=== PATIENT | male | born 1965 | race Caucasian/White ===

== ENCOUNTER 2021-03-29 05:41 | Outpatient (CLI) | payer MEDICAID ==
[~2021-03-29] VITALS: Ht 195.6 cm; Wt 97.1 kg
[2021-03-29] MEDS ORDERED: TIMO5DRO5 OP (14:14)
[2021-03-29] MEDS ORDERED: TMSL.4C PO (14:14)
[2021-03-29] MEDS ORDERED: LISI-729 PO (14:14)
[2021-03-29] MEDS ORDERED: FLUT1BLS3 IH (14:14)
[2021-03-29] MEDS ORDERED: MONT10TA32 PO (14:14)
[2021-03-29] MEDS ORDERED: WARF7.5T3 PO (14:14)
[2021-03-29] MEDS ORDERED: RT-ALBUINH IH (14:14)
[2021-03-29] MEDS ORDERED: NORT75CA PO (14:14)
[2021-03-29] MEDS ORDERED: ATOR20TA66 PO (14:14)
[2021-03-29] MEDS ORDERED: LATA7.5D OP (14:14)
[2021-03-29] MEDS ORDERED: GABA300C PO (14:14)
[2021-03-29] MEDS ORDERED: FLUT16SP22 NS (14:14)
[2021-03-29] MEDS ORDERED: PARO30TA3 PO (14:14)
[2021-03-31] MEDS ORDERED: ACET325C7 PO (11:37)
[2021-03-31] MEDS ORDERED: GAMMAGARD IV (11:37)
== END 2021-03-31 13:21 | disposition home or self-care (01) ==
LOC: PREOP 05:41
PROVIDERS: ATTEND Surgery
DX: Z01.818 Encounter for other preprocedural examination (principal)

== ENCOUNTER 2021-04-05 08:28 | Day surgery (SDC) | payer MEDICARE, MEDICAID ==
[~2021-04-05] VITALS: Ht 195.6 cm; Wt 97.6 kg
[~2021-04-05 08:28] MED LIST: ACET325C7 PO; ATOR20TA66 PO; FLUT16SP22 NS; FLUT1BLS3 IH; GABA300C PO; GAMMAGARD IV; LATA7.5D OP; LISI-729 PO; MONT10TA32 PO; NORT75CA PO; PARO30TA3 PO; RT-ALBUINH IH; TIMO5DRO5 OP; TMSL.4C PO; WARF7.5T3 PO
[2021-04-05] MEDS ORDERED: LACTATED RINGERS 1,000 ML IV ONE (08:36)
[2021-04-05] MEDS ORDERED: LACTATED RINGERS 1,000 ML IV STA (08:37)
[2021-04-05 08:45] VITALS: BP 112/81
--- NOTE | 2021-04-05 09:00 | Progress Note-Pre Operative ---
Pre-Operative Progress Note H&P Reviewed The H&P was reviewed, patient examined and no changes noted. Time Seen by Provider: 08:58 Date H&P Reviewed: Apr 05, 2021 Time H&P Reviewed: 08:58 Pre-Operative Diagnosis: Screening colonoscopy SWATI TREJO DO Apr 05, 2021 08:59
[2021-04-05] MEDS ORDERED: MIDAZOLAM 2 MG/2 ML (VERSED) VIAL ONE (10:02)
[2021-04-05] MEDS ORDERED: PROPOFOL INJECTION 50 ML IV ONE (10:02)
[2021-04-05 10:43] VITALS: BP 97/55
--- NOTE | 2021-04-05 10:43 | Progress Note-Post Operative ---
Post-Operative Progess Note Surgeon (s)/Frame Gate Mortiser Operator (s) Surgeon SWATI TREJO DO Frame Gate Mortiser Operator: Darin Goldberg MSIV Pre-Operative Diagnosis Screening colonoscopy Post-Operative Diagnosis polyps diverticula inbt hemorrhoids Procedure & Operative Findings Date of Procedure 04/05/21 Procedure Performed/Findings Colon with Snare polypectomy After informed consent was obtained, the patient was brought to the endoscopy suite and placed in the bed in the left lateral decubitus position. He was administered IV sedation by the ACQUISITION LEAD, who then monitored his vitals the entire time, heart rate, blood pressure and pulse ox and the scope was inserted, started the colonoscopy. Pushed all the way into about 150 cm to get all the way to cecum, took a picture of the appendiceal orifice, noted the ileocecal valve and then slowly withdrew the scope, insufflating to look circumferentially at the godfrey; starting in the cecum, up the ascending colon. Where I saw 3 small polyps; able to remove one. Then went up to the hepatic flexure, then down the transverse colon, splenic flexure, into the descending colon, down into the sigmoid (took pic of diverticula) and finally into the rectum, retroflexed in the rectal vault, saw some minimal internal hemorrhoids and took a picture of this. The patient tolerated the procedure and he recovered in the endoscopy suite. Anesthesia Type IV sedation by ACQUISITION LEAD Estimated Blood Loss Estimated blood loss (mL): scant Specimens/Packing Specimens Removed asc colon polyp SWATI TREJO DO Apr 05, 2021 10:43
--- NOTE | 2021-04-05 10:44 | Endoscopy Discharge Instruct ---
Endo Procedure/Findings Findings 1.: Polyp 2.: Diverticulosis 3.: Internal Hemorrhoids Discharge Instructions - Activity: You might feel a little sleepy until tomorrow. This is due to the medicine you received to relax you. Until tomorrow, you should: NOT drive a car, operate machinery or power tools. NOT drink any alcoholic beverages. NOT make any important decisions or sign importortant papers. Do not return to work until tomorrow, unless otherwise instructed. Resume previous activities tomorrow. Diet: Start by taking liquids. If you tolerate liquids, advance to solid food. 1.: Colonscopy in 5 years Notify Physician - If you experience excessive bleeding, unusual abdominal pain, fever, or chest pain, contact your doctor immediately. SWATI TREJO DO Apr 05, 2021 10:44
[2021-04-05 10:45] VITALS: BP 105/57
[2021-04-05 11:20] VITALS: BP 110/60
--- NOTE | 2021-04-05 12:11 | Anesthesia-General Post-Op ---
MAC Patient Condition Mental Status/LOC: Same as Preop Cardiovascular: Satisfactory Nausea/Vomiting: Absent Respiratory: Satisfactory Pain: Controlled Complications: Absent Post Op Complications Complications None Follow Up Care/Instructions Patient Instructions None needed. Anesthesiology Discharge Order Discharge Order Patient is doing well, no complaints, stable vital signs, no apparent adverse anesthesia problems. No complications reported per nursing. RAMÍREZ JOSE CRNA Apr 05, 2021 12:11
== END 2021-04-05 11:27 | disposition home or self-care (01) ==
LOC: ENDO 08:28
PROVIDERS: ATTEND Surgery
DX: Z12.11 Encounter for screening for malignant neoplasm of colon (principal); K63.5 Polyp of colon; K57.30 Diverticulosis of large intestine without perforation or abscess without bleeding; K64.8 Other hemorrhoids; J44.9 Chronic obstructive pulmonary disease, unspecified; D64.9 Anemia, unspecified; F32.9 Major depressive disorder, single episode, unspecified; E78.00 Pure hypercholesterolemia, unspecified; R03.0 Elevated blood-pressure reading, without diagnosis of hypertension; Z79.01 Long term (current) use of anticoagulants; Z79.899 Other long term (current) drug therapy; Z79.51 Long term (current) use of inhaled steroids; Z80.9 Family history of malignant neoplasm, unspecified; Z86.010 Personal history of colon polyps
CPT/HCPCS: 88305

== ENCOUNTER 2021-05-07 11:19 | Inpatient (IN) | payer MEDICARE, MEDICAID ==
[~2021-05-07] VITALS: Ht 193 cm; Wt 94.1 kg
[~2021-05-07 11:19] MED LIST changes: -FLUT16SP22 NS; +FLUT16SP22 NSEACH; -TIMO5DRO5 OP; +TIMO5DRO5 OU
[2021-05-07] MEDS ORDERED: LACTATED RINGERS 1,000 ML IV ONE (11:45)
[2021-05-07 12:29] LABS: BASOPHILS % (AUTO) 0 % (0-10); EOSINOPHILS % (AUTO) 0 % (0-10); HEMATOCRIT 40 % (40-54); HEMOGLOBIN 13.3 g/dL (13.3-17.7); LYMPHOCYTES # (AUTO) 1.1 10^3/uL (1.0-4.0); LYMPHOCYTES % (AUTO) 9 % (12-44); MEAN CORPUSCULAR HEMOGLOBIN 29 pg (25-34); MEAN CORPUSCULAR HGB CONC 34 g/dL (32-36); MEAN CORPUSCULAR VOLUME 87 fL (80-99); MEAN PLATELET VOLUME 9.3 fL (9.0-12.2); MONOCYTES # (AUTO) 0.7 10^3/uL (0.0-1.0); MONOCYTES % (AUTO) 6 % (0-12); NEUTROPHILS # (AUTO) 9.8 10^3/uL (1.8-7.8); NEUTROPHILS % (AUTO) 85 % (42-75); PLATELET COUNT 187 10^3/uL (130-400); WHITE BLOOD COUNT 11.6 10^3/uL (4.3-11.0)
[2021-05-07 12:42] LABS: ALBUMIN 3.2 GM/DL (3.2-4.5); CHLORIDE 101 MMOL/L (98-107); POTASSIUM 3.7 MMOL/L (3.6-5.0); SODIUM 131 MMOL/L (135-145)
[2021-05-07 12:43] LABS: CALCIUM 8.8 MG/DL (8.5-10.1)
[2021-05-07 12:44] LABS: GLUCOSE 113 MG/DL (70-105); TOTAL PROTEIN 7.3 GM/DL (6.4-8.2)
[2021-05-07 12:45] LABS: CARBON DIOXIDE 18 MMOL/L (21-32)
[2021-05-07 12:46] LABS: BILIRUBIN,TOTAL 0.8 MG/DL (0.1-1.0)
[2021-05-07 12:47] LABS: ALKALINE PHOSPHATASE 87 U/L (40-136)
[2021-05-07 12:48] LABS: CREATININE SERUM 0.78 MG/DL (0.60-1.30); GFR ESTIMATED 102
[2021-05-07 12:49] LABS: BUN/CREATININE RATIO 17
[2021-05-07 12:50] LABS: INR 1.5 (0.8-1.4); PROTHROMBIN TIME PATIENT 18.7 SEC (12.2-14.7)
[2021-05-07 12:51] LABS: ALANINE AMINOTRANSFERASE 28 U/L (0-55); MAGNESIUM 1.8 MG/DL (1.6-2.4)
[2021-05-07 13:05] LABS: AMPHETAMINE SCREEN, URINE NEGATIVE (NEGATIVE); BARBITURATE SCREEN URINE NEGATIVE (NEGATIVE); BENZODIAZEPINES SCREEN URINE NEGATIVE (NEGATIVE); CANNABINOID SCREEN, URINE NEGATIVE (NEGATIVE); COCAINE SCREEN URINE NEGATIVE (NEGATIVE); METHADONE STAT NEGATIVE (NEGATIVE); METHAMPHETAMINE SCREEN URINE S NEGATIVE (NEGATIVE); OPIATE SCREEN URINE NEGATIVE (NEGATIVE); OXYCODONE STAT NEGATIVE (NEGATIVE); PROPOXYPHENE STAT NEGATIVE (NEGATIVE); TRICYCLIC ANTIDEPRESSANTS SCRE NEGATIVE (NEGATIVE)
--- OUTSIDE RECORDS SUMMARY | 2021-05-07 13:15 | XMS REPORT | Clinical Summary ---
Author Author [facility] Organization [facility] Address Unknown Phone Unavailable Care Team Providers Care Hand Cutter Name Role Phone PCP Unavailable Allergies Not on File Medications Not on file Active Problems Not on file Social History Date Tobacco Use Types Packs/Day Years Used Never Assessed Sex Assigned at Date Recorded Not on file Last Filed Vital Signs Not on file Plan of Treatment Not on file Results Not on filefrom Last 3 Months
--- OUTSIDE RECORDS SUMMARY | 2021-05-07 13:15 | XMS REPORT | Clinical Summary ---
Author Author [facility] Organization [facility] Address Unknown Phone Unavailable Care Team Providers Care Metal Bonder Name Role Phone PCP Unavailable Source Comments [facility] (Labor and Delivery) documents do [facility] appear [facility] Allergies Not on File Medications Please verify current medications with patient. Not on file Active Problems Not on file Social History Date Tobacco Use Types Packs/Day Years Used Never Assessed Sex Assigned at Date Recorded Not on file Last Filed Vital Signs Not on file Plan of Treatment Health Maintenance Due Date Last Done Comments CT Colonography 1965 Colon cancer: DNA-based 1965 stool test (Cologuard) Sigmoidoscopy 1965 gFOBT or FIT 1965 COVID-19 Vaccine (1) 1975 Colonoscopy 2013 Colorectal Cancer 2013 Screening Influenza Vaccine (#1) 2021 Pneumococcal Vaccine: 65+ 2028 Years (1 of 1 - PPSV23) HPV Vaccine Aged Out No longer eligible based on patient's age to complete this topic Pneumococcal Vaccine: Aged Out No longer eligib le based on patient's age to Pediatrics (0 to 5 Years) complete this topic and At-Risk Patients (6 to 64 Years) Results Not on filefrom Last 3 Months
[2021-05-07] MEDS ORDERED: KETOROLAC 30 MG/ML VIAL IVP ONE (13:30)
--- NOTE | 2021-05-07 13:54 | Diagnostic Imaging Report ---
INDICATION: Generalized chest pain. TIME OF EXAM: 1:47 p.m. COMPARISON: No prior studies are available for comparison. FINDINGS: Right-sided chest wall port has tip overlying the SVC-right atrial junction. The heart size is normal. The lungs are clear. No infiltrates are seen. There is no effusion or pneumothorax. IMPRESSION: No acute cardiopulmonary process is detected. Dictated by: Dictated on workstation # [id number]
[2021-05-07 14:08] LABS: BILIRUBIN,URINE NEGATIVE (NEGATIVE); CLARITY,URINE CLEAR; COLOR,URINE YELLOW; GLUCOSE, URINE (UA) NEGATIVE (NEGATIVE); KETONES,URINE 3+ (NEGATIVE); LEUKOCYTE ESTERASE ,URINE NEGATIVE (NEGATIVE); NITRITE,URINE NEGATIVE (NEGATIVE); PH,URINE 8.5 (5-9); PROTEIN,URINE 2+ (NEGATIVE)
[2021-05-07 14:17] LABS: BACTERIA,URINE NEGATIVE /HPF; RBC,URINE >100 /HPF; WBC,URINE RARE /HPF
[2021-05-07] MEDS ORDERED: fentaNYL INJ 100 MCG/2 ML AMP IVP ONE (14:30)
--- NOTE | 2021-05-07 15:04 | ED General ---
General Chief Complaint: General Problems/Pain Stated Complaint: GENERALIZED PAIN Nursing Triage Note: PT BROUGHT IN BY [facility] FROM HOME WITH COMPLAINT OF GENERALIZED PAIN. PT RECEVIED 3RD MODERNA BOOSTER 2 DAYS AGO. Source of Information: Patient, Family, Old Records, Other (Dr. Pettit) (SAE CERON MD) History of Present Illness Date Seen by Provider: May 07, 2021 Time Seen by Provider: 11:43 Initial Comments This 56-year-old man presents to the emergency room via [facility] with complaints of generalized pain. He received motor none booster 2 days ago. He has had some intermittent problems with shoulder pain and chest pain over the last several days. He has been evaluated in the clinic and in the ER in [place]. No significant abnormalities were identified. Patient is a poor historian and seems somewhat confused. After obtaining a better history it sounds like his primary pain is pleuritic in nature and sternal region. He is somewhat tender to pressure over the sternum. He has a history of prescription substance abuse but according to family he is not presently using to their knowledge. Family reports that he has not seemed himself for the past couple of days. He was confronted about that last night at a birthday constitution party. He reported he was groggy because he took Benadryl. Much history was obtained from his daughter Christine who can be reached at [phone]. I also spoke with his son Darin whose phone number is the chart. He is afebrile with stable vital signs. He has a history of IgG hypogammaglobulinemia and receives IgG infusions monthly in [place]. Dr. Cisco Pettit as his PCP. Family reports that he is normally intelligent in his conversation and that his current level of communication is not typical. (SAE CERON MD) Allergies and Home Medications Allergies Coded Allergies: morphine (Unverified Allergy, Severe, 03/31/21) RESP. ISSUES peanut (Unverified Allergy, Severe, 03/31/21) BREATHING ISSUES sumatriptan (Unverified Allergy, Severe, 03/31/21) BREATHING ISSUES Home Medications Acetaminophen 325 Mg Capsule, 500 MG PO TID PRN for PAIN, (Reported) Last Action: Last Taken Edited Albuterol Sulfate 1 Puff Puff, 2 PUFF IH Q4H, (Reported) 1 PUFF = 90 MCG Atorvastatin Calcium 20 Mg Tablet, 20 MG PO DAILY, (Reported) Last Action: Last Taken Edited Fluticasone Propionate 16 Gm [place].susp, 16 GM NS DAILY, (Reported) Fluticasone/Umeclidin/Vilanter 1 Each Blst.w.dev, 1 EACH IH DAILY, (Reported) Gabapentin 300 Mg Capsule, 900 MG PO TID, (Reported) Last Action: Last Taken Edited Latanoprost/Pf 7.5 Ml Drops, 7.5 ML OP UD, (Reported) Lisinopril 5 Mg Tablet, 5 MG PO DAILY, (Reported) Montelukast Sodium 10 Mg Tablet, 10 MG PO DAILY, (Reported) Nortriptyline HCl 75 Mg Capsule, 75 MG PO DAILY, (Reported) Paroxetine HCl 30 Mg Tablet, 30 MG PO DAILY, (Reported) Last Action: Last Taken Edited Tamsulosin HCl 0.4 Mg Cap, 0.4 MG PO DAILY, (Reported) Last Action: Last Taken Edited Timolol Maleate 5 Ml Drops, 1 DROP OP BID, (Reported) Tizanidine HCl 2 Mg Tablet, 2 MG PO DAILY, (Reported) Last Action: New Order Warfarin Sodium 7.5 Mg Tablet, 7.5 MG PO DAILY, (Reported) Last Action: Last Taken Edited [Gammagard ] , 70 GM IV MONTHLY, (Reported) Patient Home Medication List Home Medication List Reviewed: Yes (SAE CERON MD) Review of Systems Review of Systems Constitutional: see HPI, malaise EENTM: no symptoms reported Respiratory: see HPI Cardiovascular: no symptoms reported Gastrointestinal: no symptoms reported Genitourinary: no symptoms reported Musculoskeletal: see HPI Skin: no symptoms reported Psychiatric/Neurological: See HPI Hematologic/Lymphatic: No Symptoms Reported Immunological/Allergic: no symptoms reported (SAE CERON MD) Past Zwxiipw-Wdnwjq-Hirwul Hx Patient Social History Tobacco Use?: Yes Smoking Status: Unknown if Ever Smoked Pt feels they are or have been: No (SAE CERON MD) Seasonal Allergies Seasonal Allergies: No (SAE CERON MD) Past Medical History Surgeries: Yes (BACK SURG X4, X5 RT KNEE SURG, RT HIP IT BAND RELEASE,RT SHOULDER SCOPE X2) Abdominal, Gallbladder, Orthopedic Respiratory: Yes Asthma, COPD Cardiac: No Neurological: No Genitourinary: Yes Prostate Problems Gastrointestinal: Yes Abdominal Hernia Musculoskeletal: Yes (X4 BACK SURGERIES) Back Injury Endocrine: No HEENT: Yes Glaucoma Hearing Impairment: Denies Cancer: No Psychosocial: Yes Depression Integumentary: No Blood Disorders: Yes (HYPOGAMULGLOBULINEMIA) Adverse Reaction/Blood Tranf: No (SAE CERON MD) Physical Exam Vital Signs Vital Signs - First Documented 05/07/21 11:22 Temp 37.0 Pulse 93 Resp 16 B/P (MAP) 157/108 (124) Pulse Ox 97 O2 Delivery Room Air (HERMELINDA VINCENT DO) Vital Signs Capillary Refill : Less Than 3 Seconds (SAE CERON MD) Height, Weight, BMI Height: '" Weight: lbs. oz. kg; 24.00 BMI Method: General Appearance: WD/WN, Mild Distress (Rounds and groans, lying in bed) HEENT: PERRL/EOMI, Normal ENT Inspection, Other (His membranes moist) Neck: Normal Inspection Respiratory: Lungs Clear, Normal Breath Sounds, No Accessory Muscle Use, Other (Anterior chest tender with pressure) Cardiovascular: Regular Rate, Rhythm, No Edema, No Murmur Gastrointestinal: Normal Bowel Sounds, Non Tender, Soft Back: Normal Inspection Extremity: Normal Inspection, No Pedal Edema Neurologic/Psychiatric: Alert, No Motor/Sensory Deficits, senior talent acquisition specialist II-XII Norm as Tested, Other (intermittently confused, poor historian, follows commands) Skin: Normal Color, Warm/Dry (SAE CERON MD) Focused Exam Lactate Level 05/07/21 14:24: Lactic Acid Level 1.22 (HERMELINDA VINCENT DO) Lactic Acid Level Laboratory Tests Test 05/07/21 14:24 Lactic Acid Level 1.22 MMOL/L (0.50-2.00) (HERMELINDA VINCENT DO) Procedures/Interventions Discussed Risk,Benefits: Yes Patient Consents: Yes Opening Pressure: 16 LP performed by anesthesia. See anesthesia note. (SAE CERON MD) Progress/Results/Core Measures Suspected Sepsis SIRS Temperature: Pulse: 93 Respiratory Rate: 16 Laboratory Tests 05/07/21 12:20: White Blood Count 11.6H Blood Pressure 157 /108 Mean: 124 05/07/21 14:24: Lactic Acid Level 1.22 Laboratory Tests 05/07/21 12:20: Creatinine 0.78, INR Comment 1.5H, Platelet Count 187, Total Bilirubin 0.8 05/07/21 18:14: INR Comment 1.3 (ASE CERON MD) Results/Orders Lab Results Laboratory Tests Test 05/07/21 12:20 05/07/21 12:22 05/07/21 12:27 05/07/21 12:39 Range/Units White Blood Count 11.6 H 4.3-11.0 10^3/uL Red Blood Count 4.56 4.30-5.52 10^6/uL Hemoglobin 13.3 13.3-17.7 g/dL Hematocrit 40 40-54 % Mean Corpuscular Volume 87 80-99 fL Mean Corpuscular Hemoglobin 29 25-34 pg Mean Corpuscular Hemoglobin Concent 34 32-36 g/dL Red Cell Distribution Width 12.2 10.0-14.5 % Platelet Count 187 130-400 10^3/uL Mean Platelet Volume 9.3 9.0-12.2 fL Immature Granulocyte % (Auto) 1 % Neutrophils (%) (Auto) 85 H 42-75 % Lymphocytes (%) (Auto) 9 L 12-44 % Monocytes (%) (Auto) 6 0-12 % Eosinophils (%) (Auto) 0 0-10 % Basophils (%) (Auto) 0 0-10 % Neutrophils # (Auto) 9.8 H 1.8-7.8 10^3/uL Lymphocytes # (Auto) 1.1 1.0-4.0 10^3/uL Monocytes # (Auto) 0.7 0.0-1.0 10^3/uL Eosinophils # (Auto) 0.0 0.0-0.3 10^3/uL Basophils # (Auto) 0.0 0.0-0.1 10^3/uL Immature Granulocyte # (Auto) 0.1 0.0-0.1 10^3/uL Prothrombin Time 18.7 H 12.2-14.7 SEC INR Comment 1.5 H 0.8-1.4 Activated Partial Thromboplast Time 138 *H 24-35 SEC D-Dimer 1.58 H 0.00-0.49 UG/ML Sodium Level 131 L 135-145 MMOL/L Potassium Level 3.7 3.6-5.0 MMOL/L Chloride Level 101 98-107 MMOL/L Carbon Dioxide Level 18 L 21-32 MMOL/L Anion Gap 12 5-14 MMOL/L Blood Urea Nitrogen 13 7-18 MG/DL Creatinine 0.78 0.60-1.30 MG/DL Estimat Glomerular Filtration Rate 102 BUN/Creatinine Ratio 17 Glucose Level 113 H 70-105 MG/DL Calcium Level 8.8 8.5-10.1 MG/DL Corrected Calcium 9.4 8.5-10.1 MG/DL Magnesium Level 1.8 1.6-2.4 MG/DL Total Bilirubin 0.8 0.1-1.0 MG/DL Aspartate Amino Transf (AST/SGOT) 32 5-34 U/L Alanine Aminotransferase (ALT/SGPT) 28 0-55 U/L Alkaline Phosphatase 87 40-136 U/L Myoglobin 52.6 10.0-92.0 NG/ML Troponin I < 0.028 <0.028 NG/ML C-Reactive Protein High Sensitivity 33.45 H 0.00-0.50 MG/DL Total Protein 7.3 6.4-8.2 GM/DL Albumin 3.2 3.2-4.5 GM/DL Serum Alcohol < 10 <10 MG/DL Urine Opiates Screen NEGATIVE NEGATIVE Urine Oxycodone Screen NEGATIVE NEGATIVE Urine Methadone Screen NEGATIVE NEGATIVE Urine Propoxyphene Screen NEGATIVE NEGATIVE Urine Barbiturates Screen NEGATIVE NEGATIVE Ur Tricyclic Antidepressants Screen NEGATIVE NEGATIVE Urine Phencyclidine Screen NEGATIVE NEGATIVE Urine Amphetamines Screen NEGATIVE NEGATIVE Urine Methamphetamines Screen NEGATIVE NEGATIVE Urine Benzodiazepines Screen NEGATIVE NEGATIVE Urine Cocaine Screen NEGATIVE NEGATIVE Urine Cannabinoids Screen NEGATIVE NEGATIVE Urine Color YELLOW Urine Clarity CLEAR Urine pH 8.5 5-9 Urine Specific [place] 1.020 1.016-1.022 Urine Protein 2+ H NEGATIVE Urine Glucose (UA) NEGATIVE NEGATIVE Urine Ketones 3+ H NEGATIVE Urine Nitrite NEGATIVE NEGATIVE Urine Bilirubin NEGATIVE NEGATIVE Urine Urobilinogen 1.0 < = 1.0 MG/DL Urine Leukocyte Esterase NEGATIVE NEGATIVE Urine RBC (Auto) 3+ H NEGATIVE Urine RBC >100 H /HPF Urine WBC RARE /HPF Urine Crystals NONE /LPF Urine Bacteria NEGATIVE /HPF Urine Casts NONE /LPF Urine Mucus NEGATIVE /LPF Urine Culture Indicated NO SARS-CoV-2 RNA (RT-PCR) Not Detected Not Detecte Test 05/07/21 14:24 05/07/21 14:29 05/07/21 18:14 05/07/21 19:52 Range/Units Lactic Acid Level 1.22 0.50-2.00 MMOL/L Ammonia 29 11-32 UMOL/L Procalcitonin 0.63 H <0.10 NG/ML Prothrombin Time 16.8 H 12.2-14.7 SEC INR Comment 1.3 0.8-1.4 CSF Tube Number 4 CSF Appearance CLEAR CSF Color COLORLESS CSF WBC 154 H 0-5 CELLS CSF RBC 243 H 0-0 CELLS CSF Lymphocytes 4 % CSF Mononuclear WBCs 18 % CSF Polynuclear WBCs 78 % CSF Glucose 38 L 50-80 MG/DL CSF Total Protein 251 H 15-40 MG/DL (HERMELINDA VINCENT DO) My Orders (HERMELINDA VINCENT DO) Medications Given in ED Current Medications Medications Dose Ordered Sig/Fede Route Start Time Stop Time Status Last Admin Dose Admin Ceftriaxone Sodium 1000 mg/ Sterile Water 10 ml @ 200 mls/hr ONCE ONCE IV 05/07/21 18:15 05/07/21 18:17 DC 05/07/21 19:19 200 MLS/HR Ceftriaxone Sodium 1000 mg/ Sterile Water 10 ml @ 200 mls/hr ONCE ONCE IV 05/07/21 18:15 05/07/21 18:17 DC 05/07/21 19:19 200 MLS/HR Fentanyl Citrate 50 mcg ONCE ONCE IVP 05/07/21 14:30 05/07/21 14:31 DC 05/07/21 14:42 50 MCG Iohexol 100 ml ONCE ONCE IV 05/07/21 15:15 05/07/21 15:16 DC 05/07/21 16:14 77 ML Ketorolac Tromethamine 10 mg ONCE ONCE IVP 05/07/21 13:30 05/07/21 13:31 DC 05/07/21 13:41 10 MG Sodium Chloride 100 ml ONCE ONCE IV 05/07/21 15:15 05/07/21 15:16 DC 05/07/21 16:14 80 ML (HERMELINDA VINCENT DO) Vital Signs/I&O 05/07/21 11:22 Temp 37.0 Pulse 93 Resp 16 B/P (MAP) 157/108 (124) Pulse Ox 97 O2 Delivery Room Air 05/08/21 00:00 Intake Total 1020 ml Balance 1020 ml (HERMELINDA VINCENT DO) Vital Signs/I&O Capillary Refill : Less Than 3 Seconds (SAE CERON MD) Blood Pressure Mean: 124 Progress Note : Progress Note Patient received a liter of IV fluid. Work-up was relatively unremarkable initially. D-dimer was elevated and INR was subtherapeutic. Therefore CT angiogram of the chest was obtained. No pulmonary emboli were identified. He is afebrile with a normal white count but CRP is significantly elevated. This is a matter of concern. Due to his waxing and waning altered mental status and elevated CRP with immunodeficiency, LP was felt necessary. X-ray of the lumbar spine was obtained to ensure no hardware from his prior surgeries would be in the way. Anesthesia performed LP with an opening pressure of 16 cm of water. He received Rocephin 2 g IV presumptively for possible meningitis. He did have sinusitis noted on CT of the head. (SAE CERON MD) Progress Note : Progress Note 2100--ASSUMED CARE OF PT AT SHIFT CHANGE. LP HAS BEEN DONE AND IS PENDING RESULTS. PT CONTINUES TO BE CONFUSED AND AGITATED, NOT TALKING OR FOLLOWING COMMANDS. DR. CERON HAS ALREADY DISCUSSED WITH DR. PALMER AND PT IS BEING ADMITTED TO ICU WITH A SITTER. PT HAS BEEN GIVEN ROCEPHIN PT GIVEN ATIVAN JUST PRIOR TO BEING TRANSFERRED TO ICU, DUE TO AGITATION, TRYING TO GET OUT OF BED. (HERMELINDA VINCENT DO) ECG Initial ECG Impression Date: May 07, 2021 Initial ECG Impression Time: 12:31 Initial ECG Rate: 91 Initial ECG Rhythm: S.Tach Comment Mild sinus tachycardia with multiple premature atrial complexes. No ST elevation or depression. No abnormal intervals or axis deviation. (SAE CERON MD) Diagnostic Imaging Diagonstic Imaging: Xray Plain Films/CT/US/NM/MRI: chest Comments Chest x-ray viewed by me and report reviewed. See report below: NAME: ROCHELLE MOELLER REC#: [id number] PT STATUS: REG ER : 1965 PHYSICIAN: SAE CERON MD ADMIT DATE: 05/07/21/ER Signed Date of Exam:05/07/21 CHEST 1 VIEW, AP/PA ONLY INDICATION: Generalized chest pain. TIME OF EXAM: 1:47 p.m. COMPARISON: No prior studies are available for comparison. FINDINGS: Right-sided chest wall port has tip overlying the SVC-right atrial junction. The heart size is normal. The lungs are clear. No infiltrates are seen. There is no effusion or pneumothorax. IMPRESSION: No acute cardiopulmonary process is detected. Dictated by: Dictated on workstation # [id number] Dict: 05/07/21 1349 Trans: 05/07/21 1502 [id number] Interpreted by: KAREN FERRERA MD Electronically signed by: KAREN FERRERA MD 05/07/21 1505 Diagonstic Imaging: CT Plain Films/CT/US/NM/MRI: chest Comments CT angiogram chest viewed by me and preliminary report reviewed. See preliminary report below: (SAE CERON MD) Departure Communication (Admissions) Family Conversation SPOKE WITH PT'S DAUGHTER AND UPDATED HER ON PT'S CONDITION. 2116--SPOKE WITH DR. PALMER, ACCEPTS PT FOR ADMIT. REVIEWED LP RESULTS. WILL ADD ENCEPHALITIS PANEL TO THE CSF STUDIES. WILL ALSO GIVE ACYCLOVIR. 2127--REPORT TO E-ICU PHYSICIAN. NO ADDITIONAL RECOMMENDATIONS AT THIS TIME (HERMELINDA VINCENT DO) Impression Primary Impression: Encephalitis Additional Impressions: Atypical chest pain Hematuria Qualified Codes: R31.9 - Hematuria, unspecified Abnormal CT scan, chest Altered mental status Qualified Codes: R41.82 - Altered mental status, unspecified Immunocompromised Sinusitis Qualified Codes: J32.9 - Chronic sinusitis, unspecified IgG gammopathy Disposition: ADMITTED INPATIENT Condition: Stable Admissions Decision to Admit Reason: Admit from ER (General) Decision to Admit/Date: May 07, 2021 Time/Decision to Admit Time: 21:20 (HERMELINDA VINCENT DO) Departure-Patient Inst. Referrals: NO,LOCAL PHYSICIAN (PCP/Family) Primary Care Physician SAE CERON MD May 07, 2021 15:04 HERMELINDA VINCENT DO May 07, 2021 21:55
[2021-05-07] MEDS ORDERED: HOLD METFORMIN - RECEIVED CONTRAST 20 ML VIAL IV SCH (15:15)
[2021-05-07] MEDS ORDERED: NS 100 ML (IVPB) BAG IV ONE (15:15)
[2021-05-07] MEDS ORDERED: IOHEXOL 350 MG/ML 100 ML (OMNIPAQUE 350) VIAL IV ONE (15:15)
--- NOTE | 2021-05-07 16:29 | Diagnostic Imaging Report ---
PROCEDURE: CT angiography of the chest with contrast. TECHNIQUE: Multiple contiguous axial images were obtained through the chest after uneventful bolus administration of intravenous contrast. 3D reconstructed CTA MIP acquisitions were also performed. Auto Exposure Controls were utilized during the CT exam to meet ALARA standards for radiation dose reduction. INDICATION: Dyspnea. Diaphoresis. COMPARISON: None. FINDINGS: There is no evidence of acute pulmonary embolus to the segmental division of the pulmonary arteries. Evaluation of the subsegmental division is suboptimal secondary to motion artifact. Thoracic aorta is normal in course and caliber. By NASCET criteria, there is no focal significant stenosis. There is no evidence of dissection or aneurysm. Heart size is within normal limits. There is no large pericardial effusion. No pathologically enlarged or morphologically abnormal adenopathy is seen within the mediastinum or yoav. There is, however, asymmetric adenopathy in the left axilla. There is also stranding in the subcutaneous fat. Largest lymph node measures 2 x 1.8 cm. Evaluation of the lung kelsey demonstrates mild dependent atelectasis. There is no focal consolidation, large effusion, nor pneumothorax. Small micronodule may be obscured by motion artifact. No distinct pulmonary parenchymal masses are seen. Osseous structures show no acute abnormalities. No lytic or blastic osseous lesions are seen. Included portions of the upper abdomen show partially visualized hypodensity adjacent to the medial margins of the right liver superior to the expected location of the right kidney. Right kidney is not included in the [id number]. IMPRESSION: 1. No acute pulmonary embolus to the segmental division of the pulmonary arteries. 2. Scattered atelectasis and image degradation secondary to motion artifact, but otherwise no acute cardiopulmonary process. 3. Left axillary adenopathy with stranding in the subcutaneous fat. Correlation with site of recent vaccine administration is recommended. 4. Partially visualized hypodensity within the posterior right upper abdominal quadrant. Conceivably, this could be on the basis of a renal cyst. Dedicated CT of the abdomen could be performed for further evaluation when clinically appropriate. Dictated by: Dictated on workstation # [id number]
[2021-05-07] MEDS ORDERED: cefTRIAXone 1,000 MG in WATER (STERILE) FOR INJECTION 10 ML IV ONE ×4 (18:15)
[2021-05-07 18:33] LABS: INR 1.3 (0.8-1.4); PROTHROMBIN TIME PATIENT 16.8 SEC (12.2-14.7)
--- NOTE | 2021-05-07 18:34 | Diagnostic Imaging Report ---
PROCEDURE: CT head without contrast. TECHNIQUE: Multiple contiguous axial images were obtained through the brain without the use of intravenous contrast. Auto Exposure Controls were utilized during the CT exam to meet ALARA standards for radiation dose reduction. INDICATION: Altered mental status, confusion. COMPARISON: None available. FINDINGS: Examination is limited secondary to patient motion. Images were repeated in order to obtain better quality images. No definite intracranial hemorrhage. No midline shift, herniation, obstructive hydrocephalus or extra-axial fluid collection. Focal ovoid hypodensity is noted within the inferior aspect of the right basal ganglia. Left scleral banding. The orbits are otherwise unremarkable. Fluid and mucosal thickening within the sphenoid sinuses and scattered ethmoidal air cells. The calvarium appears intact. IMPRESSION: Age-indeterminate lacunar infarction versus dilated perivascular space within the inferior right basal ganglia. Fluid and mucosal thickening within the sphenoid sinuses and scattered ethmoidal air cells. Recommend correlation for acute sinusitis. Limited examination secondary to motion. If there remains clinical concern, further evaluation with MRI of the brain would be recommended. Dictated by: Dictated on workstation # [id number]
--- NOTE | 2021-05-07 19:29 | Diagnostic Imaging Report ---
INDICATION: Evaluate for hardware prior to lumbar puncture. COMPARISON: None available. TECHNIQUE: Single frontal radiograph of the lumbar spine dated May 07, 2021. FINDINGS: Inferior vena cava filter is present just to the right of the L3/L4 level. Multiple prominent gas-filled loops of bowel are noted. This includes some loops of small bowel which measure over 3 cm. Five lumbar type vertebral bodies are present. No orthopedic hardware within the lumbar spine, itself. The sacroiliac joints are intact. No acute fracture. Mild facet joint degenerative changes. IMPRESSION: Gas-distended loops of bowel, including mildly dilated loops of small bowel. Findings may relate to ileus versus bowel obstruction. Recommend clinical correlation. If there is clinical concern for bowel obstruction, a CT of the abdomen and pelvis would be recommended. Degenerative changes within the lumbar spine without orthopedic hardware within the lumbar spine, itself. Inferior vena cava filter is in place. Dictated by: Dictated on workstation # [id number]
--- NOTE | 2021-05-07 20:11 | Anesthesia-Procedure Note ---
Procedures/Interventions Procedure Start/Stop/Diagnosis Date of Procedure: May 07, 2021 Start Time: 19:40 Referring Physician: Jose Preprocedural Diagnosis: Alt Mental Status, generalized weakness Brief History Consulted for LP by ER Dr. Garcia for Alt mental status and weakness to R/O meningitis. Pt CT showed nothing acute. Repeat INR 1.3. Multiple previous back surgeries but Lumbar A/P film showed no hardware. Pt was alert and consented to procedure. With RN and medical student at bedside, pt was turned left lateral decubitus for procedure. Betadine prep x3 to lumbar spine. Lidocaine 1% to skin 5cc. Initially attempted with 22 g spinal needle but due to severe scar tissue I had to change to 20g in kit. CSF obtained L3-4 after multiple attempts. Pt had difficulty holding still due to pain and I had to redirect multiple times. Opening pressure 16 cmH20. 4 samples of CSF fluid taken under sterile technique and released to RN with report. Needle withdrew and covered with band aid. Advised pt and RN importance of laying flat for a few hours. VSS with no complaints vocalilzed per pt.. Stop Time: 20:00 Postprocedural Diagnosis: Alt mental status, generalized weakness Lumbar Puncture Discussed Risk,Benefits: Yes Patient Consents: Yes Position: Lying, L3-4, L4-5, Left Sterile Technique: Yes Opening Pressure: 16 Fluid Color: clear, yellow tinted Spinal Needle Used: 20g Quinke 3 1/2inch RAMÍREZ JOSE CRNA May 07, 2021 20:11
[2021-05-07 20:29] LABS: CSF GLUCOSE 38 MG/DL (50-80)
[2021-05-07 21:09] LABS: CSF TOTAL PROTEIN 251 MG/DL (15-40)
[2021-05-07 21:17] LABS: APPEARANCE,CSF CLEAR
[2021-05-07 21:18] LABS: COLOR,CSF COLORLESS; RED BLOOD CELL,CSF 243 CELLS (0-0); WHITE BLOOD CELL,CSF 154 CELLS (0-5)
[2021-05-07 21:20] LABS: CSF TUBE NUMBER 4; LYMPHOCYTES,CSF 4 %
[2021-05-07] MEDS ORDERED: cefTRIAXone 2,000 MG in WATER (STERILE) FOR INJECTION 20 ML IV ONE (21:30)
[2021-05-07] MEDS ORDERED: LORazepam INJ 2 MG/ML (ATIVAN) VIAL IVP PRN (22:00)
[2021-05-07] MEDS ORDERED: ACYCLOVIR INJECTION 500 MG/10 ML INJ IV SCH (22:00)
[2021-05-07] MEDS ORDERED: ONDANSETRON 4 MG/2 ML (SDV) Z0FRAN IV PRN (23:30)
[2021-05-08] MEDS ORDERED: NS (IVPB) 250 ML ONE (00:19)
[2021-05-08] MEDS: D5 1/2 NS W/KCL 20 MEQ/L 1,000 ML IV SCH ×4 (00:28→20:59)
[2021-05-08] MEDS: ACYCLOVIR IV SCH ×3 (00:32→16:00)
[2021-05-08] MEDS: NS IV SCH ×3 (00:32→16:00)
[2021-05-08] MEDS: ACETAMINOPHEN 500 MG TAB (TYLENOL) PO PRN ×4 (00:38→21:00)
[2021-05-08 05:05] LABS: BASOPHILS % (AUTO) 0 % (0-10); EOSINOPHILS % (AUTO) 0 % (0-10); HEMATOCRIT 43 % (40-54); HEMOGLOBIN 14.1 g/dL (13.3-17.7); LYMPHOCYTES # (AUTO) 1.1 10^3/uL (1.0-4.0); LYMPHOCYTES % (AUTO) 8 % (12-44); MEAN CORPUSCULAR HEMOGLOBIN 29 pg (25-34); MEAN CORPUSCULAR HGB CONC 33 g/dL (32-36); MEAN CORPUSCULAR VOLUME 88 fL (80-99); MEAN PLATELET VOLUME 9.1 fL (9.0-12.2); MONOCYTES # (AUTO) 1.2 10^3/uL (0.0-1.0); MONOCYTES % (AUTO) 9 % (0-12); NEUTROPHILS # (AUTO) 11.6 10^3/uL (1.8-7.8); NEUTROPHILS % (AUTO) 83 % (42-75); PLATELET COUNT 198 10^3/uL (130-400); WHITE BLOOD COUNT 14.1 10^3/uL (4.3-11.0)
[2021-05-08 05:15] LABS: POTASSIUM 3.8 MMOL/L (3.6-5.0)
[2021-05-08 05:21] LABS: CREATININE SERUM 0.84 MG/DL (0.60-1.30); PHOSPHORUS 3.3 MG/DL (2.3-4.7)
[2021-05-08 05:24] LABS: MAGNESIUM 2.1 MG/DL (1.6-2.4)
[2021-05-08] MEDS ORDERED: VANCOMYCIN INJECTION 0.1 MG in NS (IVPB) 250 ML IV SCH (08:00)
[2021-05-08] MEDS ORDERED: VANCOMYCIN 2000 MG/NS 500 ML IVPB IV NR ×2 (09:00)
[2021-05-08] MEDS: KETOROLAC 30 MG/ML VIAL IVP PRN ×3 (09:14→22:05)
--- NOTE | 2021-05-08 10:43 | History & Physical-Hospitalist ---
History of Present Illness HPI/Chief Complaint This 56-year-old man presents to the emergency room via [facility] with complaints of generalized pain. He received motor none booster 2 days ago. He has had some intermittent problems with shoulder pain and chest pain over the last several days. He has been evaluated in the clinic and in the ER in [place]. No significant abnormalities were identified. Patient is a poor historian and seems somewhat confused. After obtaining a better history it sounds like his primary pain is pleuritic in nature and sternal region. He is somewhat tender to pressure over the sternum. He has a history of prescription substance abuse but according to family he is not presently using to their knowledge. Family reports that he has not seemed himself for the past couple of days. He was confronted about that last night at a birthday republican. He reported he was groggy because he took Benadryl. Much history was obtained from his daughter Christine who can be reached at [phone]. I also spoke with his son Darin whose phone number is the chart. He is afebrile with stable vital signs. 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 Dr. Cisco Pettit as his PCP. Family reports that he is normally intelligent in his conversation and that his current level of communication is not typical Upon my arrival the patient was complaining about headache was able to answer questions appropriately. He denied pain anywhere else with an otherwise negative review of systems. He stated that his headache was present prior to LP done in the emergency room last night it is generalized. Date Seen 05/08/21 Time Seen by a Provider: 07:30 Attending Physician Sara Palmer MD PCP No,Local Physician Referring Physician Date of Admission May 07, 2021 at 21:20 Home Medications & Allergies Home Medications Reviewed patient Home Medication Reconciliation performed by pharmacy medication reconciliations biosolids management technician and/or nursing. Patients Allergies have been reviewed. Allergies Allergies Coded Allergies morphine (Unverified Allergy, Severe, 03/31/21) RESP. ISSUES peanut (Unverified Allergy, Severe, 03/31/21) BREATHING ISSUES sumatriptan (Unverified Allergy, Severe, 03/31/21) BREATHING ISSUES Past Xcpxwco-Emnzcf-Tgeadl Hx Patient Social History Tobacco Use?: Yes Smoking Status: Former Smoker Smokeless Tobacco Frequency: Never a User Additional substance use comme: history of substance abuse Pt feels they are or have been: No Immunizations Up To Date Date of Influenza Vaccine: May 28, 2020 Second COVID19 Vaccination Rasheed: 3RD DOSE 05/05/21 Tetanus Booster (TDap): Unknown Date of Pneumonia Vaccine: Feb 16, 2021 Seasonal Allergies Seasonal Allergies: No Current Status Advance Directives: Unable to obtain Communicates: Unable To Communicate, Verbally Primary Language: Maltese Preferred Spoken Language: Maltese Additional sensory deficits: AMS, PATIENT only says yes or no when asked question Implanted or Applied Medical D: Port-a-cath Past Medical History Surgeries: Abdominal, Gallbladder, Orthopedic Asthma, COPD Prostate Problems Abdominal Hernia Back Injury Glaucoma Hearing Impairment: Denies Depression Blood Disorders: Yes (HYPOGAMULGLOBULINEMIA) Adverse Reaction/Blood Tranf: No Review of Systems Constitutional: see HPI Physical Exam Physical Exam Vital Signs Vital Signs - First Documented 05/07/21 05/08/21 11:22 07:45 Temp 37.0 Pulse 93 Resp 16 B/P (MAP) 157/108 (124) Pulse Ox 97 O2 Delivery Room Air FiO2 100 Capillary Refill : Less Than 3 Seconds Height, Weight, BMI Height: '" Weight: lbs. oz. kg; 25.63 BMI Method: General Appearance: Mild Distress Neck: Other (Mild stiffness range of motion guarded due to pain) Respiratory: Chest Non Tender, Lungs Clear, Normal Breath Sounds, No Accessory Muscle Use, No Respiratory Distress Cardiovascular: Regular Rate, Rhythm, No Edema, No Gallop, No JVD, No Murmur, Normal Peripheral Pulses Gastrointestinal: Normal Bowel Sounds, No Organomegaly, No Pulsatile Mass, Non Tender, Soft Extremity: Normal Capillary Refill, Normal Inspection, Normal Range of Motion, Non Tender, No Calf Tenderness, No Pedal Edema, Other (I could palpate no abnormalities noted the patient have pain in the left axilla where CT scan did reveal adenopathy with stranding no swelling was apparent.) Skin: Normal Color, Warm/Dry, Other (No evidence for cellulitis noted) Results Results/Procedures Labs Laboratory Tests 05/07/21 12:20 05/08/21 04:55 Patient resulted labs reviewed. Assessment/Plan Admission Diagnosis 1. Sepsis due to staph aureus sensitivity pending will initiate vancomycin as I was just contacted by microbiology that they are growing what appears to be staph aureus in all blood cultures. Secondary delirium appears to be improved. Will need to assume meningitis considering 150 a white cells neutrophil predominance low glucose and high protein do have an encephalitis panel pending. As there is no clear infectious source despite unremarkable cardiovascular exa mination to auscultation will obtain echocardiogram and evaluation for any evidence for endocarditis. 2. 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 Admission Status: Inpatient Order (span 2 midnights) Reason for Inpatient Admission: See admission diagnosis Critical Care Critically Ill Patient SARA PALMER MD May 08, 2021 10:42
--- NOTE | 2021-05-08 11:03 | Tele-ICU Progress Note ---
Subjective Date Seen by a Provider: May 08, 2021 Time Seen by a Provider: 10:40 Subjective/Events-last exam This virtual visit was conducted using real time audio/video. Thank you for asking us to see this patient for AMS. HPC: Recent events: Now A and O. PMH: asthma, COPD, IgG defic. SH: smoking history Y FH: Non-contributory PE: Resting comfortably.VSS HEENT: No obvious masses, adenopathy or JVD. Chest: clear to auscultation. CV: RRR S1 S2 No murmur or added sounds. Abd: Non-tender. Bowel sounds Y. : Unremarkable. Jacinto N. WAREHOUSE MATERIAL HANDLER/psychiatric: Alert and oriented, grossly intact. No obvious focal findings. Extremities: No edema. Capillary refill < 3 seconds. Skin: unremarkable. Results: Elevated WCC 14.1, BG 118. CXR unremarkable. CTC neg for PEs. A/P: Respiratory insufficiency/distress: Available chart/ vitals / labs /images reviewed. Video assessment done using teleICU camera, rest of exam as per RN. Critical Care: critically ill patient. Doing better. OK to transfer out if Hospitalist agrees. Discussed with RN Rosi. Asked RN to reach out to eICU if any questions or concerns later. Time spent with patient/coordination of care with other health professionals (mins): 10 Sepsis Event Evaluation Height, Weight, BMI Height: '" Weight: lbs. oz. kg; 25.63 BMI Method: Focused Exam Lactate Level 05/07/21 14:24: Lactic Acid Level 1.22 Exam Exam Patient acknowledged, consented, and participated in this virtual visit which was conducted using real time audio/video Vital Signs Date Time Temp Pulse Resp B/P (MAP) Pulse Ox O2 Delivery O2 Flow Rate FiO2 05/08/21 10:00 85 15 128/85 (101) 97 Room Air 05/08/21 09:00 91 10 112/67 (95) 100 Room Air 05/08/21 08:00 126 30 135/93 (107) 98 Room Air 05/08/21 07:45 Room Air 100 05/08/21 07:00 102 05/08/21 07:00 36.3 92 17 114/64 (81) 99 Room Air 05/08/21 05:55 98 24 140/88 (105) 97 Room Air 05/08/21 05:00 90 15 140/88 (105) 97 Room Air 05/08/21 04:00 36.0 05/08/21 04:00 Room Air 05/08/21 04:00 99 21 129/75 (93) 98 Room Air 05/08/21 03:00 89 22 141/79 (99) 97 Room Air 05/08/21 02:00 101 21 138/82 (100) 96 Room Air 05/08/21 00:57 90 05/08/21 00:45 85 25 114/72 (86) 94 Room Air 05/08/21 00:15 78 34 133/49 (77) 98 Room Air 05/08/21 00:00 36.9 05/07/21 23:45 113 31 108/62 (77) 100 Room Air 05/07/21 23:30 108 12 119/83 (95) 99 Room Air 05/07/21 23:15 108 13 91/38 (55) 97 Room Air 05/07/21 23:04 109 05/07/21 23:00 Room Air 05/07/21 23:00 106 22 133/77 (95) 90 Room Air 05/07/21 22:45 106 20 109/68 98 Room Air 05/07/21 22:30 37.7 05/07/21 11:22 37.0 93 16 157/108 (124) 97 Room Air I & O 05/08/21 07:00 Intake Total 1020 ml Output Total 100 ml Balance 920 ml Height & Weight Height: '" Weight: lbs. oz. kg; 25.63 BMI Method: General Appearance: Mild Distress HEENT: PERRL/EOMI, Normal ENT Inspection, Other (His membranes moist) Neck: Other (Mild stiffness range of motion guarded due to pain) Respiratory: Chest Non Tender, Lungs Clear, Normal Breath Sounds, No Accessory Muscle Use, No Respiratory Distress Cardiovascular: Regular Rate, Rhythm, No Edema, No Gallop, No JVD, No Murmur, Normal Peripheral Pulses Capillary Refill: Less Than 3 Seconds Peripheral Pulses: 1+ Left Dors-Pedis (L), 1+ Radial Pulses (R) Extremity: Normal Capillary Refill, Normal Inspection, Normal Range of Motion, Non Tender, No Calf Tenderness, No Pedal Edema, Other (I could palpate no abnormalities noted the patient have pain in the left axilla where CT scan did reveal adenopathy with stranding no swelling was apparent.) Neurologic/Psychiatric: Alert, No Motor/Sensory Deficits, mixed livestock farmer II-XII Norm as Tested, Other Skin: Normal Color, Warm/Dry, Other (No evidence for cellulitis noted) Results Lab Laboratory Tests 05/07/21 12:20 05/08/21 04:55 Assessment/Plan Assessment/Plan See free text. Critical Care: Critically Ill Patient Time spent on discussion(mins): 0 REYNALDO GODFREY MD May 08, 2021 11:03
[2021-05-08] MEDS: VANCOMYCIN 1 GM/NS 250 ML IVPB IV SCH ×2 (17:04)
[2021-05-08] MEDS: cefTRIAXone 2,000 MG/SWFI 20 ML IV PUSH IV SCH ×2 (20:59)
[2021-05-08] MEDS ORDERED: TIZA-169 PO (21:05)
[2021-05-09] MEDS: VANCOMYCIN 1 GM/NS 250 ML IVPB IV SCH ×2 (00:27)
[2021-05-09] MEDS: NS IV SCH ×3 (01:32→18:30)
[2021-05-09] MEDS: ACYCLOVIR IV SCH ×3 (01:32→18:30)
[2021-05-09] MEDS: KETOROLAC 30 MG/ML VIAL IVP PRN ×3 (03:36→22:09)
[2021-05-09] MEDS: D5 1/2 NS W/KCL 20 MEQ/L 1,000 ML IV SCH ×4 (03:39→23:52)
[2021-05-09 03:48] LABS: BASOPHILS % (AUTO) 0 % (0-10); EOSINOPHILS % (AUTO) 0 % (0-10); HEMATOCRIT 39 % (40-54); HEMOGLOBIN 12.7 g/dL (13.3-17.7); LYMPHOCYTES # (AUTO) 0.6 10^3/uL (1.0-4.0); LYMPHOCYTES % (AUTO) 7 % (12-44); MEAN CORPUSCULAR HEMOGLOBIN 29 pg (25-34); MEAN CORPUSCULAR HGB CONC 33 g/dL (32-36); MEAN CORPUSCULAR VOLUME 88 fL (80-99); MONOCYTES # (AUTO) 0.7 10^3/uL (0.0-1.0); MONOCYTES % (AUTO) 8 % (0-12); NEUTROPHILS # (AUTO) 7.5 10^3/uL (1.8-7.8); NEUTROPHILS % (AUTO) 84 % (42-75); PLATELET COUNT 165 10^3/uL (130-400)
[2021-05-09 04:00] LABS: POTASSIUM 3.5 MMOL/L (3.6-5.0)
[2021-05-09 04:01] LABS: CALCIUM 8.1 MG/DL (8.5-10.1)
[2021-05-09 04:05] LABS: PHOSPHORUS 1.7 MG/DL (2.3-4.7)
[2021-05-09 04:06] LABS: CREATININE SERUM 0.68 MG/DL (0.60-1.30)
[2021-05-09 04:08] LABS: MAGNESIUM 1.9 MG/DL (1.6-2.4)
[2021-05-09] MEDS ORDERED: TROUGH ORDER-PHARMACY XX ONE (07:30)
[2021-05-09] MEDS: ACETAMINOPHEN 500 MG TAB (TYLENOL) PO PRN ×2 (07:48→15:32)
[2021-05-09] MEDS ORDERED: KCL 20 MEQ TAB (K-DUR) PO ONE (09:00)
[2021-05-09] MEDS: VANCOMYCIN 1250 MG/NS 250 ML IVPB IV SCH ×4 (09:30→18:30)
--- NOTE | 2021-05-09 10:21 | Tele-ICU Progress Note ---
Subjective Date Seen by a Provider: May 09, 2021 Time Seen by a Provider: 08:10 Subjective/Events-last exam This virtual visit was conducted using real time audio/video. Thank you for asking us to see this patient for AMS. HPC: Recent events: Now A and O. No events overnight. PMH: asthma, COPD, IgG defic., Substance abuse. SH: smoking history Y FH: Non-contributory PE: Resting comfortably on his side.VSS HEENT: No obvious masses, adenopathy or JVD. Chest: clear to auscultation. CV: RRR S1 S2 No murmur or added sounds. Abd: Non-tender. Bowel sounds Y. : Unremarkable. Jacinto N. ELECTRIC MOTOR REPAIR SUPERVISOR/psychiatric: Alert and oriented, grossly intact. No obvious focal findings. Extremities: No edema. Capillary refill < 3 seconds. Skin: unremarkable. Results: Elevated Hb 12.7 WCC now normal. K 3.5. CXR unremarkable. CTC neg for PEs. A/P: Respiratory insufficiency/distress: resolved. AMS rapidly improving. Available chart/ vitals / labs /images reviewed. Video assessment done using teleICU camera, rest of exam as per RN. Critical Care: Doing better. OK to transfer out if Hospitalist agrees. received KCl. Cont rocephin, acyclovir, vanco. Discussed with CAREY Aranda. Asked RN to reach out to eICU if any questions or concerns later. Time spent with patient/coordination of care with other health professionals (mins): 10 Sepsis Event Evaluation Height, Weight, BMI Height: '" Weight: lbs. oz. kg; 25.63 BMI Method: Focused Exam Lactate Level 05/07/21 14:24: Lactic Acid Level 1.22 Exam Exam Patient acknowledged, consented, and participated in this virtual visit which was conducted using real time audio/video Vital Signs Date Time Temp Pulse Resp B/P (MAP) Pulse Ox O2 Delivery O2 Flow Rate FiO2 05/09/21 10:00 89 12 118/75 (89) 97 Room Air 05/09/21 09:00 90 19 97 Room Air 05/09/21 08:00 95 135/97 (106) 98 Room Air 05/09/21 07:58 Room Air 98 05/09/21 07:58 37.0 05/09/21 07:00 90 05/09/21 07:00 92 13 100 Room Air 8/22/21 06:00 96 25 129/90 (103) 95 Room Air 05/09/21 05:00 92 19 118/72 (87) 98 Room Air 05/09/21 04:00 95 19 120/75 (90) 96 Room Air 05/09/21 04:00 37.4 05/09/21 04:00 Room Air 96 05/09/21 03:00 97 25 146/94 (111) 98 Room Air 05/09/21 02:00 89 22 129/79 (96) 100 Room Air 05/09/21 01:00 90 17 142/95 (111) 98 Room Air 05/09/21 01:00 87 05/09/21 00:24 36.2 05/09/21 00:00 85 22 100 Room Air 05/09/21 00:00 Room Air 100 05/08/21 23:00 85 26 110/85 (93) 98 Room Air 05/08/21 22:00 97 23 115/83 (94) 97 Room Air 05/08/21 21:00 98 125/87 (100) 97 Room Air 05/08/21 20:00 98 124/84 (97) 94 Room Air 05/08/21 20:00 Room Air 100 05/08/21 20:00 38.3 05/08/21 19:00 100 05/08/21 19:00 97 14 134/86 (102) 96 Room Air 05/08/21 18:00 96 25 97 Room Air 05/08/21 17:00 98 29 127/116 (124) 95 Room Air 05/08/21 16:50 Room Air 100 05/08/21 16:14 37.3 05/08/21 16:00 88 23 132/109 (117) 99 Room Air 05/08/21 15:30 37.3 05/08/21 15:00 80 17 124/85 (98) 100 Room Air 05/08/21 14:00 78 13 96/66 (76) 98 Room Air 05/08/21 13:00 88 05/08/21 13:00 92 17 112/71 (84) 96 Room Air 05/08/21 12:08 Room Air 95 05/08/21 12:00 36.2 05/08/21 12:00 83 12 138/92 (107) 94 Room Air 05/08/21 11:00 89 18 133/78 (96) 99 Room Air I & O 05/09/21 07:00 Intake Total 4762.4 ml Output Total 1625 ml Balance 3137.4 ml Height & Weight Height: '" Weight: lbs. oz. kg; 25.63 BMI Method: General Appearance: Mild Distress HEENT: PERRL/EOMI, Normal ENT Inspection, Other (His membranes moist) Neck: Other (Mild stiffness range of motion guarded due to pain) Respiratory: Chest Non Tender, Lungs Clear, Normal Breath Sounds, No Accessory Muscle Use, No Respiratory Distress Cardiovascular: Regular Rate, Rhythm, No Edema, No Gallop, No JVD, No Murmur, Normal Peripheral Pulses Capillary Refill: Less Than 3 Seconds Peripheral Pulses: 1+ Left Dors-Pedis (L), 1+ Radial Pulses (R) Extremity: Normal Capillary Refill, Normal Inspection, Normal Range of Motion, Non Tender, No Calf Tenderness, No Pedal Edema, Other (I could palpate no abnormalities noted the patient have pain in the left axilla where CT scan did reveal adenopathy with stranding no swelling was apparent.) Neurologic/Psychiatric: Alert, No Motor/Sensory Deficits, end matcher II-XII Norm as Tested, Other Skin: Normal Color, Warm/Dry, Other (No evidence for cellulitis noted) Results Lab Laboratory Tests 05/07/21 12:20 05/08/21 04:55 05/09/21 03:34 Assessment/Plan Assessment/Plan See free text. Time spent on discussion(mins): 0 REYNALDO GODFREY MD May 09, 2021 10:21
[2021-05-09] MEDS ORDERED: NORTRIPTYLINE 25 MG (PAMELOR) CAP PO ONE (12:15)
[2021-05-09] MEDS: GABAPENTIN 600 MG (NEURONTIN) TAB PO SCH ×2 (12:49→20:59)
[2021-05-09] MEDS: cefTRIAXone 2,000 MG/SWFI 20 ML IV PUSH IV SCH ×2 (20:59)
[2021-05-10] MEDS: NS IV SCH ×3 (00:41→18:26)
[2021-05-10] MEDS: ACYCLOVIR IV SCH ×3 (00:41→18:26)
[2021-05-10] MEDS: VANCOMYCIN 1250 MG/NS 250 ML IVPB IV SCH ×6 (02:02→18:26)
[2021-05-10] MEDS: ACETAMINOPHEN 500 MG TAB (TYLENOL) PO PRN ×2 (03:33→11:57)
[2021-05-10] MEDS: KETOROLAC 30 MG/ML VIAL IVP PRN ×3 (04:43→21:34)
[2021-05-10 05:05] LABS: BASOPHILS % (AUTO) 0 % (0-10); EOSINOPHILS # (AUTO) 0.1 10^3/uL (0.0-0.3); EOSINOPHILS % (AUTO) 1 % (0-10); HEMATOCRIT 36 % (40-54); HEMOGLOBIN 11.7 g/dL (13.3-17.7); LYMPHOCYTES # (AUTO) 1.1 10^3/uL (1.0-4.0); LYMPHOCYTES % (AUTO) 11 % (12-44); MEAN CORPUSCULAR HEMOGLOBIN 29 pg (25-34); MEAN CORPUSCULAR HGB CONC 33 g/dL (32-36); MEAN CORPUSCULAR VOLUME 88 fL (80-99); MEAN PLATELET VOLUME 9.9 fL (9.0-12.2); MONOCYTES % (AUTO) 10 % (0-12); NEUTROPHILS # (AUTO) 8.1 10^3/uL (1.8-7.8); NEUTROPHILS % (AUTO) 78 % (42-75); PLATELET COUNT 185 10^3/uL (130-400); WHITE BLOOD COUNT 10.3 10^3/uL (4.3-11.0)
[2021-05-10 05:13] LABS: POTASSIUM 3.4 MMOL/L (3.6-5.0)
[2021-05-10 05:15] LABS: CALCIUM 7.9 MG/DL (8.5-10.1)
[2021-05-10 05:19] LABS: CREATININE SERUM 0.68 MG/DL (0.60-1.30); PHOSPHORUS 1.3 MG/DL (2.3-4.7)
[2021-05-10 05:21] LABS: MAGNESIUM 1.8 MG/DL (1.6-2.4)
[2021-05-10] MEDS: D5 1/2 NS W/KCL 20 MEQ/L 1,000 ML IV SCH ×2 (05:45→09:00)
[2021-05-10] MEDS ORDERED: KCL 20 MEQ TAB (K-DUR) PO SCH (06:00)
[2021-05-10] MEDS ORDERED: MAGNESIUM 1 GM/100 ML IVPB 100 ML IV SCH (06:00)
[2021-05-10] MEDS ORDERED: POTASSIUM CL 10MEQ/50ML IVPB 50 ML IV SCH (06:00)
[2021-05-10] MEDS ORDERED: TROUGH ORDER-PHARMACY XX NR (08:00)
[2021-05-10] MEDS ORDERED: KCL 20 MEQ TAB (K-DUR) PO ONE (08:00)
[2021-05-10 08:58] VITALS: BP 122/80
[2021-05-10] MEDS: NORTRIPTYLINE 25 MG (PAMELOR) CAP PO SCH (09:01)
[2021-05-10] MEDS: GABAPENTIN 600 MG (NEURONTIN) TAB PO SCH ×3 (09:01→19:56)
[2021-05-10] MEDS ORDERED: SENNA W/DOCUSATE (SENOKOT S) TABLET PO ONE (10:15)
[2021-05-10] MEDS: ENOXAPARIN 40 MG/0.4 ML (LOVENOX) SYR SC SCH (10:24)
[2021-05-10 11:49] VITALS: BP 139/91
[2021-05-10] MEDS ORDERED: MULT-1104 PO (13:06)
[2021-05-10] MEDS ORDERED: GABA300C PO (13:06)
[2021-05-10] MEDS ORDERED: LATA2.5D19 OU (13:06)
[2021-05-10] MEDS ORDERED: CYAN-41 PO (13:06)
[2021-05-10] MEDS ORDERED: ACET-93 PO (13:06)
[2021-05-10] MEDS ORDERED: MELO15TA39 PO (13:06)
--- NOTE | 2021-05-10 13:39 | Physical Therapy Evaluation ---
PT Evaluation-General Medical Diagnosis Admission Date May 07, 2021 at 21:20 Medical Diagnosis: sepsis Onset Date: May 07, 2021 Therapy Diagnosis Therapy Diagnosis: impaired mobility, strength, endurance, balance Precautions Precautions/Isolations: Droplet Isolation Referral Physician: Kelsey Cuello DO Reason for Referral: Evaluation/Treatment Medical History Additional Medical History Past Medical History Surgeries: Abdominal, Gallbladder, Orthopedic Asthma, COPD Prostate Problems Abdominal Hernia Back Injury Glaucoma Hearing Impairment: Denies Depression Blood Disorders: Yes (HYPOGAMULGLOBULINEMIA) Reviewed History: Yes Social History Home: Single Level Current Living Status: Other Family (lives with his elderly parents) Entry Into Home: Ramp Prior Prior Level of Function SCALE: Activities may be completed with or without assistive devices. 9-Ivilvzneuf-qohpnmb completes the activity by him/herself with no assistance from a helper. 5-Set-up or Clean-up Assistance-helper sets up or cleans up; patient completes activity. [place] assists only prior to or following the activity. 4-Supervision or Touching Assistance-helper provides verbal cues and/or touching/steadying and/or contact guard assistance as patient completes activity. Assistance may be provided throughout the activity or intermittently. 3-Partial/Moderate Assistance-helper does LESS THAN HALF the effort. [place] lifts, holds or supports trunk or limbs, but provides less than half the effort. 2-Substantial/Maximal Assistance-helper does MORE THAN HALF the effort. [place] lifts or holds trunk or limbs and provides more than half the effort. 9-Dppjjpaic-xoinax does ALL the effort. Patient does none of the effort to complete the activity. Or, the assistance of 2 or more helpers is required for the patient to complete the activity. If activity was not attempted, code reason: 7-Patient Refused. 9-Not Applicable-not attempted and the patient did not perform the activity b efore the current illness, exacerbation or injury. 10-Not Attempted due to Environmental Limitations-(lack of equipment, weather restraints, etc.). 88-Not Attempted due to Medical Conditions or Safety Concerns. Bed Mobility: 6 Transfers (B,C,W/C): 6 Gait: 6 Stairs: 6 Indoor Mobility (Ambulation): Independent Stairs: Independent PT Evaluation-Current Subjective Patient in recliner pre tx, agrees to PT, has low back pain. Pt/Family Goals to have better balance Objective Patient Orientation: Person, Place, Situation Attachments: IV ROM/Strength ROM Lower Extremities WNL Strength Lower Extremities LLE (hip flexion 3/5, knee flexion 4/5, knee extension 4/5, dorsiflexion 4/5), RLE (hip flexion 3/5, knee flexion 4/5, knee extension 4/5, dorsiflexion 4/5) Sensory Hearing: Functional Sensation Right Lower Extremit: Impaired Sensation Left Lower Extremity: Impaired Transfers Sit to Stand (QC): 3 Chair/Xtj-ef-Gpkcg Xfer(QC): 4 Min assist for sit to stand, cues for hand placement Gait Does the Patient Walk?: Yes Mode of Locomotion: Walk Anticipated Mode of Locomotion: Walk Walk 10 feet (QC): 3 Distance: 40' Gait Assistive Device: FWW Comments/Gait Description Patient ambulates about his room for about 40' with min assist for balance, he is fairly unsteady. After ambulation patient goes to the restroom and urinates and then stands at the sink and washes his hands and brushes his teeth. Balance Sitting Static: Normal Sitting Dynamic: Normal Standing Static: Poor Standing Dynamic: Poor Assessment/Needs Patient has impaired mobility, strength, endurance, balance. Patient in recliner post tx with nurse call, phone, tray, all needs met. Patient instructed to call nurse if he needs to get up since he is unsteady with standing and ambulating. Patient needs min assist to maintain balance with ambulation. Rehab Potential: Fair PT Jail Goals Telephone Sales Representative Goals PT Telephone Sales Representative Goals Time Frame: May 17, 2021 Roll Left & Right (QC): 6 Sit to Lying (QC): 6 Lying-Sitting on Side/Bed(QC): 6 Sit to Stand (QC): 4 Chair/Ysz-kv-Ovilf Xfer(QC): 4 Walk 10 feet (QC): 4 Walk 50ft with 2 Turns (QC): 4 Walk 150 ft (QC): 4 PT Plan Problem List Problem List: Activity Tolerance, Functional Strength, Safety, Balance, Gait, Transfer, Bed Mobility, ROM Treatment/Plan Treatment Plan: Continue Plan of Care Treatment Plan: Bed Mobility, Education, Functional Activity Ashley, Functional Strength, Gait, Safety, Therapeutic Exercise, Transfers Treatment Duration: May 17, 2021 Frequency: 6 times per week Estimated Hrs Per Day: .25 hour per day Patient and/or Family Agrees t: Yes Safety Risks/Education Patient Education: Gait Training, Transfer Techniques, Correct Positioning, Safety Issues Teaching Recipient: Patient Teaching Methods: Demonstration, Discussion Response to Teaching: Reinforcement Needed Discharge Recommendations Plan Patient will perform bed mobility and transfer training, balance and endurance training, functional strengthening, stair training, gait training, and education, to improve functional mobility and independence at home. Therapy Discharge Recommendati: Scheduled Assistance, Post Acute PT Time/GCodes Time In: 1315 Time Out: 1330 Total Billed Treatment Time: 15 Total Billed Treatment 1 visit CIRO Membreno' IMANI GILES PT May 10, 2021 13:39
--- NOTE | 2021-05-10 14:05 | Progress Note - Hospitalist ---
CHIDI CINTRON MED STUDENT 05/10/21 1405: Subjective HPI/CC On Admission Date Seen by Provider: May 10, 2021 Time Seen by Provider: 09:00 AMS, encephalitis. Subjective/Events-last exam This is Aleksey a 56 yo male on day 4 of his hospital stay with the chief compliant of AMS and encephalitis. He is currently on droplet isolation. Upon entering the room he was laying in bed watching TV. He was calm, cooperative, and engaged during questioning although it took him a while to respond in some instances. He complained of back pain primarily from the bed and put it at a 5/10 on the pain scale. He stated that he is having to pee multiple times throughout the day and is unsure as you why. Peripheral blood cultures were positive for Staph a. Pt denied issues with BMs, nausea or vomiting, or with his appetite. Review of Systems Genitourinary: Frequency Musculoskeletal: back pain Focused Exam Lactate Level Respiratory: Chest Non Tender, Lungs Clear, Normal Breath Sounds, No Accessory Muscle Use, No Respiratory Distress Cardiovascular: Regular Rate, Rhythm, No Edema, No Gallop, No Murmur, Normal Peripheral Pulses Skin: normal color, warm/dry Objective Exam Vital Signs Vital Signs Date Time Temp Pulse Resp B/P (MAP) Pulse Ox O2 Delivery O2 Flow Rate FiO2 05/10/21 12:30 37.2 05/10/21 11:49 99 18 139/91 (107) 95 Room Air 05/09/21 12:04 100 Capillary Refill : Less Than 3 Seconds General Appearance: No Apparent Distress, Chronically ill HEENT: PERRL/EOMI, Pharynx Normal Neck: Normal Inspection, Non Tender, Supple Respiratory: Chest Non Tender, Lungs Clear, Normal Breath Sounds, No Accessory Muscle Use, No Respiratory Distress Cardiovascular: Regular Rate, Rhythm, No Edema, No Gallop, No Murmur, Normal Peripheral Pulses Gastrointestinal: Normal Bowel Sounds, Non Tender, Soft Rectal: Deferred Extremity: Normal Inspection, Non Tender, No Calf Tenderness, No Pedal Edema Neurologic/Psychiatric: Alert, Oriented x3, No Motor/Sensory Deficits, Normal Mood/Affect Skin: Normal Color, Warm/Dry Results/Procedures Lab Laboratory Tests 05/10/21 04:50 Patient resulted labs reviewed. Assessment/Plan Assessment and Plan Assess & Plan/Chief Complaint AMS alert and oriented upon examination this AM encephalitis continue ceftriaxone, acyclovir, and vancomycin hypokalemia 3.4 on 05/10 hypophospatemia 1.3 on 05/10 back pain continue tylenol and tordol begin DVT prophylaxis lovenox add senna to medication list continue home medications encourage IS use encourage ambulation begin PT/OT mildy anemic 11.7 on 05/10 frequent urination hypertension 153/104 on 05/10 KELSEY MESA DO 05/11/21 0518: Subjective Subjective/Events-last exam Pt doing remarkably well Heplocking IV fluid IV antibiotics and Acyclovir maintained Eating and drinking well Will do PT and OT Home meds will be done soon Review of Systems General: Fatigue Neurological: Weakness Objective Exam General Appearance: No Apparent Distress, WD/WN, Chronically ill Respiratory: Lungs Clear, Normal Breath Sounds Cardiovascular: Regular Rate, Rhythm Neurologic/Psychiatric: Alert, Oriented x3 Assessment/Plan Assessment and Plan Assess & Plan/Chief Complaint Supportive care Hep-Lock IV fluid PT and OT Supervisory-Addendum Brief Verification & Attestation Participated in pt care: history, MDM, physical Personally performed: exam, history, MDM, supervision of care Care discussed with: Medical Student Procedures: n/a Results interpretation: Verified all documentation Verification and Attestation of Medical Student E/M Service A medical student performed and documented this service in my presence. I reviewed and verified all information documented by the medical student and made modifications to such information, when appropriate. I personally performed the physical exam and medical decision making. Kelsey Mesa, May 11, 2021,05:17 CHIDI CINTRON MED STUDENT May 10, 2021 14:05 KELSEY MESA DO May 11, 2021 05:18
--- NOTE | 2021-05-10 15:46 | Occupational Therapy Eval ---
OT Evaluation-General/PLF Medical Diagnosis Admission Date May 07, 2021 at 21:20 Medical Diagnosis: sepsis Onset Date: May 07, 2021 Therapy Diagnosis Therapy Diagnosis: Weakness, Decreased ADL skills Precautions Precautions/Isolations: Droplet Isolation Weight Bear Status Weight Bearing Restriction: Weight Bearing/Tolerated Referral Physician: Kelsey Cuello DO Referral Reason: Activity Tolerance, Self Care, Evaluation/Treatment, Strengthening/ROM Medical History Pertinent Medical History: COPD Additional Medical History Asthma, prostate problems, glaucoma Reviewed History: Yes Social History Home: Single Level Current Living Status: Other Family (lives with his elderly parents) Entry Into Home: [facility] ADL-Prior Level of Function SCALE: Activities may be completed with or without assistive devices. 3-Uuapfsjnhx-zumdhiw completes the activity by him/herself with no assistance from a helper. 5-Set-up or Clean-up Assistance-helper sets up or cleans up; patient completes activity. [place] assists only prior to or following the activity. 4-Supervision or Touching Assistance-helper provides verbal cues and/or touching/steadying and/or contact guard assistance as patient completes activity. Assistance may be provided throughout the activity or intermittently. 3-Partial/Moderate Assistance-helper does LESS THAN HALF the effort. [place] lifts, holds or supports trunk or limbs, but provides less than half the effort. 2-Substantial/Maximal Assistance-helper does MORE THAN HALF the effort. [place] lifts or holds trunk or limbs and provides more than half the effort. 9-Abqojjivw-eenyhn does ALL the effort. Patient does none of the effort to complete the activity. Or, the assistance of 2 or more helpers is required for the patient to complete the activity. If activity was not attempted, code reason: 7-Patient Refused. 9-Not Applicable-not attempted and the patient did not perform the activity before the current illness, exacerbation or injury. 10-Not Attempted due to Environmental Limitations-(lack of equipment, weather restraints, etc.). 88-Not Attempted due to Medical Conditions or Safety Concerns. ADL PLOF Comments Pt. states that he typically is independent with daily skills. However, due to back pain, he has difficulty getting up out of regular chair and is looking for a lift recliner. Self Care: Unknown Functional Cognition: Unknown DME/Equipment: Bath Chair, Shower Drive Self: Yes OT Current Status Subjective Pt. reports 8/10 pain in back with movement. States that he thinks he has had pain medication. Current Upper Extremity ROM WFL Upper Extremity Strength Right UE- 3+5 overall strength Left UE- 3/5 overall strength ADL-Treatment Eating (QC): 5 (Per pt., he is able to feed self after set up with no difficulty.) Lower Body Dressing (QC): 2 (Per clinical judgement at this time, pt. would require max assist to don pants. He is unable to transfer supine-sit with OT, and is unable to bring right foot up to him in bed.) On/Off Footwear (QC): 3 (Pt. is able to bring left foot up to him to doff sock and don, but unable to do this with right foot.) Other Treatments Pt. in bed. Pleasant. States that he lives with his parents and takes care of them. Pt. attempts to transfer supine-sit. Pt. transfers mcc, and then lays back down immediately, stating that it hurts too much to do this in his lower back. Pt. indicates that he is unable to transfer to EOB at this time. OT encourages pt. to practice doffing/donning slipper socks at bed level by demonstrating flexibility at bed level, but pt. only able to do this with left foot, and not right foot. Pt. demonstrates decreased strength in left UE than right UE. Reports that he is having no difficulty with eating. Ambulated to bathroom earlier with PT. Does not understand why he is unable to do so now. OT educates pt. on goals and need to participate for further strengthening and to gain independence before transfer home. Pt. verbalizes understanding. All needs met. Education OT Patient Education: Correct positioning, Modified ADL techniques, Progress toward Goal/Update tx plan, Purpose of tx/functional activities, Reviewed precautions, Rehab process, Transfer techniques Teaching Recipient: Patient Teaching Methods: Demonstration, Discussion Response to Teaching: Verbalize Understanding, Return Demonstration OT Short Term Goals Short Term Goals Time Frame: May 17, 2021 Eatin Oral hygiene: 4 Toileting hygiene: 4 Shower/bathe self: 3 Upper body dressin Lower body dressin Putting on/taking off footwear: 4 OT Usp Goals Gasoline Pump Installer Goals Time Frame: May 24, 2021 Eating (QC): 6 Oral Hygiene (QC): 6 Toileting Hygiene (QC): 6 Shower/Bathe Self (QC): 4 Upper Body Dressing (QC): 6 Lower Body Dressing (QC): 6 On/Off Footwear (QC): 6 Additional Goals: 1-Demonstrate ADL Tasks, 2-Verbalize Understanding, 3- ImproveStrength/Ashley 1=Demonstrate adherence to instructed precautions during ADL tasks. 2=Patient will verbalize/demonstrate understanding of assistive devices/m odifications for ADL. 3=Patient will improve strength/tolerance for activity to enable patient to perform ADL's. OT Education/Plan Problem List/Assessment Assessment: Decreased Activ Tolerance, Decreased UE Strength, Dependent Transfers, Impaired Bed Mobility, Impaired Funct Balance, Impaired I ADL's, Impaired Self-Care Skills Discharge Recommendations Plan/Recommendations: Continue POC Therapy Discharge Recommendati: Post Acute OT Treatment Plan/Plan of Care Treatment,Training & Education: Yes Patient would benefit from OT for education, treatment and training to promote independence in ADL's, mobility, safety and/or upper extremity function for ADL's. Plan of Care: ADL Retraining, Functional Mobility, UE Funct Exercise/Act Treatment Duration: May 24, 2021 Frequency: 5 times per week Estimated Hrs Per Day: .25 hour per day Agreement: Yes Rehab Potential: Good Time/GCodes Start Time: 14:30 Stop Time: 14:38 Total Time Billed (hr/min): 8 Billed Treatment Time 1, SHEILA GAUTAM OT May 10, 2021 15:45
[2021-05-10 16:00] VITALS: BP 134/88
[2021-05-10] MEDS: SENNA W/DOCUSATE (SENOKOT S) TABLET PO SCH (19:57)
[2021-05-10] MEDS: cefTRIAXone 2,000 MG/SWFI 20 ML IV PUSH IV SCH ×2 (19:58)
[2021-05-10 20:00] VITALS: BP 135/84
[2021-05-10 23:14] VITALS: BP 122/88
[2021-05-11] MEDS: NS IV SCH ×2 (02:06→08:17)
[2021-05-11] MEDS: ACYCLOVIR IV SCH ×2 (02:06→08:17)
[2021-05-11] MEDS: VANCOMYCIN 1250 MG/NS 250 ML IVPB IV SCH ×6 (02:07→16:55)
[2021-05-11 04:13] VITALS: BP 148/93
[2021-05-11] MEDS: ACETAMINOPHEN 500 MG TAB (TYLENOL) PO PRN (04:24)
[2021-05-11 04:38] LABS: BASOPHILS % (AUTO) 0 % (0-10); EOSINOPHILS # (AUTO) 0.1 10^3/uL (0.0-0.3); EOSINOPHILS % (AUTO) 1 % (0-10); HEMATOCRIT 37 % (40-54); HEMOGLOBIN 12.2 g/dL (13.3-17.7); LYMPHOCYTES # (AUTO) 1.6 10^3/uL (1.0-4.0); LYMPHOCYTES % (AUTO) 15 % (12-44); MEAN CORPUSCULAR HEMOGLOBIN 29 pg (25-34); MEAN CORPUSCULAR HGB CONC 33 g/dL (32-36); MEAN CORPUSCULAR VOLUME 88 fL (80-99); MEAN PLATELET VOLUME 9.3 fL (9.0-12.2); MONOCYTES % (AUTO) 10 % (0-12); NEUTROPHILS # (AUTO) 7.8 10^3/uL (1.8-7.8); NEUTROPHILS % (AUTO) 73 % (42-75); PLATELET COUNT 237 10^3/uL (130-400); WHITE BLOOD COUNT 10.7 10^3/uL (4.3-11.0)
[2021-05-11 04:49] LABS: ALBUMIN 2.7 GM/DL (3.2-4.5)
[2021-05-11 04:50] LABS: POTASSIUM 3.8 MMOL/L (3.6-5.0)
[2021-05-11 04:51] LABS: CALCIUM 8.2 MG/DL (8.5-10.1)
[2021-05-11 04:52] LABS: TOTAL PROTEIN 6.3 GM/DL (6.4-8.2)
[2021-05-11 04:54] LABS: BILIRUBIN,TOTAL 0.6 MG/DL (0.1-1.0)
[2021-05-11 04:56] LABS: CREATININE SERUM 0.65 MG/DL (0.60-1.30)
[2021-05-11 07:58] VITALS: BP 139/83
[2021-05-11] MEDS: NORTRIPTYLINE 25 MG (PAMELOR) CAP PO SCH ×2 (08:17→20:07)
[2021-05-11] MEDS: SENNA W/DOCUSATE (SENOKOT S) TABLET PO SCH ×2 (08:18→20:32)
[2021-05-11] MEDS: GABAPENTIN 600 MG (NEURONTIN) TAB PO SCH (08:18)
--- NOTE | 2021-05-11 09:42 | Physical Therapy Daily Note ---
PT Daily Note-Current Subjective Patient is up in recliner. Agrees to PT. C/o bilateral LE burning pain. RN notified. Pain Location: Right, Left Location Body Site: Thigh Pain Description: Burning Mental Status Patient Orientation: Confused Transfers SCALE: Activities may be completed with or without assistive devices. 6-Pmdebndsda-nmdigxt completes the activity by him/herself with no assistance from a helper. 5-Set-up or Clean-up Assistance-helper sets up or cleans up; patient completes activity. [place] assists only prior to or following the activity. 4-Supervision or Touching Assistance-helper provides verbal cues and/or touching/steadying and/or contact guard assistance as patient completes activity. Assistance may be provided throughout the activity or intermittently. 3-Partial/Moderate Assistance-helper does LESS THAN HALF the effort. [place] lifts, holds or supports trunk or limbs, but provides less than half the effort. 2-Substantial/Maximal Assistance-helper does MORE THAN HALF the effort. [place] lifts or holds trunk or limbs and provides more than half the effort. 9-Btdemhcer-umwkzi does ALL the effort. Patient does none of the effort to complete the activity. Or, the assistance of 2 or more helpers is required for the patient to complete the activity. If activity was not attempted, code reason: 7-Patient Refused. 9-Not Applicable-not attempted and the patient did not perform the activity before the current illness, exacerbation or injury. 10-Not Attempted due to Environmental Limitations-(lack of equipment, weather restraints, etc.). 88-Not Attempted due to Medical Conditions or Safety Concerns. Sit to Stand (QC): 3 Gait Training Does the Patient Walk?: Yes Distance: 150' in room Walk 10 feet (QC): 4 Walk 50 ft with 2 Turns(QC): 4 Walk 150 ft (QC): 4 Gait Assistive Device: FWW functional gait sequence with no deviation on this date. Exercises Seated Therapy Exercises: Ankle pumps, Long arc quads Seated Reps: 15 Assessment Patient remains up in recliner with needs met. Increase activity as tolerate by patient. PT Fpc Goals Cost Estimator Goals PT Fpc Goals Time Frame: May 17, 2021 Roll Left & Right (QC): 6 Sit to Lying (QC): 6 Lying-Sitting on Side/Bed(QC): 6 Sit to Stand (QC): 4 Chair/Qob-pn-Wnfaq Xfer(QC): 4 Walk 10 feet (QC): 4 Walk 50ft with 2 Turns (QC): 4 Walk 150 ft (QC): 4 PT Plan Treatment/Plan Treatment Plan: Continue Plan of Care Treatment Plan: Bed Mobility, Education, Functional Activity Ashley, Functional Strength, Gait, Safety, Therapeutic Exercise, Transfers Treatment Duration: May 17, 2021 Frequency: 6 times per week Estimated Hrs Per Day: .25 hour per day Patient and/or Family Agrees t: Yes Time/GCodes Time In: 835 Time Out: 847 Total Billed Treatment Time: 12 Total Billed Treatment 1 visit FA 12 min ARELY BLACK PT May 11, 2021 09:42
[2021-05-11] MEDS: ENOXAPARIN 40 MG/0.4 ML (LOVENOX) SYR SC SCH (09:46)
[2021-05-11] MEDS: KETOROLAC 30 MG/ML VIAL IVP PRN ×2 (09:47→20:28)
[2021-05-11] MEDS ORDERED: ACETAMINOPHEN 500 MG TAB (TYLENOL) PO PRN (10:45)
[2021-05-11] MEDS ORDERED: ENOXAPARIN 100 MG/1 ML (LOVENOX) SYR SC SCH ×2 (10:45→23:00)
[2021-05-11] MEDS ORDERED: RT-ALBUTEROL SULF 2.5 MG/3 ML PRE-MIX VIAL IH PRN (10:45)
[2021-05-11 10:58] VITALS: BP 108/71
[2021-05-11 11:00] VITALS: BP 108/71
--- NOTE | 2021-05-11 11:11 | Progress Note - Hospitalist ---
CHIDI CINTRON MED STUDENT 05/11/21 1111: Subjective HPI/CC On Admission Date Seen by Provider: May 11, 2021 Time Seen by Provider: 08:30 AMS, encephalitis. Subjective/Events-last exam This is Aleksey a 56 yo male on day 5 of his hospital stay with the chief complaint of AMS and encehalitis. Upon entering the room he was laying in bed. He was calm, cooperative and engaged during questioning in a talkative mood. Pt was alert and oriented but was exposing himself throughout most of the exam. He stated that he was having significant lower back pain that he put at a 7/10 on the pain scale and bilateral leg pain as well. His last BM was 2 days ago. Pt stated that 2 months ago he had a tick bite followed by an extensive rash and joint pain. Review of Systems Gastrointestinal: Constipation Musculoskeletal: back pain (lumbar), leg pain (bilateral) Focused Exam Time of Focused Exam: 08:30 Respiratory: Chest Non Tender, Lungs Clear, Normal Breath Sounds, No Accessory Muscle Use, No Respiratory Distress Cardiovascular: Regular Rate, Rhythm, No Edema, No Gallop, No Murmur, Normal Peripheral Pulses Skin: normal color, warm/dry Objective Exam Vital Signs Vital Signs Date Time Temp Pulse Resp B/P (MAP) Pulse Ox O2 Delivery O2 Flow Rate FiO2 05/11/21 11:00 36.4 94 18 108/71 (83) 98 Room Air 05/09/21 12:04 100 Capillary Refill : Less Than 3 Seconds General Appearance: No Apparent Distress, WD/WN, Chronically ill HEENT: PERRL/EOMI, Pharynx Normal Neck: Normal Inspection, Non Tender, Supple Respiratory: Chest Non Tender, Lungs Clear, Normal Breath Sounds, No Accessory Muscle Use, No Respiratory Distress Cardiovascular: Regular Rate, Rhythm, No Edema, No Gallop, No Murmur, Normal Peripheral Pulses Gastrointestinal: Normal Bowel Sounds, Non Tender, Soft Rectal: Deferred Back: Vertebral Tenderness (lumbar) Extremity: Normal Inspection, No Calf Tenderness, No Pedal Edema, Other (bilateral leg pain) Neurologic/Psychiatric: Alert, Oriented x3, Normal Mood/Affect Skin: Normal Color, Warm/Dry Results/Procedures Lab Laboratory Tests 05/11/21 04:30 Patient resulted labs reviewed. Assessment/Plan Assessment and Plan Assess & Plan/Chief Complaint AMS alert and oriented upon examination this AM encephalitis continue ceftriaxone, acyclovir, and vancomycin hypokalemia revolved with potassium supplementation- 3.8 on 05/11 hypophospatemia 1.3 on 05/10 repeat lab back pain continue tylenol and tordol increase pain medication continue DVT prophylaxis lovenox continue home medications encourage IS use encourage ambulation continue PT/OT mildy anemic 12.2 on 05/11 hypertension 148/93 on 05/11 possible MRI of lower back bilateral leg pain KELSEY MESA DO 05/12/21 0540: Subjective Subjective/Events-last exam Pt doing okay but still a little but odd behavior Back pain is significant and getting worse so will initiate MRI of the lumbar spine in case MRSA bacteremia has seeded the spine Lortab was given Couple of days since BM so will initiate Laxatives After rounds MRI was obtained and radiology informed me he had a psoas abscess and L3-L4 discitis osteomyelitis so I did speak with Dr. Menchaca spine surgeon and Hebert BAIG and they recommended interventional radiology biopsy I spoke with Dr. De Los Santos he recommended against that considering MRSA on all blood cultures I have isolated the organism and when he performs procedures like this minimal amount is obtained and the risk outweigh the benefits at this current time. I will have Dr. Zimmer remove [place] port will have PICC line placed for 6 weeks of IV Vanco will have transesophageal echocardiogram performed to evaluate for any endocarditis and vegetations due to MRSA we will hold anticoagulation for the procedures and will monitor very closely Review of Systems General: Fatigue Musculoskeletal: back pain (lumbar) Objective Exam General Appearance: No Apparent Distress, WD/WN, Chronically ill, Thin Respiratory: Lungs Clear, Normal Breath Sounds Cardiovascular: Regular Rate, Rhythm Neurologic/Psychiatric: Alert, Oriented x3 Assessment/Plan Assessment and Plan Assess & Plan/Chief Complaint L3-L4 spinal discitis with psoas abscess MRSA bacteremia [place]ong port requiring change out and placement of PICC line for IV antibiotics for 6 weeks Close follow-up by Dr. Menchaca Supervisory-Addendum Brief Verification & Attestation Participated in pt care: history, MDM, physical Personally performed: exam, history, MDM, supervision of care Care discussed with: Medical Student Procedures: n/a Results interpretation: Verified all documentation Verification and Attestation of Medical Student E/M Service A medical student performed and documented this service in my presence. I reviewed and verified all information documented by the medical student and made modifications to such information, when appropriate. I personally performed the physical exam and medical decision making. Kelsey Mesa, May 12, 2021,05:37 CHIDI CINTRON STUDENT May 11, 2021 11:11 KELSEY MESA DO May 12, 2021 05:40
[2021-05-11] MEDS ORDERED: ENOXAPARIN 60 MG/0.6 ML (LOVENOX) SYR SC ONE (11:15)
[2021-05-11] MEDS: HYDROcodone/APAP 5 MG/325 MG (LORTAB) TAB PO PRN ×2 (11:42→17:35)
[2021-05-11] MEDS ORDERED: GADOBUTROL 10 MMOL/10 ML (GADAVIST) VIAL IV ONE (12:30)
--- NOTE | 2021-05-11 13:26 | Diagnostic Imaging Report ---
PROCEDURE: MRI lumbar spine with and without contrast. TECHNIQUE: Multiplanar, multisequence MRI of the lumbar spine was performed with and without contrast. INDICATION: Low back pain. Concern for osteomyelitis/discitis. COMPARISON: 05/07/2021. FINDINGS: 5 lumbar type vertebral bodies are visualized with the last well-formed disc space designated L5-S1. No acute fracture or dislocation is seen in the lumbar spine. Endplate edema with associated enhancement is seen at the L3-L4 level. Abnormal T2 hyperintense signal is seen within the L3-L4 disc space. No focal enhancing osseous lesions are identified. The conus terminates at the L1 level. No masses are seen associated with the conus or nerve roots of the cauda equina. No epidural collections are identified. Multilevel degenerative changes are seen in the lumbar spine with disc bulges, facet hypertrophy, and buckling of the ligamentum flavum. These are greatest at the L3-L4 level with a broad-based disc bulge, facet hypertrophy with bilateral effusions, and buckling of ligamentum flavum resulting in moderate to severe spinal canal stenosis and moderate to severe right and moderate left foraminal stenosis. Multiple fluid collections are visualized within the left psoas muscle with associated surrounding enhancement. The largest collection measures 3.4 x 1.6 cm in the left psoas musculature. IMPRESSION: 1. Findings consistent with multiloculated left psoas abscess with 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 No epidural abscess is seen at this time. 2. Degenerative changes in the lumbar spine, greatest at L3-L4 with moderate to severe spinal canal stenosis and moderate to severe right and moderate left foraminal stenosis. 3. No acute fracture or dislocation in the lumbar spine. Findings were called to Dr. Kelsey Cuello at 1:15 PM on 05/11/[address] Speedy Ramey. Dictated by: Dictated on workstation # [id number]
--- NOTE | 2021-05-11 13:47 | Consultation-Cardiology ---
HPI-Cardiology Cardiology Consultation: Date of Consultation 05/11/21 Time Seen by a Provider: 14:00 Date of Admission 05-08-21 Attending Physician Kelsey Mesa DO Admitting Physician Darlin,Local Physician Consulting Physician Roxanne Mcnair MD HPI: Chief Complaint: Staph aureus (+) Mr. Preciado is a 56 yr old male admitted to [facility] on 05-07-21 with AMS. He reports for the last few days prior to his admission he had fever, chills and night sweats. He reports he came to the hospital because he was "out of it". He reports chronic back pain with multiple back surgeries in the past with the last surgery approx 20 yrs ago. He reports mild SOB. No c/o cough. No c/o CP, but reports "discomfort in between the ribs". He denies any LE swelling. No c/o n/v/d. He denies any c/o syncope or near syncope. Review of Systems-Cardiology Review of Systems Constitutional: chills, fever, tiredness Eyes: No vision change Ears/Nose/Throat: No epistaxis, No recent hearing loss Respiratory: As described under HPI Cardiovascular: As described under HPI Gastrointestinal: No constipation, No diarrhea, No nausea, No vomiting Genitourinary: No dysuria, No hematuria Skin: No rash on exposed areas, No ulcerations on exposed areas Psychiatric/Neurological: No anxiety, No depression, No focal weakness, No syncope Hematologic: No bleeding abnormalities AOS-Mmmsvc-Vojuqn Hx Patient Social History Smoking Status: Former Smoker 2nd Hand Smoke Exposure: No Have you traveled recently?: Unable to obtain Pt feels they are or have been: No Immunizations Up To Date Date of Pneumonia Vaccine: Feb 16, 2021 Date of Influenza Vaccine: May 28, 2020 Past Medical History PMH As described under Assessment. Family Medical History Family Medical History: He reports his father had an SC at age 52. Allergies and Home Medications Allergies Coded Allergies: morphine (Unverified Allergy, Severe, pt can take Lortab, 05/11/21) RESP. ISSUES peanut (Unverified Allergy, Severe, 03/31/21) BREATHING ISSUES sumatriptan (Unverified Allergy, Severe, 03/31/21) BREATHING ISSUES Home Medications Acetaminophen 500 Mg Tablet, 500-1,000 MG PO Q8H PRN for PAIN-MILD (1-4), (Reported) Last Action: Continued Albuterol Sulfate 1 Puff Puff, 2 PUFF IH Q4H PRN for SHORTNESS OF BREATH, (Reported) Last Action: Continued Atorvastatin Calcium 20 Mg Tablet, 20 MG PO DAILY, (Reported) Last Action: Continued Cyanocobalamin (Vitamin B-12) 1,000 Mcg Tablet, 1,000 MCG PO DAILY, (Reported) Last Action: Continued Fluticasone Propionate 16 Gm Boody.susp, 1-2 SPRAYS NSEACH DAILY, (Reported) Last Action: Continued Fluticasone/Umeclidin/Vilanter 1 Each Blst.w.dev, 1 EACH IH DAILY, (Reported) Last Action: Converted Gabapentin 300 Mg Capsule, 900 MG PO TID, (Reported) TAKES 3 (300MG) CAPS Last Action: Continued Latanoprost 2.5 Ml Drops, 1 DROP OU HS, (Reported) Last Action: Continued Lisinopril 5 Mg Tablet, 5 MG PO DAILY, (Reported) Last Action: Continued Meloxicam 15 Mg Tablet, 15 MG PO HS, (Reported) Last Action: Converted Montelukast Sodium 10 Mg Tablet, 10 MG PO HS, (Reported) Last Action: Continued Multivit-Min/Folic/Vit K/Lycop 1 Each Tablet, 1 EACH PO DAILY, (Reported) Last Action: Converted Nortriptyline HCl 75 Mg Capsule, 75 MG PO HS, (Reported) Last Action: Converted Paroxetine HCl 30 Mg Tablet, 60 MG PO HS, (Reported) TAKES 2 (30MG) TABS Last Action: Converted Tamsulosin HCl 0.4 Mg Cap, 0.8 MG PO HS, (Reported) TAKES 2 (0.4MG) TABS Last Action: Continued Timolol Maleate 5 Ml Drops, 1 DROP OU DAILY, (Reported) Last Action: Continued Tizanidine HCl 2 Mg Tablet, 2 MG PO BID PRN for MUSCLE SPASMS, (Reported) Last Action: Converted Warfarin Sodium 7.5 Mg Tablet, 7.5 MG PO HS, (Reported) Last Action: Continued Physical Exam-Cardiology Physical Exam Vital Signs/I&O 05/11/21 05/11/21 05/11/21 05/11/21 20:00 20:01 20:23 20:58 Temp 36.9 36.9 Pulse 87 Resp 20 B/P (MAP) 127/85 (99) Pulse Ox 96 97 94 O2 Delivery Room Air Room Air Room Air 05/12/21 05/12/21 05/12/21 05/12/21 00:16 04:15 04:40 07:36 Temp 36.6 36.6 36.4 Pulse 82 90 Resp 20 20 B/P (MAP) 132/78 (96) 126/69 (88) Pulse Ox 95 94 97 O2 Delivery Room Air Room Air Room Air 05/12/21 00:00 Intake Total 3027.4 ml Output Total 4125 ml Balance -1097.6 ml Capillary Refill : Less Than 3 Seconds Constitutional: AAO x 3, well-developed, well-nourished HEENT: PERRL, hearing is well preserved, oral hygience is good Neck: No carotid bruit; carotid pulses are 2 + bilaterally Respiratory: No accessory muscle use, No respiratory distress; chest expansion is symmetric, chest is bilaterally symmetric, lungs clear to auscultation Cardiovascular: regular rate-rhythm; No JVD; S1 and S2 Gastrointestinal: No tender; soft, audible bowel sounds Extremities: no lower extremity edema bilateral Neurologic/Psychiatric: grossly intact (moves all extremities) Skin: normal color, warm/dry; No rash on exposed areas, No ulcerations on exposed areas Data Review Labs Laboratory Tests 05/11/21 17:35: SARS-CoV-2 RNA (RT-PCR) Not Detected 05/12/21 05:05: White Blood Count 9.8, Red Blood Count 4.23L, Hemoglobin 12.2L, Hematocrit 37L, Mean Corpuscular Volume 88, Mean Corpuscular Hemoglobin 29, Mean Corpuscular Hemoglobin Concent 33, Red Cell Distribution Width 12.9, Platelet Count 296, Mean Platelet Volume 9.3, Immature Granulocyte % (Auto) 1, Neutrophils (%) (Auto) 68, Lymphocytes (%) (Auto) 20, Monocytes (%) (Auto) 9, Eosinophils (%) (Auto) 2, Basophils (%) (Auto) 0, Neutrophils # (Auto) 6.7, Lymphocytes # (Auto) 1.9, Monocytes # (Auto) 0.9, Eosinophils # (Auto) 0.2, Basophils # (Auto) 0.0, Immature Granulocyte # (Auto) 0.1, Sodium Level 134L, Potassium Level 4.0, Chloride Level 101, Carbon Dioxide Level 24, Anion Gap 9, Blood Urea Nitrogen 12, Creatinine 0.65, Estimat Glomerular Filtration Rate 126, BUN/Creatinine Ratio 18, Glucose Level 94, Calcium Level 8.4L, Corrected Calcium 9.5, Total Bilirubin 0.7, Aspartate Amino Transf (AST/SGOT) 41H, Alanine Aminotransferase (ALT/SGPT) 37, Alkaline Phosphatase 107, Total Protein 6.4, Albumin 2.6L Microbiology 05/07/21 MRSA Screen - Final, Complete 05/07/21 Gram Stain - Final, Complete 05/07/21 CSF Culture - Final, Complete No growth 05/07/21 Blood Culture - Preliminary, Resulted Staphylococcus aureus Radiology NAME: ROCHELLE PRECIADO [facility] REC#: [id number] PT STATUS: REG ER : 1965 PHYSICIAN: SAE CERON MD ADMIT DATE: 05/07/21/ER Signed Date of Exam:05/07/21 CHEST 1 VIEW, AP/PA ONLY INDICATION: Generalized chest pain. TIME OF EXAM: 1:47 p.m. COMPARISON: No prior studies are available for comparison. FINDINGS: Right-sided chest wall port has tip overlying the SVC-right atrial junction. The heart size is normal. The lungs are clear. No infiltrates are seen. There is no effusion or pneumothorax. IMPRESSION: No acute cardiopulmonary process is detected. Dictated by: Dictated on workstation # [id number] Dict: 05/07/21 1349 Trans: 05/07/21 1502 [id number] Interpreted by: KAREN FERRERA MD Electronically signed by: KAREN FERRERA MD 05/07/21 1502 NAME: ROCHELLE PRECIADO [facility] REC#: [id number] PT STATUS: REG ER : 1965 PHYSICIAN: SAE CERON MD ADMIT DATE: 05/07/21/ER Signed Date of Exam:05/07/21 CT ANGIO CHEST W PROCEDURE: CT angiography of the chest with contrast. TECHNIQUE: Multiple contiguous axial images were obtained through the chest after uneventful bolus administration of intravenous contrast. 3D reconstructed CTA MIP acquisitions were also performed. Auto Exposure Controls were utilized during the CT exam to meet ALARA standards for radiation dose reduction. INDICATION: Dyspnea. Diaphoresis. COMPARISON: None. FINDINGS: There is no evidence of acute pulmonary embolus to the segmental division of the pulmonary arteries. Evaluation of the subsegmental division is suboptimal secondary to motion artifact. Thoracic aorta is normal in course and caliber. By NASCET criteria, there is no focal significant stenosis. There is no evidence of dissection or aneurysm. Heart size is within normal limits. There is no large pericardial effusion. No pathologically enlarged or morphologically abnormal adenopathy is seen within the mediastinum or yoav. There is, however, asymmetric adenopathy in the left axilla. There is also stranding in the subcutaneous fat. Largest lymph node measures 2 x 1.8 cm. Evaluation of the lung kelsey demonstrates mild dependent atelectasis. There is no focal consolidation, large effusion, nor pneumothorax. Small micronodule may be obscured by motion artifact. No distinct pulmonary parenchymal masses are seen. Osseous structures show no acute abnormalities. No lytic or blastic osseous lesions are seen. Included portions of the upper abdomen show partially visualized hypodensity adjacent to the medial margins of the right liver superior to the expected location of the right kidney. Right kidney is not included in the [id number]-xs-waxf. IMPRESSION: 1. No acute pulmonary embolus to the segmental division of the pulmonary arteries. 2. Scattered atelectasis and image degradation secondary to motion artifact, but otherwise no acute cardiopulmonary process. 3. Left axillary adenopathy with stranding in the subcutaneous fat. Correlation with site of recent vaccine administration is recommended. 4. Partially visualized hypodensity within the posterior right upper abdominal quadrant. Conceivably, this could be on the basis of a renal cyst. Dedicated CT of the abdomen could be performed for further evaluation when clinically appropriate. Dictated by: Dictated on workstation # [id number] Dict: 05/07/21 1617 Trans: 05/07/211655 [id number] Interpreted by: CHANNING HENDERSON MD Electronically signed by: CHANNING HENDERSON MD 05/07/211655 NAME: ROCHELLE PRECIADO [facility] REC#: [id number] PT STATUS: ADM IN : 1965 PHYSICIAN: KELSEY MESA DO ADMIT DATE: 05/07/21 Signed Date of Exam:05/11/21 MRI LUMBAR SPINE W/WO CONTRAST PROCEDURE: MRI lumbar spine with and without contrast. TECHNIQUE: Multiplanar, multisequence MRI of the lumbar spine was performed with and without contrast. INDICATION: Low back pain. Concern for osteomyelitis/discitis. COMPARISON: 05/07/2021. FINDINGS: 5 lumbar type vertebral bodies are visualized with the last well-formed disc space designated L5-S1. No acute fracture or dislocation is seen in the lumbar spine. Endplate edema with associated enhancement is seen at the L3-L4 level. Abnormal T2 hyperintense signal is seen within the L3-L4 disc space. No focal enhancing osseous lesions are identified. The conus terminates at the L1 level. No masses are seen associated with the conus or nerve roots of the cauda equina. No epidural collections are identified. Multilevel degenerative changes are seen in the lumbar spine with disc bulges, facet hypertrophy, and buckling of the ligamentum flavum. These are greatest at the L3-L4 level with a broad-based disc bulge, facet hypertrophy with bilateral effusions, and buckling of ligamentum flavum resulting in moderate to severe spinal canal stenosis and moderate to severe right and moderate left foraminal stenosis. Multiple fluid collections are visualized within the left psoas muscle with associated surrounding enhancement. The largest collection measures 3.4 x 1.6 cm in the left psoas musculature. IMPRESSION: 1. Findings consistent with multiloculated left psoas abscess with 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 No epidural abscess is seen at this time. 2. Degenerative changes in the lumbar spine, greatest at L3-L4 with moderate to severe spinal canal stenosis and moderate to severe right and moderate left foraminal stenosis. 3. No acute fracture or dislocation in the lumbar spine. Findings were called to Dr. Kelsey Mesa at 1:15 PM on 05/11/[address] Erin Lopez. Dictated by: Dictated on workstation # [id number] Dict: 05/11/21 1307 Trans: 05/11/[address] [facility] [id number] Interpreted by: ERIN LOPEZ DO Electronically signed by: ERIN LOPEZ DO 05/11/21 5944 A/P-Cardiology Assessment/Admission Diagnosis AMS - improved Staph aureus - BC x 2 on 8-20-21 Multiloculated left psoas abscess with 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 No epidural abscess is seen at this time. Per MRI on 05-11-21 - management per medical services IgG hypogammaglobulinemia and receives IgG infusions monthly in [place]. Dr. Cisco Pettit as his PCP Chronic back pain - Degenerative changes in the lumbar spine, greatest at L3-L4 with moderate to severe spinal canal stenosis and moderate to severe right and moderate left foraminal stenosis. No acute fracture or dislocation in the lumbar spine. HTN HLD Tobaccoism - quit chew tobacco 11 yrs ago Ortho - 5 right knee surgeries - right hip surgery - right shoulder surger - 4 back surgeries - last surgery 20 yrs ago Discussion and Recomendations Management of staph infection per medical services Management of psoas abcess per medical/surgical services Echocardiogram to eval structure and function Advise NIKOLAI to r/o vegetation Continue current medication regimen Monitor lab closely Further recs will be based on his hospital course We would like to thank medical services for this consult SARA FRANCO May 11, 2021 13:47
--- NOTE | 2021-05-11 14:19 | Occ Therapy Progress Note ---
Therapy Progress Note OT attempted twice to see pt. this date. At first attempt, pt. had been taken to MRI. At second attempt, pt. getting PICC line placed. Will attempt back in a.m. 1410 SHEILA FOSTER OT May 11, 2021 14:19
[2021-05-11] MEDS: GABAPENTIN 300 MG (NEURONTIN) CAP PO SCH ×2 (14:42→20:27)
[2021-05-11] MEDS: FLUTICASONE NASAL SPRAY (FLONASE) 16 GM BTL NS SCH (14:42)
[2021-05-11] MEDS: UMECLIDINIUM BROMIDE (INCRUSE ELLIPTA) 7'S IH SCH (15:17)
[2021-05-11] MEDS: RT--FLUTICASONE/SALMETEROL 232-14 (AIRDUO RespiCLICK) IH SCH ×2 (15:18→20:22)
--- NOTE | 2021-05-11 15:30 | Consultation - Surgery ---
REDD WEINSTEIN 05/11/21 1530: History of Present Illness History of Present Illness Patient Consulted On(massiel/time) 05/11/21 14:30 Date Seen by Provider: May 11, 2021 Time Seen by Provider: 14:30 History of Present Illness PT reports last Monday increase of back pain . Worse with bending forward. Pain at 8/10. Can radiate into the legs. Has been having nausea vomiting and fever when in the ICU. History of inguinal hernia repair and cholecystectomy. Family history of NV in father at 51 and stroke in mother at 55. Allergies and Home Medications Allergies Coded Allergies: morphine (Unverified Allergy, Severe, pt can take Lortab, 05/11/21) RESP. ISSUES peanut (Unverified Allergy, Severe, 03/31/21) BREATHING ISSUES sumatriptan (Unverified Allergy, Severe, 03/31/21) BREATHING ISSUES Home Medications Acetaminophen 500 Mg Tablet, 500-1,000 MG PO Q8H PRN for PAIN-MILD (1-4), (Reported) Last Action: Continued Albuterol Sulfate 1 Puff Puff, 2 PUFF IH Q4H PRN for SHORTNESS OF BREATH, (Reported) Last Action: Continued Atorvastatin Calcium 20 Mg Tablet, 20 MG PO DAILY, (Reported) Last Action: Continued Cyanocobalamin (Vitamin B-12) 1,000 Mcg Tablet, 1,000 MCG PO DAILY, (Reported) Last Action: Continued Fluticasone Propionate 16 Gm [place].susp, 1-2 SPRAYS NSEACH DAILY, (Reported) Last Action: Continued Fluticasone/Umeclidin/Vilanter 1 Each Blst.w.dev, 1 EACH IH DAILY, (Reported) Last Action: Converted Gabapentin 300 Mg Capsule, 900 MG PO TID, (Reported) TAKES 3 (300MG) CAPS Last Action: Continued Latanoprost 2.5 Ml Drops, 1 DROP OU HS, (Reported) Last Action: Continued Lisinopril 5 Mg Tablet, 5 MG PO DAILY, (Reported) Last Action: Continued Meloxicam 15 Mg Tablet, 15 MG PO HS, (Reported) Last Action: Converted Montelukast Sodium 10 Mg Tablet, 10 MG PO HS, (Reported) Last Action: Continued Multivit-Min/Folic/Vit K/Lycop 1 Each Tablet, 1 EACH PO DAILY, (Reported) Last Action: Converted Nortriptyline HCl 75 Mg Capsule, 75 MG PO HS, (Reported) Last Action: Converted Paroxetine HCl 30 Mg Tablet, 60 MG PO HS, (Reported) TAKES 2 (30MG) TABS Last Action: Converted Tamsulosin HCl 0.4 Mg Cap, 0.8 MG PO HS, (Reported) TAKES 2 (0.4MG) TABS Last Action: Continued Timolol Maleate 5 Ml Drops, 1 DROP OU DAILY, (Reported) Last Action: Continued Tizanidine HCl 2 Mg Tablet, 2 MG PO BID PRN for MUSCLE SPASMS, (Reported) Last Action: Converted Warfarin Sodium 7.5 Mg Tablet, 7.5 MG PO HS, (Reported) Last Action: Continued Past Zwnnwni-Mkygjz-Jwibbn Hx Patient Social History Smoking Status: Former Smoker 2nd Hand Smoke Exposure: No Recent Hopitalizations: No Have you traveled recently?: Unable to obtain Immunizations Up To Date Date of Pneumonia Vaccine: Feb 16, 2021 Date of Influenza Vaccine: May 28, 2020 Seasonal Allergies Seasonal Allergies: No Surgeries History of Surgeries: Yes (BACK SURG X4, X5 RT KNEE SURG, RT HIP IT BAND RELEASE,RT SHOULDER SCOPE X2) Surgeries: Abdominal (inguinal hernia repair ), Gallbladder, Orthopedic Respiratory History of Respiratory Disorde: Yes Cardiovascular History of Cardiac Disorders: No Neurological History of Neurological Disord: No Genitourinary History of Genitourinary Disor: Yes Genitourinary Disorders: Prostate Problems Gastrointestinal History of Gastrointestinal Di: Yes Gastrointestinal Disorders: Abdominal Hernia Musculoskeletal History of Musculoskeletal Dis: Yes (X4 BACK SURGERIES) Endocrine History of Endocrine Disorders: No HEENT History of HEENT Disorders: Yes HEENT Disorders: Glaucoma Cancer History of Cancer: No Psychosocial History of Psychiatric Problem: Yes Integumentary History of Skin or Integumenta: No Blood Transfusions History of Blood Disorders: Yes (HYPOGAMULGLOBULINEMIA) Adverse Reaction to a Blood Tr: No Review of Systems-General Constitutional: No diaphoresis EENTM: No hoarseness, No mouth swelling Respiratory: No stridor, No wheezing Gastrointestinal: No RLQ, No LLQ Genitourinary: No frequency Musculoskeletal: back pain; No muscle twitching Skin: No change in color, No change in hair/nails Psychiatric/Neurological: Denies Emotional Problems Physical Exam-General Problems Physical Exam Vital Signs Vital Signs - First Documented 05/07/21 05/08/21 11:22 07:45 Temp 37.0 Pulse 93 Resp 16 B/P (MAP) 157/108 (124) Pulse Ox 97 O2 Delivery Room Air FiO2 100 Capillary Refill : Less Than 3 Seconds Cardiovascular: regular rate, rhythm, no JVD Gastrointestinal: non tender, soft, no organomegaly, no pulsatile mass Skin: normal color, warm/dry Data Review Labs Laboratory Tests 05/11/21 04:30: White Blood Count 10.7, Red Blood Count 4.18L, Hemoglobin 12.2L, Hematocrit 37L, Mean Corpuscular Volume 88, Mean Corpuscular Hemoglobin 29, Mean Corpuscular Hemoglobin Concent 33, Red Cell Distribution Width 13.0, Platelet Count 237, M noni Platelet Volume 9.3, Immature Granulocyte % (Auto) 1, Neutrophils (%) (Auto) 73, Lymphocytes (%) (Auto) 15, Monocytes (%) (Auto) 10, Eosinophils (%) (Auto) 1, Basophils (%) (Auto) 0, Neutrophils # (Auto) 7.8, Lymphocytes # (Auto) 1.6, Monocytes # (Auto) 1.0, Eosinophils # (Auto) 0.1, Basophils # (Auto) 0.0, Immature Granulocyte # (Auto) 0.1, Sodium Level 135, Potassium Level 3.8, Chloride Level 103, Carbon Dioxide Level 23, Anion Gap 9, Blood Urea Nitrogen 10, Creatinine 0.65, Estimat Glomerular Filtration Rate 126, BUN/Creatinine Ratio 15, Glucose Level 93, Calcium Level 8.2L, Corrected Calcium 9.2, Total B ilirubin 0.6, Aspartate Amino Transf (AST/SGOT) 37H, Alanine Aminotransferase (ALT/SGPT) 34, Alkaline Phosphatase 110, Total Protein 6.3L, Albumin 2.7L Microbiology 05/07/21 MRSA Screen - Final, Complete 05/07/21 Gram Stain - Final, Complete 05/07/21 CSF Culture - Final, Complete No growth 05/07/21 Blood Culture - Preliminary, Resulted Staphylococcus aureus Assessment/Plan Assessment/Plan Assessment/Plan Multiloculated left psoas abscess with 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 Staphyloccocus aureus on blood culture US guided drainage of [place] abscess. Port removal d/t blood culture. SWATI TREJO DO 05/11/21 1635: History of Present Illness History of Present Illness Time Seen by Provider: 16:19 History of Present Illness Surgery asked to consult regarding Bacteremia and indwelling Kike-Cath. HPI per ED: This 56-year-old man presents to the emergency room via [facility] with complaints of generalized pain. He received motor none booster 2 days ago. He has had some intermittent problems with shoulder pain and chest pain over the last several days. He has been evaluated in the clinic and in the ER in [place]. No significant abnormalities were identified. Patient is a poor historian and seems somewhat confused. After obtaining a better history it sounds like his primary pain is pleuritic in nature and sternal region. He is somewhat tender to pressure over the sternum. He has a history of prescription substance abuse but according to family he is not presently using to their kno wledge. Family reports that he has not seemed himself for the past couple of days. He was confronted about that last night at a birthday libertarian. He reported he was groggy because he took Benadryl. Much history was obtained from his daughter Christine who can be reached at [phone]. I also spoke with his son Darin whose phone number is the chart. He is afebrile with stable vital signs. He has a history of IgG hypogammaglobulinemia and receives IgG infusions monthly in [place]. Dr. Cisco Pettit as his PCP. Family reports that he is normally intelligent in his conversation and that his current level of communication is not typical. When I saw pt he was doing fine, no complaints and normal neurologic. He had blood cultures positive for MRSA. Allergies and Home Medications Allergies Coded Allergies: morphine (Unverified Allergy, Severe, pt can take Lortab, 05/11/21) RESP. ISSUES peanut (Unverified Allergy, Severe, 03/31/21) BREATHING ISSUES sumatriptan (Unverified Allergy, Severe, 03/31/21) BREATHING ISSUES Home Medications Acetaminophen 500 Mg Tablet, 500-1,000 MG PO Q8H PRN for PAIN-MILD (1-4), (Reported) Last Action: Continued Albuterol Sulfate 1 Puff Puff, 2 PUFF IH Q4H PRN for SHORTNESS OF BREATH, (Reported) Last Action: Continued Atorvastatin Calcium 20 Mg Tablet, 20 MG PO DAILY, (Reported) Last Action: Continued Cyanocobalamin (Vitamin B-12) 1,000 Mcg Tablet, 1,000 MCG PO DAILY, (Reported) Last Action: Continued Fluticasone Propionate 16 Gm Guild.susp, 1-2 SPRAYS NSEACH DAILY, (Reported) Last Action: Continued Fluticasone/Umeclidin/Vilanter 1 Each Blst.w.dev, 1 EACH IH DAILY, (Reported) Last Action: Converted Gabapentin 300 Mg Capsule, 900 MG PO TID, (Reported) TAKES 3 (300MG) CAPS Last Action: Continued Latanoprost 2.5 Ml Drops, 1 DROP OU HS, (Reported) Last Action: Continued Lisinopril 5 Mg Tablet, 5 MG PO DAILY, (Reported) Last Action: Continued Meloxicam 15 Mg Tablet, 15 MG PO HS, (Reported) Last Action: Converted Montelukast Sodium 10 Mg Tablet, 10 MG PO HS, (Reported) Last Action: Continued Multivit-Min/Folic/Vit K/Lycop 1 Each Tablet, 1 EACH PO DAILY, (Reported) Last Action: Converted Nortriptyline HCl 75 Mg Capsule, 75 MG PO HS, (Reported) Last Action: Converted Paroxetine HCl 30 Mg Tablet, 60 MG PO HS, (Reported) TAKES 2 (30MG) TABS Last Action: Converted Tamsulosin HCl 0.4 Mg Cap, 0.8 MG PO HS, (Reported) TAKES 2 (0.4MG) TABS Last Action: Continued Timolol Maleate 5 Ml Drops, 1 DROP OU DAILY, (Reported) Last Action: Continued Tizanidine HCl 2 Mg Tablet, 2 MG PO BID PRN for MUSCLE SPASMS, (Reported) Last Action: Converted Warfarin Sodium 7.5 Mg Tablet, 7.5 MG PO HS, (Reported) Last Action: Continued Patient Home Medication List Home Medication List Reviewed: Yes Past Ylhlcdh-Bksnso-Fofxsi Hx Patient Social History Smoking Status: Never a Smoker Type Used: Smokeless Tobacco (chewed for 30 yrs, quit appx 1 year ago) Alcohol Use?: No Surgeries History of Surgeries: Yes Surgeries: Abdominal (inguinal hernia repair ), Gallbladder, Orthopedic Respiratory History of Respiratory Disorde: No Cardiovascular History of Cardiac Disorders: Yes Cardiac Disorders: Hypertension Neurological History of Neurological Disord: Yes (confused when he came in) Genitourinary History of Genitourinary Disor: No Gastrointestinal History of Gastrointestinal Di: Yes Gastrointestinal Disorders: Diverticulosis, Polyps, Gall Bladder Disease Musculoskeletal History of Musculoskeletal Dis: Yes (?? abscess around psoas ms) Musculoskeletal Disorders: Degenerate Disk Disease Endocrine History of Endocrine Disorders: No HEENT History of HEENT Disorders: Yes HEENT Disorders: Cataract Hearing Impairment: Denies Psychosocial History of Psychiatric Problem: Yes Behavioral Health Disorders: Anxiety, Depression Integumentary History of Skin or Integumenta: No Family Medical History Significant Family History: Cancer (Colon - Mother) Review of Systems-General Constitutional: diaphoresis, malaise, weakness EENTM: No hoarseness, No mouth swelling Respiratory: No cough, No dyspnea on exertion, No stridor, No wheezing Cardiovascular: No chest pain, No palpitations Gastrointestinal: No RLQ, No LLQ, No nausea, No vomiting Genitourinary: No frequency, No hematuria Musculoskeletal: back pain, joint pain, muscle stiffness; No muscle twitching Skin: No change in color, No change in hair/nails Psychiatric/Neurological: Anxiety, Depressed; Denies Pre-Existing Deficit, Denies Weakness Physical Exam-General Problems Physical Exam General Appearance: WD/WN, no apparent distress Eyes: Bilateral Eye PERRL, Bilateral Eye EOMI HEENT: pharynx normal; No scleral icterus (R), No scleral icterus (L) Neck: non-tender, supple Respiratory: lungs clear, normal breath sounds, no respiratory distress, no accessory muscle use Cardiovascular: regular rate, rhythm, no JVD Gastrointestinal: non tender, soft, no organomegaly Back: decreased range of motion, vertebral tenderness Extremities: no pedal edema, no calf tenderness, normal capillary refill 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 TECHNIQUE: Multiplanar, multisequence MRI of the lumbar spine was performed with and without contrast. INDICATION: Low back pain. Concern for osteomyelitis/discitis. COMPARISON: 05/07/2021. FINDINGS: 5 lumbar type vertebral bodies are visualized with the last well-formed disc space designated L5-S1. No acute fracture or dislocation is seen in the lumbar spine. Endplate edema with associated enhancement is seen at the L3-L4 level. Abnormal T2 hyperintense signal is seen within the L3-L4 disc space. No focal enhancing osseous lesions are identified. The conus terminates at the L1 level. No masses are seen associated with the conus or nerve roots of the cauda equina. No epidural collections are identified. Multilevel degenerative changes are seen in the lumbar spine with disc bulges, facet hypertrophy, and buckling of the ligamentum flavum. These are greatest at the L3-L4 level with a broad-based disc bulge, facet hypertrophy with bilateral effusions, and buckling of ligamentum flavum resulting in moderate to severe spinal canal stenosis and moderate to severe right and moderate left foraminal stenosis. Multiple fluid collections are visualized within the left psoas muscle with associated surrounding enhancement. The largest collection measures 3.4 x 1.6 cm in the left psoas musculature. IMPRESSION: 1. Findings consistent with multiloculated left psoas abscess with 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 No epidural abscess is seen at this time. 2. Degenerative changes in the lumbar spine, greatest at L3-L4 with moderate to severe spinal canal stenosis and moderate to severe right and moderate left foraminal stenosis. 3. No acute fracture or dislocation in the lumbar spine. Findings were called to Dr. Kelsey Cuello at 1:15 PM on 05/11/[address] Erin Ramey. Dictated by: Dictated on workstation # [id number] Dict: 05/11/21 1307 Trans: 05/11/21 1329 CV [id number] Interpreted by: ERIN RAMEY DO Electronically signed by: ERIN RAMEY DO 05/11/21 1329 Assessment/Plan Assessment/Plan Assessment/Plan Bacteremia Multiloculated Left Psoas abscess HTN Hx of IgG hypogammaglobulinemia Pt has kike-cath for IgG transfusions, but now it is most likely seeded with MRSA and IV ABX will not get rid of the bacteria. Pt will need port removed, wait 2-3 weeks with negative blood cultures and then can replace the port. I explained this to pt and we went over risks and complications not limited to pain, bleeding, infection and worst case scenario loss of catheter. Kike-cath has not been in very long, so should not be a problem. He had it placed in [place], but I can put it in opposite side once he is ready for it. All questions answered to his satisfaction. Will make NPO after midnight and get consent. Coumadin has been stopped; INR 1.3 Supervisory-Addendum Brief Verification & Attestation Participated in pt care: history, MDM, physical Personally performed: exam, history, MDM, supervision of care Care discussed with: Medical Student Procedures: n/a Verification and Attestation of Medical Student E/M Service A medical student performed and documented this service. I then reviewed and verified all information documented by the medical student and made modifications to such information, when appropriate. I personally performed a physical exam, medical decision making and then discussed any differences between the notes and made revisions as necessary to create one note. Swati Trejo , 05/11/21 , 16:46 REDD WEINSTEIN May 11, 2021 15:30 SWATI TREJO DO May 11, 2021 16:35
[2021-05-11 15:45] VITALS: BP 137/81
--- NOTE | 2021-05-11 16:12 | Consultation-Cardiology ---
HPI-Cardiology Cardiology Consultation: Date of Consultation 05/11/21 Time Seen by a Provider: 15:30 Date of Admission Attending Physician Kelsey Cuello DO Admitting Physician No,Local Physician Consulting Physician SHAGUFTA DUEÑAS MD, MA, FACP, FACC, [facility] [place] CCDS Physician requesting consult: Dr Cuello HPI: Chief Complaint: Reason for Cardiology consultation: Staph aureus (+) HPI Mr. Preciado is a 56 yr old male admitted to [facility] on 05-07-21 with AMS. He reports for the last few days prior to his admission he had fever, chills and night sweats. He reports he came to the hospital because he was "out of it". He repo rts chronic back pain with multiple back surgeries in the past with the last surgery approx 20 yrs ago. He reports mild SOB. No c/o cough. No c/o CP, but reports "discomfort in between the ribs". He denies any LE swelling. No c/o n/v/d. He denies any c/o syncope or near syncope. Review of Systems-Cardiology Review of Systems Constitutional: chills, fever, tiredness Eyes: No vision change Ears/Nose/Throat: No epistaxis, No recent hearing loss Respiratory: As described under HPI Cardiovascular: As described under HPI Gastrointestinal: No constipation, No diarrhea, No nausea, No vomiting Genitourinary: No dysuria, No hematuria Skin: No rash on exposed areas, No ulcerations on exposed areas Psychiatric/Neurological: No anxiety, No depression, No focal weakness, No s yncope Hematologic: No bleeding abnormalities IQU-Ttmjlf-Fwpate Hx Patient Social History Smoking Status: Former Smoker 2nd Hand Smoke Exposure: No Have you traveled recently?: Unable to obtain Pt feels they are or have been: No Immunizations Up To Date Date of Pneumonia Vaccine: Feb 16, 2021 Date of Influenza Vaccine: May 28, 2020 Past Medical History PMH As described under Assessment. Family Medical History Family Medical History: He reports his father had an PR at age 52. Allergies and Home Medications Allergies Coded Allergies: morphine (Unverified Allergy, Severe, pt can take Lortab, 05/11/21) RESP. ISSUES peanut (Unverified Allergy, Severe, 03/31/21) BREATHING ISSUES sumatriptan (Unverified Allergy, Severe, 03/31/21) BREATHING ISSUES Home Medications Acetaminophen 500 Mg Tablet, 500-1,000 MG PO Q8H PRN for PAIN-MILD (1-4), (Reported) Last Action: Continued Albuterol Sulfate 1 Puff Puff, 2 PUFF IH Q4H PRN for SHORTNESS OF BREATH, (Reported) Last Action: Continued Atorvastatin Calcium 20 Mg Tablet, 20 MG PO DAILY, (Reported) Last Action: Continued Cyanocobalamin (Vitamin B-12) 1,000 Mcg Tablet, 1,000 MCG PO DAILY, (Reported) Last Action: Continued Fluticasone Propionate 16 Gm [place].susp, 1-2 SPRAYS NSEACH DAILY, (Reported) Last Action: Continued Fluticasone/Umeclidin/Vilanter 1 Each Blst.w.dev, 1 EACH IH DAILY, (Reported) Last Action: Converted Gabapentin 300 Mg Capsule, 900 MG PO TID, (Reported) TAKES 3 (300MG) CAPS Last Action: Continued Latanoprost 2.5 Ml Drops, 1 DROP OU HS, (Reported) Last Action: Continued Lisinopril 5 Mg Tablet, 5 MG PO DAILY, (Reported) Last Action: Continued Meloxicam 15 Mg Tablet, 15 MG PO HS, (Reported) Last Action: Converted Montelukast Sodium 10 Mg Tablet, 10 MG PO HS, (Reported) Last Action: Continued Multivit-Min/Folic/Vit K/Lycop 1 Each Tablet, 1 EACH PO DAILY, (Reported) Last Action: Converted Nortriptyline HCl 75 Mg Capsule, 75 MG PO HS, (Reported) Last Action: Converted Paroxetine HCl 30 Mg Tablet, 60 MG PO HS, (Reported) TAKES 2 (30MG) TABS Last Action: Converted Tamsulosin HCl 0.4 Mg Cap, 0.8 MG PO HS, (Reported) TAKES 2 (0.4MG) TABS Last Action: Continued Timolol Maleate 5 Ml Drops, 1 DROP OU DAILY, (Reported) Last Action: Continued Tizanidine HCl 2 Mg Tablet, 2 MG PO BID PRN for MUSCLE SPASMS, (Reported) Last Action: Converted Warfarin Sodium 7.5 Mg Tablet, 7.5 MG PO HS, (Reported) Last Action: Continued Patient Home Medication List Home Medication List Reviewed: Yes Physical Exam-Cardiology Physical Exam Vital Signs/I&O 05/11/21 05/11/21 05/11/21 05/11/21 04:13 04:17 04:24 07:58 Temp 38.8 38.8 38.8 36.1 Pulse 99 80 Resp 18 18 B/P (MAP) 148/93 (111) 139/83 (101) Pulse Ox 98 96 O2 Delivery Room Air Room Air 05/11/21 05/11/21 05/11/21 08:38 11:00 15:45 Temp 36.4 36.3 Pulse 94 92 Resp 18 18 B/P (MAP) 108/71 (83) 137/81 (99) Pulse Ox 96 98 95 O2 Delivery Room Air Room Air Room Air 05/11/21 00:00 Intake Total 3479.9 ml Output Total 6300 ml Balance -2820.1 ml Capillary Refill : Less Than 3 Seconds Constitutional: AAO x 3, well-developed, well-nourished HEENT: PERRL, hearing is well preserved, oral hygience is good Neck: No carotid bruit; carotid pulses are 2 + bilaterally Respiratory: No accessory muscle use, No respiratory distress; chest expansion is symmetric, chest is bilaterally symmetric, lungs clear to auscultation Cardiovascular: regular rate-rhythm; No JVD; S1 and S2 Gastrointestinal: No tender; soft, audible bowel sounds Extremities: no lower extremity edema bilateral Neurologic/Psychiatric: grossly intact (moves all extremities) Skin: normal color, warm/dry; No rash on exposed areas, No ulcerations on exposed areas Data Review Labs Laboratory Tests 05/11/21 04:30: White Blood Count 10.7, Red Blood Count 4.18L, Hemoglobin 12.2L, Hematocrit 37L, Mean Corpuscular Volume 88, Mean Corpuscular Hemoglobin 29, Mean Corpuscular Hemoglobin Concent 33, Red Cell Distribution Width 13.0, Platelet Count 237, Mean Platelet Volume 9.3, Immature Granulocyte % (Auto) 1, Neutrophils (%) (Auto) 73, Lymphocytes (%) (Auto) 15, Monocytes (%) (Auto) 10, Eosinophils (%) (Auto) 1, Basophils (%) (Auto) 0, Neutrophils # (Auto) 7.8, Lymphocytes # (Auto) 1.6, Monocytes # (Auto) 1.0, Eosinophils # (Auto) 0.1, Basophils # (Auto) 0.0, Immature Granulocyte # (Auto) 0.1, Sodium Level 135, Potassium Level 3.8, Chloride Level 103, Carbon Dioxide Level 23, Anion Gap 9, Blood Urea Nitrogen 10, Creatinine 0.65, Estimat Glomerular Filtration Rate 126, BUN/Creatinine R atio 15, Glucose Level 93, Calcium Level 8.2L, Corrected Calcium 9.2, Total Tyree irubin 0.6, Aspartate Amino Transf (AST/SGOT) 37H, Alanine Aminotransferase (AL T/SGPT) 34, Alkaline Phosphatase 110, Total Protein 6.3L, Albumin 2.7L Microbiology 05/07/21 MRSA Screen - Final, Complete 05/07/21 Gram Stain - Final, Complete 05/07/21 CSF Culture - Final, Complete No growth 05/07/21 Blood Culture - Preliminary, Resulted Staphylococcus aureus Laboratory Tests 05/10/21 04:50 05/11/21 04:30 A/P-Cardiology Assessment/Admission Diagnosis AMS - improved Staph aureus - BC x 2 on 05-07-21 Multiloculated left psoas abscess with 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 No epidural abscess is seen at this time. Per MRI on 05-11-21 - management per medical services IgG hypogammaglobulinemia and receives IgG infusions monthly in [place]. Dr. Cisco Pettit as his PCP Chronic back pain - Degenerative changes in the lumbar spine, greatest at L3-L4 with moderate to severe spinal canal stenosis and moderate to severe right and moderate left foraminal stenosis. No acute fracture or dislocation in the lumbar spine. HTN HLD Mild cardiomyopathy - Echo of 05/07/21: LVEF 40-45%, mild global hypokinesis H/o anticoag for unknown reasons, Dr Cuello is managing currently Tobaccoism - quit chew tobacco 11 yrs ago Ortho - 5 right knee surgeries - right hip surgery - right shoulder surger - 4 back surgeries - last surgery 20 yrs ago Discussion and Recomendations Add beta-giorgi because of mild cardiomyopathy and somewhat elevated heart rate (90s at rest) NIKOLAI to eval for SBE Management of staph infection per medical services Management of psoas abcess per medical/surgical services I discussed his case with Dr Cuello. Reason for anticoag is unclear. Dr Cuello is currently holding anticoag in anticipation of NIKOLAI and, possibly, surgery Monitor lab closely Further recs will be based on his hospital course SHAGUFTA DUEÑAS MD FACP FAC CCDS May 11, 2021 16:12
[2021-05-11 20:01] VITALS: BP 127/85
[2021-05-11] MEDS: MONTELUKAST 10 MG (SINGULAIR) TAB PO SCH (20:27)
[2021-05-11] MEDS: MELOXICAM 7.5 MG (MOBIC) TABLET PO SCH (20:27)
[2021-05-11] MEDS: TAMSULOSIN 0.4 MG (FLOMAX) CAP PO SCH (20:27)
[2021-05-11] MEDS: PARoxetine 20 MG (PAXIL) TAB PO SCH (20:32)
[2021-05-11] MEDS: LATANOPROST 0.005% (XALATAN) OPHTH SOLN 2.5 ML OU SCH (20:35)
[2021-05-11] MEDS ORDERED: warFARin 7.5 MG (COUMADIN) TAB PO SCH (21:00)
[2021-05-12] VITALS (11 sets, daily range): BP systolic 97–145; BP diastolic 52–90
[2021-05-12] MEDS: VANCOMYCIN 1250 MG/NS 250 ML IVPB IV SCH ×6 (01:24→17:44)
[2021-05-12] MEDS: KETOROLAC 30 MG/ML VIAL IVP PRN ×2 (03:45→13:54)
[2021-05-12 05:13] LABS: BASOPHILS % (AUTO) 0 % (0-10); EOSINOPHILS # (AUTO) 0.2 10^3/uL (0.0-0.3); EOSINOPHILS % (AUTO) 2 % (0-10); HEMATOCRIT 37 % (40-54); HEMOGLOBIN 12.2 g/dL (13.3-17.7); LYMPHOCYTES # (AUTO) 1.9 10^3/uL (1.0-4.0); LYMPHOCYTES % (AUTO) 20 % (12-44); MEAN CORPUSCULAR HEMOGLOBIN 29 pg (25-34); MEAN CORPUSCULAR HGB CONC 33 g/dL (32-36); MEAN CORPUSCULAR VOLUME 88 fL (80-99); MEAN PLATELET VOLUME 9.3 fL (9.0-12.2); MONOCYTES # (AUTO) 0.9 10^3/uL (0.0-1.0); MONOCYTES % (AUTO) 9 % (0-12); NEUTROPHILS # (AUTO) 6.7 10^3/uL (1.8-7.8); NEUTROPHILS % (AUTO) 68 % (42-75); PLATELET COUNT 296 10^3/uL (130-400); WHITE BLOOD COUNT 9.8 10^3/uL (4.3-11.0)
[2021-05-12 05:24] LABS: ALBUMIN 2.6 GM/DL (3.2-4.5)
[2021-05-12 05:26] LABS: CALCIUM 8.4 MG/DL (8.5-10.1)
[2021-05-12 05:27] LABS: TOTAL PROTEIN 6.4 GM/DL (6.4-8.2)
[2021-05-12 05:28] LABS: BILIRUBIN,TOTAL 0.7 MG/DL (0.1-1.0)
[2021-05-12 05:30] LABS: CREATININE SERUM 0.65 MG/DL (0.60-1.30)
[2021-05-12] MEDS: MULTIVIT W/MINERALS TAB (THERAGRAN M) PO SCH (05:46)
[2021-05-12] MEDS: UMECLIDINIUM BROMIDE (INCRUSE ELLIPTA) 7'S IH SCH (07:35)
[2021-05-12] MEDS: RT--FLUTICASONE/SALMETEROL 232-14 (AIRDUO RespiCLICK) IH SCH ×2 (07:35→19:03)
--- NOTE | 2021-05-12 07:54 | Progress Note - Surgery ---
ZENAIDAPALMER X MED STUDENT 05/12/21 0754: Subjective Date Seen by a Provider: May 12, 2021 Time Seen by a Provider: 07:20 Subjective/Events-last exam hospital course: 56M w/ PMH of COPD, asthma, prostate problems, abdominal hernia, back injury w/multiple surgeries, IgG hypogammaglobuliemia, depression, substance use disorder. to ED complaints of generalized pain in shoulder and chest and AMS. U/A clean catch. toxicology negative. Covid negative. received booster two days prior. CSF culture no growth. Nasal swab and blood culture MRSA positive, on droplet precautions. CXR no cardiopulm findings. chest/thorax CTA atelectasis, adenopathy. Lumbar x-ray degenerative spine changes and possible ileus. lumbar MRI multiloculated left psoas abscess. head CT mucosal thickening in sphenoid sinuses and ethmoid air cells. Picc line yesterday. Port removal today. Today: The patient is resting comfortably in bed and states he feels slightly better today. He complains of muscle weakness in his hands, lateral leg pain from his thigh to his toes, and low back pain. He states he had a fever yesterday that resolved with tylenol. He has difficulty urinating and is normally on flomax at home. He has difficulty initiating and stopping stream and painful urination. This is a chronic condition. His last BM was 3d ago. He is ambulating with a walker. Review of Systems General: No Chills, No Malaise HEENT: No Head Aches Pulmonary: No Dyspnea, No Cough Cardiovascular: No: Chest Pain Gastrointestinal: No: Nausea, Vomiting, Abdominal Pain Genitourinary: Dysuria, Frequency Musculoskeletal: back pain (lumbar) Neurological: Weakness Focused Exam Time of Focused Exam: 08:30 Objective Exam Vital Signs Date Time Temp Pulse Resp B/P (MAP) Pulse Ox O2 Delivery O2 Flow Rate FiO2 05/12/21 07:36 97 Room Air 05/12/21 04:40 36.4 90 20 126/69 (88) 94 Room Air 05/12/21 04:15 36.6 05/12/21 00:16 36.6 82 20 132/78 (96) 95 Room Air 05/11/21 20:58 36.9 05/11/21 20:23 94 Room Air 05/11/21 20:01 36.9 87 20 127/85 (99) 97 Room Air 05/11/21 20:00 96 Room Air 05/11/21 15:45 36.3 92 18 137/81 (99) 95 Room Air 05/11/21 11:00 36.4 94 18 108/71 (83) 98 Room Air 05/11/21 08:38 96 Room Air 05/11/21 07:58 36.1 80 18 139/83 (101) 96 Room Air I & O 05/12/21 07:00 Intake Total 3027.4 ml Output Total 4500 ml Balance -1472.6 ml Capillary Refill : Less Than 3 Seconds General Appearance: No Apparent Distress, WD/WN, Chronically ill, Thin HEENT: PERRL/EOMI, Pharynx Normal Neck: Normal Inspection, Non Tender Respiratory: Lungs Clear, Normal Breath Sounds Cardiovascular: Regular Rate, Rhythm Peripheral Pulses: 1+ Left Dors-Pedis (L), 1+ Radial Pulses (R) Gastrointestinal: soft, no organomegaly, tenderness (RLQ) Extremity: No Calf Tenderness, No Pedal Edema, Other (4/5 strength all extremit ies) Neurologic/Psychiatric: Alert, Oriented x3, Motor Weakness Skin: Normal Color, Warm/Dry Results Lab Laboratory Tests 05/11/21 17:35: SARS-CoV-2 RNA (RT-PCR) Not Detected 05/12/21 05:05: White Blood Count 9.8, Red Blood Count 4.23L, Hemoglobin 12.2L, Hematocrit 37L, Mean Corpuscular Volume 88, Mean Corpuscular Hemoglobin 29, Mean Corpuscular Hemoglobin Concent 33, Red Cell Distribution Width 12.9, Platelet Count 296, Mean Platelet Volume 9.3, Immature Granulocyte % (Auto) 1, Neutrophils (%) (Auto) 68, Lymphocytes (%) (Auto) 20, Monocytes (%) (Auto) 9, Eosinophils (%) (Auto) 2, Basophils (%) (Auto) 0, Neutrophils # (Auto) 6.7, Lymphocytes # (Auto) 1.9, Monocytes # (Auto) 0.9, Eosinophils # (Auto) 0.2, Basophils # (Auto) 0.0, Immature Granulocyte # (Auto) 0.1, Sodium Level 134L, Potassium Level 4.0, Chloride Level 101, Carbon Dioxide Level 24, Anion Gap 9, Blood Urea Nitrogen 12, Creatinine 0.65, Estimat Glomerular Filtration Rate 126, BUN/Creatinine Rati o 18, Glucose Level 94, Calcium Level 8.4L, Corrected Calcium 9.5, Total Bilirubin 0.7, Aspartate Amino Transf (AST/SGOT) 41H, Alanine Aminotransferase (ALT/SGPT) 37, Alkaline Phosphatase 107, Total Protein 6.4, Albumin 2.6L Microbiology 05/07/21 MRSA Screen - Final, Complete 05/07/21 Gram Stain - Final, Complete 05/07/21 CSF Culture - Final, Complete No growth 05/07/21 Blood Culture - Preliminary, Resulted Staphylococcus aureus Assessment/Plan Assessment/Plan Assessment/Plan AMS * pt appears alert and oriented today * tylenol for fever as needed * U/A - protein, ketones, RBC * continue PT/OT Bacteremia * Surgery consulted * concerns of MRSA seeding to port * NPO since midnight * PT 16.8, INR 1.3, aPTT 138, d-dimer 1.58 * port removal today * continue IV antibiotics * reassess blood cultures in 2-3 weeks, once negative, can replace port * picc line placed yesterday Multiloculated Left Psoas abscess hypokalemia/hypophostemia * resolved anemia * mild. stable at 12.2 today back pain Hx of HTN/IgG hypogammaglobulinemia/neuropathy/prostate problem * continue home medications as appropriate DVT ppx: lovenox diet: NPO SWATI LERNER DO 05/12/21 1236: Subjective Time Seen by a Provider: 12:29 Subjective/Events-last exam Pt seen during NIKOLAI, sedated. Objective Exam Respiratory: Lungs Clear, Normal Breath Sounds Cardiovascular: Regular Rate, Rhythm Gastrointestinal: soft, no organomegaly, tenderness (RLQ) Skin: Other (port site looks good no erythema) Assessment/Plan Assessment/Plan Assessment/Plan Bacteremia Multiloculated Left Psoas abscess HTN Hx of IgG hypogammaglobulinemia Pt has kike-cath for IgG transfusions, but now it is most likely seeded with MRSA and IV ABX will not get rid of the bacteria. Plan port removal today. Supervisory-Addendum Brief Verification & Attestation Participated in pt care: history, MDM, physical Personally performed: exam, history, MDM, supervision of care Care discussed with: Medical Student Procedures: n/a Verification and Attestation of Medical Student E/M Service A medical student performed and documented this service. I then reviewed and verified all information documented by the medical student and made modifications to such information, when appropriate. I personally performed a physical exam, medical decision making and then discussed any differences between the notes and made revisions as necessary to create one note. Swati Lerner , 05/12/21 , 12:36 PALMER ESTEVEZ MED STUDENT May 12, 2021 07:54 SWATI LERNER DO May 12, 2021 12:36
[2021-05-12] MEDS: FLUTICASONE NASAL SPRAY (FLONASE) 16 GM BTL NS SCH (08:07)
[2021-05-12] MEDS: TIMOLOL MALEATE 0.5% 5 ML (TIMOPTIC) BTL OU SCH (08:08)
[2021-05-12] MEDS: lisINopril 5 MG (PRINIVIL) TABLET PO SCH (08:12)
[2021-05-12] MEDS: SENNA W/DOCUSATE (SENOKOT S) TABLET PO SCH ×2 (09:00→21:39)
[2021-05-12] MEDS: CYANOCOBALAMIN 1,000 MCG (VITAMIN B-12) TABLET PO SCH (09:00)
[2021-05-12] MEDS: GABAPENTIN 300 MG (NEURONTIN) CAP PO SCH ×3 (09:00→21:39)
--- NOTE | 2021-05-12 09:00 | Physical Therapy Daily Note ---
PT Daily Note-Current Subjective Pt in bed upon arrival w nurse in room. Pt reluctant to tx d/t pain. Pt agreed to ex in bed. Pt stated pain in Lower Back 8/10. Pain Numeric Pain Scale: 8 Location: Lower Location Body Site: Back Pain Description: Sharp Mental Status Patient Orientation: Person, Place, Time, Situation Transfers SCALE: Activities may be completed with or without assistive devices. 0-Yzcfrxthfo-xyrvnla completes the activity by him/herself with no assistance from a helper. 5-Set-up or Clean-up Assistance-helper sets up or cleans up; patient completes activity. [place] assists only prior to or following the activity. 4-Supervision or Touching Assistance-helper provides verbal cues and/or touching/steadying and/or contact guard assistance as patient completes activity. Assistance may be provided throughout the activity or intermittently. 3-Partial/Moderate Assistance-helper does LESS THAN HALF the effort. [place] lifts, holds or supports trunk or limbs, but provides less than half the effort. 2-Substantial/Maximal Assistance-helper does MORE THAN HALF the effort. [place] lifts or holds trunk or limbs and provides more than half the effort. 7-Hhtfmxdld-rzgcqy does ALL the effort. Patient does none of the effort to complete the activity. Or, the assistance of 2 or more helpers is required for the patient to complete the activity. If activity was not attempted, code reason: 7-Patient Refused. 9-Not Applicable-not attempted and the patient did not perform the activity before the current illness, exacerbation or injury. 10-Not Attempted due to Environmental Limitations-(lack of equipment, weather restraints, etc.). 88-Not Attempted due to Medical Conditions or Safety Concerns. Exercises Supine Ex: Bridging, Ankle pumps, Quad Set, Heel Slides, Short Arc Quads, Straight leg raise, Hip abd/add Supine Reps: 10 Treatments Pt performed supine ex in bed x10 reps. Prior to ex pt attempted to slide up in bed, but unable to do so d/t pain. PT and nursing helped pt up in bed with pt A. Assessment Current Status: Fair Progress Pt limited by pain and became easily fatigued. PT Doctor Of Nursing Practice Goals Doctor Of Nursing Practice Goals PT Prison Goals Time Frame: May 17, 2021 Roll Left & Right (QC): 6 Sit to Lying (QC): 6 Lying-Sitting on Side/Bed(QC): 6 Sit to Stand (QC): 4 Chair/Smu-zf-Oqzzw Xfer(QC): 4 Walk 10 feet (QC): 4 Walk 50ft with 2 Turns (QC): 4 Walk 150 ft (QC): 4 PT Plan Problem List Problem List: Activity Tolerance Treatment/Plan Treatment Plan: Continue Plan of Care Treatment Plan: Bed Mobility, Education, Functional Activity Ashley, Functional Strength, Gait, Safety, Therapeutic Exercise, Transfers Treatment Duration: May 17, 2021 Frequency: 6 times per week Estimated Hrs Per Day: .25 hour per day Patient and/or Family Agrees t: Yes Safety Risks/Education Patient Education: Correct Positioning Teaching Recipient: Patient Teaching Methods: Demonstration Response to Teaching: Return Demonstration Time/GCodes Time In: 812 Time Out: 826 Total Billed Treatment Time: 14 Total Billed Treatment 1, INDIO Baldwin REAL ESTATE OFFICER May 12, 2021 09:00
--- NOTE | 2021-05-12 10:01 | Progress Note - Cardiology ---
Cardiology SOAP Progress Note Objective: I&O/Vital Signs 05/12/21 05/12/21 05/12/21 05/12/21 00:16 04:15 04:40 07:36 Temp 36.6 36.6 36.4 Pulse 82 90 Resp 20 20 B/P (MAP) 132/78 (96) 126/69 (88) Pulse Ox 95 94 97 O2 Delivery Room Air Room Air Room Air 05/12/21 05/12/21 08:00 08:28 Temp 37.1 Pulse 86 Resp 20 B/P (MAP) 139/90 (106) Pulse Ox 98 98 O2 Delivery Room Air Room Air 05/12/21 00:00 Intake Total 3027.4 ml Output Total 4125 ml Balance -1097.6 ml Constitutional: AAO x 3, well-developed, well-nourished Respiratory: No accessory muscle use, No respiratory distress; chest expansion is symmetric, chest is bilaterally symmetric, lungs clear to auscultation Cardiovascular: regular rate-rhythm; No JVD; S1 and S2 Gastrointestional: No tender; soft, audible bowel sounds Extremities: no lower extremity edema bilateral Neurologic/Psychiatric: grossly intact (moves all extremities) Skin: normal color, warm/dry; No rash on exposed areas, No ulcerations on exposed areas Results/Procedures: Labs Laboratory Tests 05/11/21 17:35: SARS-CoV-2 RNA (RT-PCR) Not Detected 05/12/21 05:05: White Blood Count 9.8, Red Blood Count 4.23L, Hemoglobin 12.2L, Hematocrit 37L, Mean Corpuscular Volume 88, Mean Corpuscular Hemoglobin 29, Mean Corpuscular Hemoglobin Concent 33, Red Cell Distribution Width 12.9, Platelet Count 296, Mean Platelet Volume 9.3, Immature Granulocyte % (Auto) 1, Neutrophils (%) (Auto) 68, Lymphocytes (%) (Auto) 20, Monocytes (%) (Auto) 9, Eosinophils (%) (Auto) 2, Basophils (%) (Auto) 0, Neutrophils # (Auto) 6.7, Lymphocytes # (Auto) 1.9, Monocytes # (Auto) 0.9, Eosinophils # (Auto) 0.2, Basophils # (Auto) 0.0, Immature Granulocyte # (Auto) 0.1, Sodium Level 134L, Potassium Level 4.0, Chloride Level 101, Carbon Dioxide Level 24, Anion Gap 9, Blood Urea Nitrogen 12 , Creatinine 0.65, Estimat Glomerular Filtration Rate 126, BUN/Creatinine Ratio 18, Glucose Level 94, Calcium Level 8.4L, Corrected Calcium 9.5, Total Bilirubin 0.7, Aspartate Amino Transf (AST/SGOT) 41H, Alanine Aminotransferase (ALT/SGPT) 37, Alkaline Phosphatase 107, Total Protein 6.4, Albumin 2.6L Microbiology 05/07/21 MRSA Screen - Final, Complete 05/07/21 Gram Stain - Final, Complete 05/07/21 CSF Culture - Final, Complete No growth 05/07/21 Blood Culture - Preliminary, Resulted Staphylococcus aureus Laboratory Tests 05/11/21 04:30 05/12/21 05:05 A/P: Assessment: AMS - improved Staph aureus - BC x 2 on 05-07-21 Multiloculated left psoas abscess with 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 No epidural abscess is seen at this time. Per MRI on 05-11-21 - management per medical services IgG hypogammaglobulinemia and receives IgG infusions monthly in [place]. Dr. Cisco Pettit as his PCP Chronic back pain - Degenerative changes in the lumbar spine, greatest at L3-L4 with moderate to severe spinal canal stenosis and moderate to severe right and moderate left foraminal stenosis. No acute fracture or dislocation in the lumbar spine. HTN HLD Mild cardiomyopathy - Echo of 05/07/21: LVEF 40-45%, mild global hypokinesis H/o anticoag for unknown reasons, Dr Cuello is managing currently Tobaccoism - quit chew tobacco 11 yrs ago Ortho - 5 right knee surgeries - right hip surgery - right shoulder surger - 4 back surgeries - last surgery 20 yrs ago Plan: Continue beta-giorgi because of mild cardiomyopathy and somewhat elevated heart rate (90s at rest) NIKOLAI to eval for SBE Management of staph infection per medical services Management of psoas abcess per medical/surgical services I discussed his case with Dr Cuello. Reason for anticoag is unclear. Dr Cuello is currently holding anticoag in anticipation of NIKOLAI and, possibly, surgery Monitor lab closely SARA FRANCO May 12, 2021 10:01
[2021-05-12] MEDS ORDERED: BISACODYL 10 MG SUPP (DULCOLAX) PR ONE (10:30)
[2021-05-12] MEDS ORDERED: LIDOCAINE/EPI 1%-1:100,000 (XYLOCAINE) 20ML ONE (11:03)
[2021-05-12] MEDS ORDERED: MIDAZOLAM 2 MG/2 ML (VERSED) VIAL ONE (12:03)
[2021-05-12] MEDS ORDERED: PROPOFOL INJECTION 50 ML IV ONE ×2 (12:03→12:43)
[2021-05-12] MEDS ORDERED: LIDOCAINE 2% VISCOUS 15 ML UDC ONE (12:22)
--- NOTE | 2021-05-12 13:03 | Progress Note-Post Operative ---
Post-Operative Progess Note Surgeon (s)/Tool Radial Drill Press Set Up Operator (s) Surgeon SWATI TREJO DO Tool Radial Drill Press Set Up Operator: PREETHI Washburn Pre-Operative Diagnosis Bacteremia, Michele-cath Post-Operative Diagnosis same Procedure & Operative Findings Date of Procedure 05/12/21 Procedure Performed/Findings PROCEDURE: Removal of port COMPLICATIONS: None. INDICATIONS: The patient is a 56 year-old male who had a port previously placed. Patient has bacteremia and the port can be a nidus for infection and a harbor for bacteria, needs port removed. The patient was explained risk and benefits of the procedure and wished to proceed with procedure. Consent was signed on the chart. PROCEDURE: The patient was taken to the operating suite and was prepped and draped in sterile fashion. A surgical pause was performed. I could see a matured tract from where they kept placing needle to access port. This mature hole/opening is a good source for the bacteremia. Local anesthetic was infiltrated to the area around the port. A number 15 blade scalpel was used to an elliptical incision around previous incision. Cautery was used to dissect down to the port which was then grasped and then dissected around. The catheter was removed in its entirety. The port was then able to be dissected out of the pocket and elevated. The wound was then irrigated with copious amounts of irrigation. Hemostasis had been achieved. The catheter tract was ligated with a 3-0 Vicryl stitch. The subcutaneous tissues were then reapproximated using 3-0 Vicryl. Skin was then closed using 4-0 Vicryl in a running fashion. The area was then washed and dried and Skin Affix placed over the incision. The patient tolerated the procedure well without complication and was taken to recovery room in stable condition. Anesthesia Type IV sedation by BARREL RIFLER Estimated Blood Loss Estimated blood loss (mL): scant Specimens/Packing Specimens Removed port and catheter tip sent for culture SWATI TREJO DO May 12, 2021 13:03
[2021-05-12] MEDS ORDERED: ONDANSETRON 4 MG/2 ML (SDV) Z0FRAN IVP PRN (13:15)
[2021-05-12] MEDS ORDERED: HYDROmorphone 2 MG/ML VIAL (DILAUDID) IV ONE (13:15)
--- NOTE | 2021-05-12 13:15 | Anesthesia-General Post-Op ---
MAC Patient Condition Mental Status/LOC: Same as Preop Cardiovascular: Satisfactory Nausea/Vomiting: Absent Respiratory: Satisfactory Pain: Controlled Complications: Absent Post Op Complications Complications None Follow Up Care/Instructions Patient Instructions None needed. Anesthesiology Discharge Order Discharge Order Patient is doing well, no complaints, stable vital signs, no apparent adverse anesthesia problems. No complications reported per nursing. RAMÍREZ JOSE CRNA May 12, 2021 13:15
[2021-05-12] MEDS ORDERED: LACTATED RINGERS 1,000 ML IV PRN (13:30)
[2021-05-12] MEDS ORDERED: LIDOCAINE 2% VISCOUS 15 ML UDC PO ONE (13:45)
--- NOTE | 2021-05-12 14:21 | Occupational Ther Daily Note ---
OT Current Status-Daily Note Subjective Pt. reports 9/10 pain with movement. States that he can't have pain meds due to having procedure to have port out. Appearance Pt. in bed. Alert and oriented. Agrees to work with OT. Mental Status/Objective Patient Orientation: Person, Place, Time, Situation ADL-Treatment Therapy Code Descriptions/Definitions Functional [place] Measure: 0=Not Assessed/NA 4=Minimal Assistance 1=Total Assistance 5=Supervision or Setup 2=Maximal Assistance 6=Modified [place] 3=Moderate Assistance 7=Complete IndependenceSCALE: Activities may be completed with or without assistive devices. 1-Mdaddugxgq-njpoflc completes the activity by him/herself with no assistance from a helper. 5-Set-up or Clean-up Assistance-helper sets up or cleans up; patient completes activity. [place] assists only prior to or following the activity. 4-Supervision or Touching Assistance-helper provides verbal cues and/or touching /steadying and/or contact guard assistance as patient completes activity. Assistance may be provided throughout the activity or intermittently. 3-Partial/Moderate Assistance-helper does LESS THAN HALF the effort. [place] lifts, holds or supports trunk or limbs, but provides less than half the effort. 2-Substantial/Maximal Assistance-helper does MORE THAN HALF the effort. [place] lifts or holds trunk or limbs and provides more than half the effort. 6-Pslwmuzwm-zvctpm does ALL the effort. Patient does none of the effort to complete the activity. Or, the assistance of 2 or more helpers is required for the patient to complete the activity. If activity was not attempted, code reason: 7-Patient Refused. 9-Not Applicable-not attempted and the patient did not perform the activity before the current illness, exacerbation or injury. 10-Not Attempted due to Environmental Limitations-(lack of equipment, weather restraints, etc.). 88-Not Attempted due to Medical Conditions or Safety Concerns. Other Treatment Pt. in bed when OT entered room. Physician in room as well and talking with pt. regarding current medical status. After left room, OT worked with pt. Pt. agrees to transfer EOB. Nursing okay'd treatment previously. Pt. educated on log roll for comfort. Pt. able to roll to side and required max assist for supine-sit. Pt. grimaced and yelled out, but once sitting, seemed to have less pain. Pt. sitting EOB with CGA for support. OT presented red theraband to pt. to work on UE strengthening for ADL skills. Pt. attempted to complete arm exercises for pectoral stretch. He immediately stated that he was having pain in his back and needed to lay down. Pt. laid self down quickly into bed with SBA. Pt. issued red therapy sponge for hand exercises as well, and educated to complete while supine. Pt. verbalizes understanding. Pt. also educated to continue with log rolling techniques for pain and safety with movement. Pt. indicates that up until about a month ago, he was independent with daily skills. 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 He lives with his elderly parents and is concerned about being able to take care of them. All needs are met at bed level. Education OT Patient Education: Correct positioning, Exercise program, Progress toward Goal/Update tx plan, Purpose of tx/functional activities, Reviewed precautions, Rehab process, Transfer techniques Teaching Recipient: Patient Teaching Methods: Demonstration, Discussion Response to Teaching: Verbalize Understanding, Return Demonstration OT Short Term Goals Short Term Goals Time Frame: May 17, 2021 Eatin Oral hygiene: 4 Toileting hygiene: 4 Shower/bathe self: 3 Upper body dressin Lower body dressin Putting on/taking off footwear: 4 OT Prison Goals Prison Goals Time Frame: May 24, 2021 Eating (QC): 6 Oral Hygiene (QC): 6 Toileting Hygiene (QC): 6 Shower/Bathe Self (QC): 4 Upper Body Dressing (QC): 6 Lower Body Dressing (QC): 6 On/Off Footwear (QC): 6 Additional Goals: 1-Demonstrate ADL Tasks, 2-Verbalize Understanding, 3- ImproveStrength/Ashley 1=Demonstrate adherence to instructed precautions during ADL tasks. 2=Patient will verbalize/demonstrate understanding of assistive devices/modifications for ADL. 3=Patient will improve strength/tolerance for activity to enable patient to perform ADL's. OT Education/Plan Problem List/Assessment Assessment: Decreased Activ Tolerance, Decreased UE Strength, Dependent Transfers, Impaired I ADL's, Impaired Self-Care Skills Discharge Recommendations Plan/Recommendations: Continue POC Therapy Discharge Recommendati: Post Acute OT Treatment Plan/Plan of Care Treatment,Training & Education: Yes Patient would benefit from OT for education, treatment and training to promote independence in ADL's, mobility, safety and/or upper extremity function for ADL's. Plan of Care: ADL Retraining, Functional Mobility, UE Funct Exercise/Act Treatment Duration: May 24, 2021 Frequency: 5 times per week Estimated Hrs Per Day: .25 hour per day Agreement: Yes Rehab Potential: Fair Time/GCodes Start Time: 10:35 Stop Time: 10:47 Total Time Billed (hr/min): 12 Billed Treatment Time 1, FA SHEILA FOSTER OT May 12, 2021 14:21
[2021-05-12] MEDS: HYDROcodone/APAP 5 MG/325 MG (LORTAB) TAB PO PRN (15:34)
--- NOTE | 2021-05-12 16:50 | Physician Query Clarification ---
Physician Query-General Query to Physician: The medical record reflects the following clinical scenario: The patient, in the setting of History/Risk factors, Immunologic disease, psoas abscess, Port a cath with purulent drainage Clinical Findings Admission VS/Labs HR 93, RR 16 increased to 22, BP 157/108, SpO2 97% sat on room air T 37.0, increased to 37.7 WBC 11.6 increased to 14.1, Lactic acid 1.22 BC X 2 pos for staph aureus, Treatment ER: 1 L LR, ceftriaxone IV 2 g Day of admission: lumbar puncture for CSF sample, Surgery consult, Port a cath removal Question: Do you agree with the impression of Sepsis per Dr. Germania Mckeon? 1. Yes; will document Sepsis, present on admission in the Progress Notes 2. No; will continue current documentation in the Progress Notes 3. Other; will document explanation of clinical findings 4. Clinically undetermined; no explanation for clinical findings Please clarify and document your clinical opinion in the Progress Notes and Discharge Summary including the definitive and/or presumptive diagnosis, (suspected or probable), related to the above clinical findings. Please include clinical findings supporting your diagnosis. In responding to this query, please exercise your independent professional judgment. The purpose of this communication is to more accurately reflect the complexity of your patients condition. The fact that a question is asked does not imply that any particular answer is desired or expected. Please remember a lack of response to the above will prompt a phone page by CDI/coding staff Thank you for timely response to this clarification. Wendy Devi MSN, RN Clinical Psychiatric Therapist [phone] [email or web address] PHYSICIAN RESPONSE: Based on the clinical findings in the record, please respond to the query above on this document as an addendum. Physician Response: If you have questions please contact: Cleaner Operator: Ext: Thank you for your time and cooperation. Clinical Psychiatric Therapist/Cleaner Operator This is a permanent part of the medical record WENDY DEVI May 12, 2021 16:50
--- NOTE | 2021-05-12 17:53 | Progress Note - Cardiology ---
Cardiology SOAP Progress Note Subjective: No cp or palp or syncope or shortness of breath at rest Gen malaise and weakness present Objective: I&O/Vital Signs 05/12/21 05/12/21 05/12/21 05/12/21 07:36 08:00 08:28 11:45 Temp 37.1 Pulse 86 Resp 20 B/P (MAP) 139/90 (106) Pulse Ox 97 98 98 O2 Delivery Room Air Room Air Room Air Simple Mask O2 Flow Rate 10.00 05/12/21 05/12/21 05/12/21 05/12/21 13:07 13:07 13:10 13:20 Temp 37.4 Resp 16 16 B/P (MAP) 120/89 (99) 97/52 (67) Pulse Ox 94 96 O2 Delivery OxyMask OxyMask OxyMask OxyMask O2 Flow Rate 6 6 4 2 05/12/21 05/12/21 05/12/21 05/12/21 13:20 13:30 13:35 13:40 Resp 14 14 B/P (MAP) 102/60 (74) 103/54 (70) Pulse Ox 94 94 O2 Delivery Room Air Room Air Room Air Room Air 05/12/21 05/12/21 05/12/21 13:40 14:33 15:54 Temp 37 37.2 36.9 Pulse 75 80 Resp 16 18 18 B/P (MAP) 103/55 (71) 128/82 (97) 143/84 (103) Pulse Ox 96 96 100 O2 Delivery Room Air Room Air Room Air 05/12/21 00:00 Intake Total 3027.4 ml Output Total 4125 ml Balance -1097.6 ml Constitutional: AAO x 3, well-developed, well-nourished Respiratory: No accessory muscle use, No respiratory distress; chest expansion is symmetric, chest is bilaterally symmetric, lungs clear to auscultation Cardiovascular: regular rate-rhythm; No JVD; S1 and S2 Gastrointestional: No tender; soft, audible bowel sounds Extremities: no lower extremity edema bilateral Neurologic/Psychiatric: grossly intact (moves all extremities) Skin: normal color, warm/dry; No rash on exposed areas, No ulcerations on exposed areas Results/Procedures: Labs Laboratory Tests 05/12/21 05:05: White Blood Count 9.8, Red Blood Count 4.23L, Hemoglobin 12.2L, Hematocrit 37L, Mean Corpuscular Volume 88, Mean Corpuscular Hemoglobin 29, Mean Corpuscular Hemoglobin Concent 33, Red Cell Distribution Width 12.9, Platelet Count 296, Mean Platelet Volume 9.3, Immature Granulocyte % (Auto) 1, Neutrophils (%) (Auto) 68, Lymphocytes (%) (Auto) 20, Monocytes (%) (Auto) 9, Eosinophils (%) (Auto) 2, Basophils (%) (Auto) 0, Neutrophils # (Auto) 6.7, Lymphocytes # (Auto) 1.9, Monocytes # (Auto) 0.9, Eosinophils # (Auto) 0.2, Basophils # (Auto) 0.0, Immature Granulocyte # (Auto) 0.1, Sodium Level 134L, Potassium Level 4.0, Chloride Level 101, Carbon Dioxide Level 24, Anion Gap 9, Blood Urea Nitrogen 12, Creatinine 0.65, Estimat Glomerular Filtration Rate 126, BUN/Creatinine Ra kaitlin 18, Glucose Level 94, Calcium Level 8.4L, Corrected Calcium 9.5, Total Bili blake 0.7, Aspartate Amino Transf (AST/SGOT) 41H, Alanine Aminotransferase (ALT /SGPT) 37, Alkaline Phosphatase 107, Total Protein 6.4, Albumin 2.6L Microbiology 05/11/21 MRSA Screen - Final, Complete MRSA not isolated 05/07/21 Gram Stain - Final, Complete 05/07/21 CSF Culture - Final, Complete No growth 05/07/21 Blood Culture - Preliminary, Resulted Staphylococcus aureus Laboratory Tests 05/11/21 04:30 05/12/21 05:05 A/P: Assessment: AMS - improved Staph aureus bacteremia (BC x 2 on 05-07-21) - NIKOLAI on 05/12/21 does not show any valvular vegetations / endocarditis, LVEF 50- 55%, trivial MR, no evidence of intracardiac thrombus Multiloculated left psoas abscess with 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 No epidural abscess is seen at this time. 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 Dr. Cisco Pettit as his PCP Chronic back pain - Degenerative changes in the lumbar spine, greatest at L3-L4 with moderate to severe spinal canal stenosis and moderate to severe right and moderate left foraminal stenosis. No acute fracture or dislocation in the lumbar spine. HTN HLD Mild cardiomyopathy - Echo of 05/07/21: LVEF 40-45%, mild global hypokinesis H/o anticoag for unknown reasons, Dr Cuello is managing currently Tobaccoism - quit chew tobacco 11 yrs ago Ortho - 5 right knee surgeries - right hip surgery - right shoulder surger - 4 back surgeries - last surgery 20 yrs ago Plan: Continue beta-giorgi NIKOLAI results reported above Management of staph infection per medical services Management of psoas abcess per medical/surgical services Reason for chronic anticoag is unclear. Dr Cuello is managing Monitor lab closely SHAGUFTA DUEÑAS MD FACP FACC CCDS May 12, 2021 17:53
--- NOTE | 2021-05-12 21:33 | Progress Note - Hospitalist ---
Subjective HPI/CC On Admission Date Seen by Provider: May 12, 2021 Time Seen by Provider: 10:00 AMS, encephalitis. Subjective/Events-last exam Pt awaiting port removal by Dr. Zimmer and NIKOLAI by Dr. 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 He has had three episodes of blood clots. He is on that life long anticoagulation He lives with his parents Review of Systems General: Fatigue, Malaise Musculoskeletal: back pain Focused Exam Time of Focused Exam: 08:30 Objective Exam Vital Signs Vital Signs Date Time Temp Pulse Resp B/P (MAP) Pulse Ox O2 Delivery O2 Flow Rate FiO2 05/13/21 04:32 35.8 89 20 113/75 (88) 97 Room Air 05/12/21 13:20 2 05/09/21 12:04 100 Capillary Refill : Less Than 3 SecondsLess Than 3 Seconds General Appearance: No Apparent Distress, WD/WN, Chronically ill Respiratory: Lungs Clear, Normal Breath Sounds Cardiovascular: Regular Rate, Rhythm Neurologic/Psychiatric: Alert, Oriented x3 Results/Procedures Lab Laboratory Tests 05/13/21 04:50 Patient resulted labs reviewed. Assessment/Plan Assessment and Plan Assess & Plan/Chief Complaint Assessment: L3-L4 spinal discitis with psoas abscess MRSA bacteremia [place] port requiring change out and placement of PICC line for IV antibiotics for 6 weeks NIKOLAI to rule out endocarditis Close follow-up by Dr. Menchaca as outpatient Immunoglobulin deficiency History of DVT x3 with PE filter in place maintained on Coumadin lifetime Critical Care Critically Ill Patient FREDDIE MESA DO May 12, 2021 21:33
[2021-05-12] MEDS: TAMSULOSIN 0.4 MG (FLOMAX) CAP PO SCH (21:39)
[2021-05-12] MEDS: MONTELUKAST 10 MG (SINGULAIR) TAB PO SCH (21:39)
[2021-05-12] MEDS: MELOXICAM 7.5 MG (MOBIC) TABLET PO SCH (21:39)
[2021-05-12] MEDS: LATANOPROST 0.005% (XALATAN) OPHTH SOLN 2.5 ML OU SCH (21:40)
[2021-05-12] MEDS: NORTRIPTYLINE 25 MG (PAMELOR) CAP PO SCH (21:42)
[2021-05-12] MEDS: PARoxetine 20 MG (PAXIL) TAB PO SCH (21:42)
[2021-05-13 00:36] VITALS: BP 123/82
[2021-05-13] MEDS: VANCOMYCIN 1250 MG/NS 250 ML IVPB IV SCH ×6 (02:09→17:18)
[2021-05-13] MEDS: KETOROLAC 30 MG/ML VIAL IVP PRN (02:09)
[2021-05-13 04:32] VITALS: BP 113/75
[2021-05-13 04:57] LABS: BASOPHILS % (AUTO) 0 % (0-10); EOSINOPHILS # (AUTO) 0.2 10^3/uL (0.0-0.3); EOSINOPHILS % (AUTO) 2 % (0-10); HEMATOCRIT 38 % (40-54); HEMOGLOBIN 12.3 g/dL (13.3-17.7); LYMPHOCYTES # (AUTO) 2.2 10^3/uL (1.0-4.0); LYMPHOCYTES % (AUTO) 22 % (12-44); MEAN CORPUSCULAR HEMOGLOBIN 29 pg (25-34); MEAN CORPUSCULAR HGB CONC 33 g/dL (32-36); MEAN CORPUSCULAR VOLUME 88 fL (80-99); MEAN PLATELET VOLUME 9.3 fL (9.0-12.2); MONOCYTES % (AUTO) 10 % (0-12); NEUTROPHILS # (AUTO) 6.4 10^3/uL (1.8-7.8); NEUTROPHILS % (AUTO) 64 % (42-75); PLATELET COUNT 353 10^3/uL (130-400); WHITE BLOOD COUNT 10.1 10^3/uL (4.3-11.0)
[2021-05-13 05:02] LABS: ALBUMIN 2.6 GM/DL (3.2-4.5); POTASSIUM 4.2 MMOL/L (3.6-5.0)
[2021-05-13 05:03] LABS: CALCIUM 8.4 MG/DL (8.5-10.1)
[2021-05-13 05:04] LABS: TOTAL PROTEIN 6.4 GM/DL (6.4-8.2)
[2021-05-13 05:06] LABS: BILIRUBIN,TOTAL 0.5 MG/DL (0.1-1.0)
[2021-05-13 05:08] LABS: CREATININE SERUM 0.62 MG/DL (0.60-1.30)
--- NOTE | 2021-05-13 06:45 | Progress Note - Hospitalist ---
CHIDI CINTRON MED STUDENT 05/13/21 0645: Subjective HPI/CC On Admission Date Seen by Provider: May 12, 2021 Time Seen by Provider: 08:00 AMS, encephalitis. Subjective/Events-last exam This is Aleksey a 56 yo male on day 6 of his hospital stay with the chief complaint of AMS and encephalitis. Upon entering the room he was laying in bed on his phone in deep thought, He was calm, cooperative, and engaged during questioning. He complained of back pain and pain in bilateral forearms. He stated that the pain felt like he was using a screwdriver for many hours. He stated that he was NPO and had his port removal planned for later on this morning. His last BM was 3 days ago.MRI results revealed a multiloculated left psoas abcess, L3-L4 severe spinal canal stenosis, and no acute fracture. Review of Systems Gastrointestinal: Constipation Musculoskeletal: arm pain (bilateral forearm), back pain (lumbar) Focused Exam Time of Focused Exam: 08:30 Respiratory: Chest Non Tender, Lungs Clear, Normal Breath Sounds, No Accessory Muscle Use, No Respiratory Distress Cardiovascular: Regular Rate, Rhythm, No Edema, No Gallop, No Murmur, Normal Peripheral Pulses Skin: normal color, warm/dry Objective Exam Vital Signs Vital Signs Date Time Temp Pulse Resp B/P (MAP) Pulse Ox O2 Delivery O2 Flow Rate FiO2 05/13/21 04:32 35.8 89 20 113/75 (88) 97 Room Air 05/12/21 13:20 2 05/09/21 12:04 100 Capillary Refill : Less Than 3 SecondsLess Than 3 Seconds General Appearance: No Apparent Distress, WD/WN HEENT: PERRL/EOMI, Pharynx Normal Neck: Normal Inspection, Non Tender, Supple Respiratory: Chest Non Tender, Lungs Clear, Normal Breath Sounds, No Accessory Muscle Use, No Respiratory Distress Cardiovascular: Regular Rate, Rhythm, No Edema, No Gallop, No Murmur, Normal Peripheral Pulses Gastrointestinal: Normal Bowel Sounds, Non Tender, Soft Rectal: Deferred Back: Vertebral Tenderness (lumbar) Extremity: Normal Inspection, Non Tender, No Calf Tenderness, No Pedal Edema Neurologic/Psychiatric: Alert, Oriented x3, No Motor/Sensory Deficits, Normal Mood/Affect Skin: Normal Color, Warm/Dry Results/Procedures Lab Laboratory Tests 05/13/21 04:50 Patient resulted labs reviewed. Assessment/Plan Assessment and Plan Assess & Plan/Chief Complaint AMS alert and oriented upon examination this AM encephalitis continue ceftriaxone, acyclovir, and vancomycin hypokalemia revolved with potassium supplementation- 4.0 on 05/12 hypophospatemia 1.3 on 05/10 repeat lab back pain continue tylenol, tramadol, tordol, mobic, and hydrocodone increase pain medication continue DVT prophylaxis lovenox continue home medications encourage IS use encourage ambulation continue PT/OT mildy anemic 12.2 on 05/12 hypertension controlled at on 05/12 bilateral leg pain continue gabapentin 900 TID elevated liver enzyme AST of 42 on 05/12 hypocalcemia Ca of 8.4 on 05/12 multiloculated left psoas abscess consult interventional radiology continue antibiotics L3-L4 severe spinal canal stenosis consult Dr. Mcnair to perform a NIKOLAI looking to possible vegetations constipation KELSEY CUELLO DO 05/14/21 0444: Supervisory-Addendum Brief Verification & Attestation Participated in pt care: history, MDM, physical Personally performed: exam, history, MDM, supervision of care Care discussed with: Medical Student Procedures: n/a Results interpretation: Verified all documentation Verification and Attestation of Medical Student E/M Service A medical student performed and documented this service in my presence. I reviewed and verified all information documented by the medical student and made modifications to such information, when appropriate. I personally performed the physical exam and medical decision making. Kelsey Cuello, May 14, 2021,04:43 CHIDI CINTRON MED STUDENT May 13, 2021 06:45 KELSEY CUELLO DO May 14, 2021 04:44
[2021-05-13] MEDS: MULTIVIT W/MINERALS TAB (THERAGRAN M) PO SCH (06:46)
--- NOTE | 2021-05-13 07:35 | Progress Note - Surgery ---
PALMER ESTEVEZ MED STUDENT 05/13/21 0735: Subjective Date Seen by a Provider: May 13, 2021 Time Seen by a Provider: 07:15 Subjective/Events-last exam 56M w/ PMH of COPD, asthma, prostate problems, abdominal hernia, back injury w/multiple surgeries, IgG hypogammaglobuliemia, depression, substance use disorder to ED w/complaints of generalized pain in shoulder and chest and AMS. U/A clean catch. toxicology negative. Covid negative. received booster two days prior. CSF culture no growth. Nasal swab and blood culture MRSA positive, on contact precautions. CXR no cardiopulm findings. chest/thorax CTA atelectasis, adenopathy. Lumbar x-ray degenerative spine changes and possible ileus. lumbar MRI multiloculated left psoas abscess. head CT mucosal thickening in sphenoid sinuses and ethmoid air cells. Picc line L brachial 2d ago. Port removal R chest yesterday. NIKOLAI with EF 50-55%. Today: Patient is resting comfortably in bed. He is A&O x3. He states he has pain all over due to chronic conditions. 4/10 pain. Bandages on R chest from port removal are CTI. He is tolerating a regular diet and denies issues. He has increased frequency and pain with urination, using urinals. He has a BM last night. He uses a walker and assist to ambulate. Review of Systems General: No Chills, No Fatigue HEENT: No Head Aches, No Visual Changes Pulmonary: No Dyspnea, No Cough Cardiovascular: No: Chest Pain, Palpitations, Edema Gastrointestinal: No: Nausea, Vomiting, Abdominal Pain, Diarrhea, Constipation Genitourinary: Dysuria, Frequency Musculoskeletal: back pain Neurological: Weakness Focused Exam Time of Focused Exam: 08:30 Objective Exam Vital Signs Date Time Temp Pulse Resp B/P (MAP) Pulse Ox O2 Delivery O2 Flow Rate FiO2 05/13/21 04:32 35.8 89 20 113/75 (88) 97 Room Air 05/13/21 02:45 35.8 05/13/21 00:36 36.8 82 20 123/82 (96) 94 Room Air 05/12/21 20:48 Room Air 05/12/21 20:00 36.7 88 20 145/90 (108) 97 Room Air 05/12/21 19:03 96 Room Air 05/12/21 15:54 36.9 80 18 143/84 (103) 100 Room Air 05/12/21 14:33 37.2 75 18 128/82 (97) 96 Room Air 05/12/21 13:40 37 16 103/55 (71) 96 Room Air 05/12/21 13:40 Room Air 05/12/21 13:35 Room Air 05/12/21 13:30 14 103/54 (70) 94 Room Air 05/12/21 13:20 14 102/60 (74) 94 Room Air 05/12/21 13:20 OxyMask 2 05/12/21 13:10 16 97/52 (67) 96 OxyMask 4 05/12/21 13:07 37.4 16 120/89 (99) 94 OxyMask 6 05/12/21 13:07 OxyMask 6 05/12/21 11:45 Simple Mask 10.00 05/12/21 08:28 37.1 86 20 139/90 (106) 98 Room Air 05/12/21 08:00 98 Room Air 05/12/21 07:36 97 Room Air I & O 05/13/21 07:00 Intake Total 1000 ml Output Total 4075 ml Balance -3075 ml Capillary Refill : Less Than 3 SecondsLess Than 3 Seconds General Appearance: No Apparent Distress, WD/WN HEENT: PERRL/EOMI, Pharynx Normal Neck: Normal Inspection, Non Tender, Supple Respiratory: Chest Non Tender, Lungs Clear, Normal Breath Sounds, No Accessory Muscle Use, No Respiratory Distress, Other (bandage on R chest CTI) Cardiovascular: Regular Rate, Rhythm, No Murmur Peripheral Pulses: 1+ Left Dors-Pedis (L), 1+ Radial Pulses (R) Gastrointestinal: non tender, soft, no organomegaly Extremity: Non Tender, No Calf Tenderness, No Pedal Edema, Other (scabs on ankles due to prior tick bites and scratching) Neurologic/Psychiatric: Alert, Oriented x3, Motor Weakness (motor weakness in upper extremities, L arm worse than right), Other (picc line in L brachial) Skin: Normal Color, Warm/Dry Results Lab Laboratory Tests 05/13/21 04:50: White Blood Count 10.1, Red Blood Count 4.27L, Hemoglobin 12.3L, Hematocrit 38L, Mean Corpuscular Volume 88, Mean Corpuscular Hemoglobin 29, Mean Corpuscular Hemoglobin Concent 33, Red Cell Distribution Width 12.8, Platelet Count 353, Mean Platelet Volume 9.3, Immature Granulocyte % (Auto) 3, Neutrophils (%) (Auto) 64, Lymphocytes (%) (Auto) 22, Monocytes (%) (Auto) 10, Eosinophils (%) (Auto) 2, Basophils (%) (Auto) 0, Neutrophils # (Auto) 6.4, Lymphocytes # (Auto) 2.2, Monocytes # (Auto) 1.0, Eosinophils # (Auto) 0.2, Basophils # (Auto) 0.0, Immature Granulocyte # (Auto) 0.3H, Sodium Level 135, Potassium Level 4.2, Chloride Level 102, Carbon Dioxide Level 24, Anion Gap 9, Blood Urea Nitrogen 13, Creatinine 0.62, Estimat Glomerular Filtration Rate 133, BUN/Creatinine Ratio 21, Glucose Level 100, Calcium Level 8.4L, Corrected Calcium 9.5, Total Bilirubin 0.5, Aspartate Amino Transf (AST/SGOT) 46H, Alanine Aminotransferase (ALT/SGPT) 40, Alkaline Phosphatase 106, Total Protein 6.4, Albumin 2.6L Microbiology 05/11/21 MRSA Screen - Final, Complete MRSA not isolated 05/07/21 Gram Stain - Final, Complete 05/07/21 CSF Culture - Final, Complete No growth 05/07/21 Blood Culture - Preliminary, Resulted Staphylococcus aureus Assessment/Plan Assessment/Plan Assessment/Plan Bacteremia Multiloculated Left Psoas abscess HTN Hx of IgG hypogammaglobulinemia Port removed yesterday. port tip sent for cultures. continue abx. PEDRO LERNER DO 05/13/21 1058: Subjective Time Seen by a Provider: 10:13 Subjective/Events-last exam Pt seen and examined, no new complaints. Review of Systems General: No Chills Pulmonary: No Dyspnea, No Cough Cardiovascular: No: Chest Pain, Palpitations Gastrointestinal: No: Nausea, Vomiting, Abdominal Pain Genitourinary: Dysuria, Frequency Musculoskeletal: back pain Neurological: Weakness Objective Exam General Appearance: No Apparent Distress, WD/WN Respiratory: Lungs Clear, Normal Breath Sounds, No Accessory Muscle Use, No Respiratory Distress Cardiovascular: Regular Rate, Rhythm, No Murmur Gastrointestinal: non tender, soft, no organomegaly Extremity: Other (scabs on ankles due to prior tick bites and scratching, picc line in L brachial) Neurologic/Psychiatric: Motor Weakness (motor weakness in upper extremities, L arm worse than right) Skin: Other (Inc is c/d/I no swelling) Assessment/Plan Assessment/Plan Assessment/Plan S/P Port Removal for Bacteremia Pt will need to have Port out for 2-3 weeks and then have negative blood cultures. After that, will be able to replace Port and would go on left side this time. Waiting on culture from tip of catheter. Supervisory-Addendum Brief Verification & Attestation Participated in pt care: history, MDM, physical Personally performed: exam, history, MDM, supervision of care Care discussed with: Medical Student Procedures: n/a Verification and Attestation of Medical Student E/M Service A medical student performed and documented this service. I then reviewed and verified all information documented by the medical student and made modifications to such information, when appropriate. I personally performed a physical exam, medical decision making and then discussed any differences between the notes and made revisions as necessary to create one note. Pedro Lerner , 05/13/21 , 10:58 PALMER ESTEVEZ MED STUDENT May 13, 2021 07:35 PEDRO LERNER DO May 13, 2021 10:58
[2021-05-13] MEDS: RT--FLUTICASONE/SALMETEROL 232-14 (AIRDUO RespiCLICK) IH SCH ×2 (07:37→20:09)
[2021-05-13] MEDS: UMECLIDINIUM BROMIDE (INCRUSE ELLIPTA) 7'S IH SCH (07:38)
[2021-05-13 08:00] VITALS: BP 137/94
--- NOTE | 2021-05-13 09:22 | Physical Therapy Daily Note ---
PT Daily Note-Current Subjective Pt in bed upon arrival and agrees to tx. Pt doesn't c/o any pain prior to start. During hip flexion pt states slight soreness in hip. Pt stated the L UE feels weak today. Mental Status Patient Orientation: Person, Place, Time, Situation Transfers SCALE: Activities may be completed with or without assistive devices. 2-Sauuyangpm-rhlocqa completes the activity by him/herself with no assistance from a helper. 5-Set-up or Clean-up Assistance-helper sets up or cleans up; patient completes activity. Julian assists only prior to or following the activity. 4-Supervision or Touching Assistance-helper provides verbal cues and/or t ouching/steadying and/or contact guard assistance as patient completes activity. Assistance may be provided throughout the activity or intermittently. 3-Partial/Moderate Assistance-helper does LESS THAN HALF the effort. Julian lifts, holds or supports trunk or limbs, but provides less than half the effort. 2-Substantial/Maximal Assistance-helper does MORE THAN HALF the effort. Julian lifts or holds trunk or limbs and provides more than half the effort. 5-Dslletwdr-juxkve does ALL the effort. Patient does none of the effort to complete the activity. Or, the assistance of 2 or more helpers is required for the patient to complete the activity. If activity was not attempted, code reason: 7-Patient Refused. 9-Not Applicable-not attempted and the patient did not perform the activity before the current illness, exacerbation or injury. 10-Not Attempted due to Environmental Limitations-(lack of equipment, weather restraints, etc.). 88-Not Attempted due to Medical Conditions or Safety Concerns. Roll Left & Right (QC): 4 Lying to Sitting/Side of Bed(Q: 4 Sit to Stand (QC): 4 Toilet Transfer (QC): 4 Pt performed bed mobility requiring VC for hand placement. Pt sat EOB and performed sit to stand CGA. Post amb, pt transferred from recliner to [facility] [place], and back to recliner CGA. Gait Training Does the Patient Walk?: Yes Distance: 100' Walk 10 feet (QC): 4 Walk 50 ft with 2 Turns(QC): 4 Gait Assistive Device: FWW Pt amb w wide YAHIR, no gait deviations noted. Required CGA. Exercises Seated Therapy Exercises: Ankle pumps, Sit to stand, Long arc quads, Hip flexion, Hip abd/add, Glut set Seated Reps: 10 Treatments Pt performed bed mobility prior to amb in room. Pt returns to recliner and performs seated ex x10 reps. Pt transfers to BSC and returns to recliner. Pt left with all needs met, call light in hand. Assessment Current Status: Good Progress Pt had no gait deviations and required less rest breaks. Pt pain was tolerable today. PT Group Home Goals Group Home Goals PT Group Home Goals Time Frame: May 17, 2021 Roll Left & Right (QC): 6 Sit to Lying (QC): 6 Lying-Sitting on Side/Bed(QC): 6 Sit to Stand (QC): 4 Chair/Mdr-hp-Nyzvl Xfer(QC): 4 Walk 10 feet (QC): 4 Walk 50ft with 2 Turns (QC): 4 Walk 150 ft (QC): 4 PT Plan Treatment/Plan Treatment Plan: Continue Plan of Care Treatment Plan: Bed Mobility, Education, Functional Activity Ashley, Functional Strength, Gait, Safety, Therapeutic Exercise, Transfers Treatment Duration: May 17, 2021 Frequency: 6 times per week Estimated Hrs Per Day: .25 hour per day Patient and/or Family Agrees t: Yes Safety Risks/Education Patient Education: Gait Training, Transfer Techniques, Safety Issues Teaching Recipient: Patient Teaching Methods: Demonstration, Discussion Response to Teaching: Verbalize Understanding, Return Demonstration Time/GCodes Time In: 849 Time Out: 912 Total Billed Treatment Time: 23 Total Billed Treatment 1, GT, EX INDIO WILSON [employer] SUPER[employer]OR May 13, 2021 09:22
[2021-05-13] MEDS: CYANOCOBALAMIN 1,000 MCG (VITAMIN B-12) TABLET PO SCH (09:24)
[2021-05-13] MEDS: TIMOLOL MALEATE 0.5% 5 ML (TIMOPTIC) BTL OU SCH (09:24)
[2021-05-13] MEDS: GABAPENTIN 300 MG (NEURONTIN) CAP PO SCH ×3 (09:24→20:29)
[2021-05-13] MEDS: lisINopril 5 MG (PRINIVIL) TABLET PO SCH (09:24)
[2021-05-13] MEDS: SENNA W/DOCUSATE (SENOKOT S) TABLET PO SCH ×3 (09:24→20:33)
[2021-05-13] MEDS: FLUTICASONE NASAL SPRAY (FLONASE) 16 GM BTL NS SCH (09:25)
[2021-05-13 12:00] VITALS: BP 120/69
--- NOTE | 2021-05-13 13:47 | Progress Note - Hospitalist ---
CHIDI CINTRON MED STUDENT 05/13/21 1347: Subjective HPI/CC On Admission Date Seen by Provider: May 13, 2021 Time Seen by Provider: 09:00 AMS, encephalitis. Subjective/Events-last exam This is Aleksey a 56 yo male on day 7 of his hospital stay with the chief complaint of AMS and encephalitis. Upon entering the room he was sitting in his chair speaking on the phone. He was calm, cooperative, and engaged during questioning. He had concerns of muscle weakness in his left forearm and hand. He stated that his back pain was much less today and stated that he is working with PT to get his strength back. It was discovered that he received IVIG infusions once a month with Dr. Pettit. Review of Systems Neurological: Weakness (left hand and forearm) Focused Exam Time of Focused Exam: 08:30 Respiratory: Chest Non Tender, Lungs Clear, Normal Breath Sounds, No Accessory Muscle Use, No Respiratory Distress Cardiovascular: Regular Rate, Rhythm, No Edema, No Gallop, No Murmur, Normal Peripheral Pulses Skin: normal color, warm/dry Objective Exam Vital Signs Vital Signs Date Time Temp Pulse Resp B/P (MAP) Pulse Ox O2 Delivery O2 Flow Rate FiO2 05/13/21 12:00 36.8 88 20 120/69 (86) 100 Room Air 05/12/21 13:20 2 05/09/21 12:04 100 Capillary Refill : Less Than 3 SecondsLess Than 3 Seconds General Appearance: No Apparent Distress, WD/WN HEENT: PERRL/EOMI, Pharynx Normal Neck: Normal Inspection, Non Tender, Supple Respiratory: Chest Non Tender, Lungs Clear, Normal Breath Sounds, No Accessory Muscle Use, No Respiratory Distress Cardiovascular: Regular Rate, Rhythm, No Edema, No Gallop, No Murmur Gastrointestinal: Normal Bowel Sounds, Non Tender, Soft Rectal: Deferred Back: Vertebral Tenderness (minimal lumbar pain) Extremity: Normal Inspection, Non Tender, No Calf Tenderness, No Pedal Edema, Other (left forearm and hand weakness) Neurologic/Psychiatric: Alert, Oriented x3, No Motor/Sensory Deficits, Normal Mood/Affect Skin: Normal Color, Warm/Dry Results/Procedures Lab Laboratory Tests 05/13/21 04:50 Patient resulted labs reviewed. Assessment/Plan Assessment and Plan Assess & Plan/Chief Complaint AMS alert and oriented upon examination this AM encephalitis transition to daptomycin for ease of antibiotic coverage hypokalemia revolved with potassium supplementation- 4.2 on 05/13 hypophospatemia 1.3 on 05/10 repeat lab back pain continue tylenol, tramadol, tordol, mobic, and hydrocodone increase pain medication continue DVT prophylaxis lovenox continue home medications encourage IS use encourage ambulation continue PT/OT mildy anemic 12.3 on 05/13 hypertension controlled at 113/75 on 05/13 bilateral leg pain-resolved continue gabapentin 900 TID elevated liver enzyme AST of 46 on 05/13 hypocalcemia Ca of 8.4 on 05/13 multiloculated left psoas abscess consult interventional radiology continue antibiotics L3-L4 severe spinal canal stenosis consult Dr. 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 Review of Systems General: Fatigue, Malaise Objective Exam General Appearance: No Apparent Distress, WD/WN, Chronically ill Respiratory: Lungs Clear, Normal Breath Sounds Cardiovascular: Regular Rate, Rhythm Neurologic/Psychiatric: Alert, Oriented x3 Assessment/Plan Assessment and Plan Assess & Plan/Chief Complaint Swing bed in [facility] Supervisory-Addendum Brief Verification & Attestation Participated in pt care: history, MDM, physical Personally performed: exam, history, MDM, supervision of care Care discussed with: Medical Student Procedures: n/a Results interpretation: Verified all documentation Verification and Attestation of Medical Student E/M Service A medical student performed and documented this service in my presence. I reviewed and verified all information documented by the medical student and made modifications to such information, when appropriate. I personally performed the physical exam and medical decision making. Kelsey Mesa, May 14, 2021,05:57 CHIDI CINTRON MED STUDENT May 13, 2021 13:47 KELSEY MESA DO May 14, 2021 05:58
--- NOTE | 2021-05-13 14:09 | Occupational Ther Daily Note ---
OT Current Status-Daily Note Subjective Pt alert, lying in bed. Pt agrees to therapy. Pt asks when he needs a splint due to weakness in hands. FERNANDEZ educated pt that a splint, at this time, is counterproductive since he has fair muscle tone and has AROM throughout L UE though appears weak. Mental Status/Objective Patient Orientation: Person, Place, Time, Situation Attachments: IV ADL-Treatment Therapy Code Descriptions/Definitions Functional [place] Measure: 0=Not Assessed/NA 4=Minimal Assistance 1=Total Assistance 5=Supervision or Setup 2=Maximal Assistance 6=Modified [place] 3=Moderate Assistance 7=Complete IndependenceSCALE: Activities may be completed with or without assistive devices. 1-Tztjczedhv-wnesplt completes the activity by him/herself with no assistance from a helper. 5-Set-up or Clean-up Assistance-helper sets up or cleans up; patient completes activity. [place] assists only prior to or following the activity. 4-Supervision or Touching Assistance-helper provides verbal cues and/or touching/steadying and/or contact guard assistance as patient completes activity. Assistance may be provided throughout the activity or intermittently. 3-Partial/Moderate Assistance-helper does LESS THAN HALF the effort. [place] lifts, holds or supports trunk or limbs, but provides less than half the effort. 2-Substantial/Maximal Assistance-helper does MORE THAN HALF the effort. [place] lifts or holds trunk or limbs and provides more than half the effort. 4-Zplqniovr-naiqxu does ALL the effort. Patient does none of the effort to complete the activity. Or, the assistance of 2 or more helpers is required for the patient to complete the activity. If activity was not attempted, code reason: 7-Patient Refused. 9-Not Applicable-not attempted and the patient did not perform the activity before the current illness, exacerbation or injury. 10-Not Attempted due to Environmental Limitations-(lack of equipment, weather restraints, etc.). 88-Not Attempted due to Medical Conditions or Safety Concerns. Other Treatment Pt able to move L UE through full AROM. Pt demonstrates weakness in shldr, tricep, wrist ext and thumb CMC flexion. 1 set 10 reps of AROM in all planes. Medium resistance theraband exercises completed for L UE shldr abd/add, L bicep flex and L tricep ext(1 set 10 reps). After session, pt lying in bed with call ligth/phone in reach. All needs met in room. OT Short Term Goals Short Term Goals Time Frame: May 17, 2021 Eatin Oral hygiene: 4 Toileting hygiene: 4 Shower/bathe self: 3 Upper body dressin Lower body dressin Putting on/taking off footwear: 4 OT Snf Goals Snf Goals Time Frame: May 24, 2021 Eating (QC): 6 Oral Hygiene (QC): 6 Toileting Hygiene (QC): 6 Shower/Bathe Self (QC): 4 Upper Body Dressing (QC): 6 Lower Body Dressing (QC): 6 On/Off Footwear (QC): 6 Additional Goals: 1-Demonstrate ADL Tasks, 2-Verbalize Understanding, 3-ImproveStrength/Ashley 1=Demonstrate adherence to instructed precautions during ADL tasks. 2=Patient will verbalize/demonstrate understanding of assistive devices/modifications for ADL. 3=Patient will improve strength/tolerance for activity to enable patient to perform ADL's. OT Education/Plan Problem List/Assessment Assessment: Decreased Activ Tolerance, Decreased UE Strength, Impaired Self- Care Skills Discharge Recommendations Plan/Recommendations: Continue POC Treatment Plan/Plan of Care Patient would benefit from OT for education, treatment and training to promote independence in ADL's, mobility, safety and/or upper extremity function for ADL's. Plan of Care: ADL Retraining, Functional Mobility, UE Funct Exercise/Act Treatment Duration: May 24, 2021 Frequency: 5 times per week Estimated Hrs Per Day: .25 hour per day Agreement: Yes Rehab Potential: Fair Time/GCodes Start Time: 13:28 Stop Time: 13:40 Total Time Billed (hr/min): 12 Billed Treatment Time 1 visit-EX 1 (12 min) YESSI FERNANDEZ May 13, 2021 14:09
[2021-05-13] MEDS: HYDROcodone/APAP 5 MG/325 MG (LORTAB) TAB PO PRN ×2 (15:05→21:23)
[2021-05-13 16:00] VITALS: BP 131/79
--- NOTE | 2021-05-13 17:28 | Progress Note - Cardiology ---
Cardiology SOAP Progress Note Subjective: No cp or palp or syncope or shortness of breath Some gen malaise No n/v/d Objective: I&O/Vital Signs 05/13/21 05/13/21 05/13/21 05/13/21 07:38 07:39 08:00 08:00 Temp 36.6 Pulse 92 Resp 20 B/P (MAP) 137/94 (108) Pulse Ox 95 95 95 O2 Delivery Room Air Room Air Room Air Room Air 05/13/21 12:00 Temp 36.8 Pulse 88 Resp 20 B/P (MAP) 120/69 (86) Pulse Ox 100 O2 Delivery Room Air 05/13/21 00:00 Intake Total 850 ml Output Total 4075 ml Balance -3225 ml Constitutional: AAO x 3, well-developed, well-nourished Respiratory: No accessory muscle use, No respiratory distress; chest expansion is symmetric, chest is bilaterally symmetric, lungs clear to auscultation Cardiovascular: regular rate-rhythm; No JVD; S1 and S2 Gastrointestional: No tender; soft, audible bowel sounds Extremities: no lower extremity edema bilateral Neurologic/Psychiatric: grossly intact (moves all extremities) Skin: normal color, warm/dry Results/Procedures: Labs Laboratory Tests 05/13/21 04:50: White Blood Count 10.1, Red Blood Count 4.27L, Hemoglobin 12.3L, Hematocrit 38L, Mean Corpuscular Volume 88, Mean Corpuscular Hemoglobin 29, Mean Corpuscular Hemoglobin Concent 33, Red Cell Distribution Width 12.8, Platelet Count 353, Mean Platelet Volume 9.3, Immature Granulocyte % (Auto) 3, Neutrophils (%) (Auto) 64, Lymphocytes (%) (Auto) 22, Monocytes (%) (Auto) 10, Eosinophils (%) (Auto) 2, Basophils (%) (Auto) 0, Neutrophils # (Auto) 6.4, Lymphocytes # (Auto) 2.2, Monocytes # (Auto) 1.0, Eosinophils # (Auto) 0.2, Basophils # (Auto) 0.0, Immature Granulocyte # (Auto) 0.3H, Sodium Level 135, Potassium Level 4.2, Chloride Level 102, Carbon Dioxide Level 24, Anion Gap 9, Blood Urea Nitrogen 13, Creatinine 0.62, Estimat Glomerular Filtration Rate 133, BUN/Creatinine Ratio 21, Glucose Level 100, Calcium Level 8.4L, Corrected Calcium 9.5, Total Bilirubin 0.5, Aspartate Amino Transf (AST/SGOT) 46H, Alanine Aminotransferase (ALT/SGPT) 40, Alkaline Phosphatase 106, Total Protein 6.4, Albumin 2.6L Microbiology 05/12/21 Gram Stain - Final, Resulted 05/12/21 Anaerobic Culture, Resulted Pending 05/12/21 Surgical Culture - Preliminary, Resulted No growth 05/11/21 MRSA Screen - Final, Complete MRSA not isolated 05/07/21 Gram Stain - Final, Complete 05/07/21 CSF Culture - Final, Complete No growth 05/07/21 Blood Culture - Final, Complete Staphylococcus aureus Laboratory Tests 05/12/21 05:05 05/13/21 04:50 A/P: Assessment: AMS - improved Staph aureus bacteremia (BC x 2 on 05-07-21) - NIKOLAI on 05/12/21 does not show any valvular vegetations / endocarditis, LVEF 50- 55%, trivial MR, no evidence of intracardiac thrombus Multiloculated left psoas abscess with 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 No epidural abscess is seen at this time. 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 Dr. Cisco Pettit as his PCP Chronic back pain - Degenerative changes in the lumbar spine, greatest at L3-L4 with moderate to severe spinal canal stenosis and moderate to severe right and moderate left foraminal stenosis. No acute fracture or dislocation in the lumbar spine. HTN HLD Mild cardiomyopathy - Echo of 05/07/21: LVEF 40-45%, mild global hypokinesis H/o anticoag for unknown reasons, Dr Cuello is managing currently Tobaccoism - quit chew tobacco 11 yrs ago Ortho - 5 right knee surgeries - right hip surgery - right shoulder surger - 4 back surgeries - last surgery 20 yrs ago Plan: I discussed his NIKOLAI results with him Management of staph infection per medical services Management of psoas abcess per medical/surgical services Reason for chronic anticoag is unclear. Dr Cuello is managing Monitor lab SHAGUFTA DUEÑAS MD [facility] May 13, 2021 17:28
[2021-05-13 20:00] VITALS: BP 134/74
[2021-05-13] MEDS: NORTRIPTYLINE 25 MG (PAMELOR) CAP PO SCH (20:30)
[2021-05-13] MEDS: MELOXICAM 7.5 MG (MOBIC) TABLET PO SCH (20:30)
[2021-05-13] MEDS: MONTELUKAST 10 MG (SINGULAIR) TAB PO SCH (20:30)
[2021-05-13] MEDS: PARoxetine 20 MG (PAXIL) TAB PO SCH (20:30)
[2021-05-13] MEDS: TAMSULOSIN 0.4 MG (FLOMAX) CAP PO SCH (20:30)
[2021-05-13] MEDS: LATANOPROST 0.005% (XALATAN) OPHTH SOLN 2.5 ML OU SCH (20:31)
[2021-05-14 00:30] VITALS: BP 123/72
[2021-05-14] MEDS: VANCOMYCIN 1250 MG/NS 250 ML IVPB IV SCH ×4 (01:15→08:53)
[2021-05-14 04:20] VITALS: BP 133/87
[2021-05-14] MEDS: HYDROcodone/APAP 5 MG/325 MG (LORTAB) TAB PO PRN ×2 (05:21→12:53)
[2021-05-14] MEDS: MULTIVIT W/MINERALS TAB (THERAGRAN M) PO SCH (05:21)
[2021-05-14 05:37] LABS: BASOPHILS # (AUTO) 0.1 10^3/uL (0.0-0.1); BASOPHILS % (AUTO) 1 % (0-10); EOSINOPHILS # (AUTO) 0.2 10^3/uL (0.0-0.3); EOSINOPHILS % (AUTO) 2 % (0-10); HEMATOCRIT 39 % (40-54); HEMOGLOBIN 12.8 g/dL (13.3-17.7); LYMPHOCYTES # (AUTO) 2.2 10^3/uL (1.0-4.0); LYMPHOCYTES % (AUTO) 20 % (12-44); MEAN CORPUSCULAR HEMOGLOBIN 29 pg (25-34); MEAN CORPUSCULAR HGB CONC 33 g/dL (32-36); MEAN CORPUSCULAR VOLUME 89 fL (80-99); MEAN PLATELET VOLUME 8.8 fL (9.0-12.2); MONOCYTES % (AUTO) 9 % (0-12); NEUTROPHILS # (AUTO) 7.1 10^3/uL (1.8-7.8); NEUTROPHILS % (AUTO) 64 % (42-75); PLATELET COUNT 429 10^3/uL (130-400)
[2021-05-14 05:53] LABS: ALBUMIN 2.8 GM/DL (3.2-4.5); POTASSIUM 4.1 MMOL/L (3.6-5.0)
[2021-05-14 05:54] LABS: CALCIUM 8.7 MG/DL (8.5-10.1)
[2021-05-14 05:55] LABS: TOTAL PROTEIN 7.1 GM/DL (6.4-8.2)
[2021-05-14 05:57] LABS: BILIRUBIN,TOTAL 0.7 MG/DL (0.1-1.0)
[2021-05-14 05:59] LABS: CREATININE SERUM 0.67 MG/DL (0.60-1.30)
[2021-05-14 07:36] VITALS: BP 139/93
[2021-05-14] MEDS: RT--FLUTICASONE/SALMETEROL 232-14 (AIRDUO RespiCLICK) IH SCH (07:49)
[2021-05-14] MEDS: UMECLIDINIUM BROMIDE (INCRUSE ELLIPTA) 7'S IH SCH (07:49)
[2021-05-14] MEDS: TIMOLOL MALEATE 0.5% 5 ML (TIMOPTIC) BTL OU SCH (08:53)
[2021-05-14] MEDS: CYANOCOBALAMIN 1,000 MCG (VITAMIN B-12) TABLET PO SCH (08:53)
[2021-05-14] MEDS: SENNA W/DOCUSATE (SENOKOT S) TABLET PO SCH (08:53)
[2021-05-14] MEDS: lisINopril 5 MG (PRINIVIL) TABLET PO SCH (08:53)
[2021-05-14] MEDS: GABAPENTIN 300 MG (NEURONTIN) CAP PO SCH ×2 (08:53→12:54)
[2021-05-14] MEDS: FLUTICASONE NASAL SPRAY (FLONASE) 16 GM BTL NS SCH (08:54)
[2021-05-14] MEDS ORDERED: DAPT500V3 IV (10:13)
[2021-05-14 11:20] VITALS: BP 116/79
[2021-05-14] MEDS ORDERED: APIX5TAB PO (11:25)
[2021-05-14] MEDS ORDERED: ACHD5005 PO ×3 (11:25→16:14)
[2021-05-14] MEDS ORDERED: MTP25TSR PO (11:25)
--- NOTE | 2021-05-14 11:27 | Discharge Summary ---
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 (4) Immunocompromised Status: Acute (5) Encephalitis Status: Acute Hospital Course Date of Admission: May 07, 2021 at 21:20 Admission Diagnosis : Family Physician/Provider: Sonu Bautista - [facility] Date of Discharge: 05/14/21 Discharge Diagnosis: Altered mental status, MRSA bacteremia requiring NIKOLAI and [place] port removal, encephalitis, psoas abscess, L3-L4 discitis, lacunar infarct subacute with left arm slight weakness, recurrent DVT discontinue Coumadin started Eliquis with filter in place from past, immunoglobulin deficiency Hospital Course: Hospital course: Pt had a lengthy, complicated hospital course for eight days after he was admitted for altered mental status, found to have encephalitis. Pt was placed on Vancomycin, Rocephin and Acyclovir. CSF fluid had no growth to date but Staph Au reus MRSA was diagnosed in all four bottles of blood culture. [place]ong port was removed and psoas abcess with L3-L4 osteomyelitis was managed with IV antibiotics and Pt will have close follow-up with Dr. Menchaca as an outpatient, he will receive Daptomycin IV daily for an additional five weeks and medication was sent to pharmacy for him. He did have a lacunar infarct on CT scan, he did have slight weakness in the arm that PT and OT was working with on, but he will need close follow-up to evaluate the need for any type of outpatient therapy. Labs and Pending Lab Test: Laboratory Tests 05/14/21 05:24: White Blood Count 11.0, Red Blood Count 4.39, Hemoglobin 12.8L, Hematocrit 39L, Mean Corpuscular Volume 89, Mean Corpuscular Hemoglobin 29, Mean Corpuscular Hemoglobin Concent 33, Red Cell Distribution Width 12.7, Platelet Count 429H, Mean Platelet Volume 8.8L, Immature Granulocyte % (Auto) 4, Neutrophils (%) (Auto) 64, Lymphocytes (%) (Auto) 20, Monocytes (%) (Auto) 9, Eosinophils (%) (Auto) 2, Basophils (%) (Auto) 1, Neutrophils # (Auto) 7.1, Lymphocytes # (Auto) 2.2, Monocytes # (Auto) 1.0, Eosinophils # (Auto) 0.2, Basophils # (Auto) 0.1, Immature Granulocyte # (Auto) 0.4H, Sodium Level 133L, Potassium Level 4.1, Chloride Level 103, Carbon Dioxide Level 23, Anion Gap 7, Blood Urea Nitrogen 12, Creatinine 0.67, Estimat Glomerular Filtration Rate 122, BUN/Creatinine Ratio 18, Glucose Level 99, Calcium Level 8.7, Corrected Calcium 9.7, Total Bilirubin 0.7, Aspartate Amino Transf (AST/SGOT) 48H, Alanine Aminotransferase (ALT/SGPT) 45, Alkaline Phosphatase 113, Total Protein 7.1, Albumin 2.8L Microbiology 05/12/21 Gram Stain - Final, Resulted 05/12/21 Anaerobic Culture, Resulted Pending 05/12/21 Surgical Culture - Preliminary, Resulted No growth 05/11/21 MRSA Screen - Final, Complete MRSA not isolated 05/07/21 Gram Stain - Final, Complete 05/07/21 CSF Culture - Final, Complete No growth 05/07/21 Blood Culture - Final, Complete Staphylococcus aureus Home Meds Active HYDROcodone/APAP 5 MG/325 MG TAB (Acetaminophen/Hydrocodone Bitart) 1 Tab Tab 1 Tab PO Q8H Eliquis (Apixaban) 5 Mg Tablet 5 Mg PO BID Metoprolol Succinate 25 Mg Tab.er.24h 25 Mg PO DAILY Daptomycin 500 Mg Vial 500 Mg IV DAILY 35 Days Reported Men's 50 Plus Multivitamin Tab (Multivit-Min/Folic/Vit K/Lycop) 1 Each Tablet 1 Each PO DAILY Vitamin B-12 (Cyanocobalamin (Vitamin B-12)) 1,000 Mcg Tablet 1,000 Mcg PO DAILY Neurontin (Gabapentin) 300 Mg Capsule 900 Mg PO TID TAKES 3 (300MG) CAPS Xalatan (Latanoprost) 2.5 Ml Drops 1 Drop OU HS Meloxicam 15 Mg Tablet 15 Mg PO HS Acetaminophen 500 Mg Tablet 500-1,000 Mg PO Q8H PRN Tizanidine HCl 2 Mg Tablet 2 Mg PO BID PRN Warfarin Sodium 7.5 Mg Tablet 7.5 Mg PO HS Trelegy Ellipta 100-62.5-25 (Fluticasone/Umeclidin/Vilanter) 1 Each Blst.w.dev 1 Each IH DAILY Timolol Maleate 0.5% (Timolol Maleate) 5 Ml Drops 1 Drop OU DAILY Flomax (Tamsulosin HCl) 0.4 Mg Cap 0.8 Mg PO HS TAKES 2 (0.4MG) TABS Paroxetine HCl 30 Mg Tablet 60 Mg PO HS TAKES 2 (30MG) TABS Nortriptyline HCl 75 Mg Capsule 75 Mg PO HS Montelukast Sodium 10 Mg Tablet 10 Mg PO HS Lisinopril 5 Mg Tablet 5 Mg PO DAILY Fluticasone Propionate 16 Gm [place].susp 1-2 Sprays NSEACH DAILY Atorvastatin Calcium 20 Mg Tablet 20 Mg PO DAILY Proair Hfa (Albuterol Sulfate) 1 Puff Puff 2 Puff IH Q4H PRN Assessment/Pt Instructions [facility] in 1 week Discharge Planning: <30 minutes discharge planning Discharge Instructions Discharge Diet: No Restrictions Activity as Tolerated: Yes Discharge Physical Examination Vital Signs Vital Signs Date Time Temp Pulse Resp B/P (MAP) Pulse Ox O2 Delivery O2 Flow Rate FiO2 05/14/21 11:20 36.3 83 18 116/79 (91) 99 Room Air 05/13/21 20:09 0.00 05/09/21 12:04 100 General Appearance: No Apparent Distress, WD/WN, Chronically ill, Thin Respiratory: Lungs Clear Cardiovascular: Regular Rate, Rhythm Neurologic/Psychiatric: Alert, Oriented x3 Allergies: Coded Allergies: morphine (Unverified Allergy, Severe, pt can take Lortab, 05/11/21) RESP. ISSUES peanut (Unverified Allergy, Severe, 03/31/21) BREATHING ISSUES sumatriptan (Unverified Allergy, Severe, 03/31/21) BREATHING ISSUES Discharge Summary Date of Admission May 07, 2021 at 21:20 Date of Discharge Discharge Date: May 14, 2021 Admission Diagnosis 1. Sepsis due to staph aureus sensitivity pending will initiate vancomycin as I was just contacted by microbiology that they are growing what appears to be staph aureus in all blood cultures. Secondary delirium appears to be improved. Will need to assume meningitis considering 150 a white cells neutrophil predominance low glucose and high protein do have an encephalitis panel pending. As there is no clear infectious source despite unremarkable cardiovascular examination to auscultation will obtain echocardiogram and evaluation for any evidence for endocarditis. 2. 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 Comfort Measures/ Time spent on discussion (min): 0 Discharge Diagnosis Swing bed in [place] tomorrow FREDDIE MESA DO May 14, 2021 11:27
[2021-05-14] MEDS ORDERED: APIXABAN 5 MG (ELIQUIS) TABLET PO SCH (11:30)
[2021-05-14] MEDS ORDERED: ASPI-1238 PO (13:02)
--- NOTE | 2021-05-14 13:15 | Progress Note ---
CHIDI CINTRON MED STUDENT 05/14/21 1315: Progress Note This Aleksey a 56 yo male on day 8 of his hospital stay with the chief complaint of AMS and encephalitis being discharged either home or to swing bed at [place] depending on qualifications. He presented to the emergency room on 05/07 via [facility] with complaints of generalized pain. He described having intermittent problems with shoulder pain and chest pain over the last several days. He had been evaluated in the clinic and in the ER in [place] prior to transfer to [facility]. No significant abnormalities were identified. Patient was a poor historian and seems somewhat confused in the ED. He has a history of prescription substance abuse but according to family he is not presently using to their knowledge. Family reported that he had not seemed himself for the past couple of days. He has a history of IgG hypogammaglobulinemia and receives IgG infusions monthly in [place] by Dr. Cisco Pettit as his PCP. Family reports th at he is normally intelligent in his conversation and that his level of communication upon admission was not typical. A lumbar puncture was performed and revealed no growth. Peripheral blood cultures were obtained and revealed positive for Staph aureus growth. Antibiotic treatment of ceftriaxone and vancomycin was provided throughout stay. His AMS continued to improve. Surgery was consulted to remove port. CXR and chest/thoracic CTA was completed upon admission and revealed no acute cardiopulmonary process. With continued complaints of back pain a lumbar MRI was completed and revealed multiloculated left psoas abscess and degenerative changes at L3-L4. Pt was given toradol, hydrocodone, gabapentin, and mobic in an effort to control the pain. On 05/12 cardiology performed a NIKOLAI which revealed no valvular vegetation/endocarditis and an LVEF of 50-55%. Pt worked with PT/OT for multiple days to recover strength. During the last couple of days he began experiencing left forearm and hand weakness secondary to encephalitis. He lives with his parents. Upon discharge he will be prescribe pain medication and a schedule to receive 5 more weeks of IV antibiotics. KELSEY CUELLO DO 05/15/21 0631: Supervisory-Addendum Brief Verification & Attestation Participated in pt care: history, MDM, physical Personally performed: exam, history, MDM, supervision of care Care discussed with: Medical Student Procedures: n/a Results interpretation: Verified all documentation Verification and Attestation of Medical Student E/M Service A medical student performed and documented this service in my presence. I reviewed and verified all information documented by the medical student and made modifications to such information, when appropriate. I personally performed the physical exam and medical decision making. Kelsey Cuello, May 15, 2021,06:31 CHIDI CINTRON MED STUDENT May 14, 2021 13:15 KELSEY CUELLO DO May 15, 2021 06:31
== END 2021-05-14 14:10 | disposition home or self-care (01) | DRG 871 ==
LOC: EDUNIT# 11:19 → ER 11:21 → ICU 21:20 → 4TH 05-09 16:17
PROVIDERS: ADMIT Internal Medicine; ATTEND Internal Medicine
PROC: 009U3ZX Drainage of Spinal Canal, Percutaneous Approach, Diagnostic (ICD-10-PCS; 2021-05-07)
PROC: 0JPT0WZ Removal of Totally Implantable Vascular Access Device from Trunk Subcutaneous Tissue and Fascia, Open Approach (ICD-10-PCS; principal; 2021-05-12 12:19)
DX: A41.02 Sepsis due to Methicillin resistant Staphylococcus aureus (principal); G04.90 Encephalitis and encephalomyelitis, unspecified; K68.12 Psoas muscle abscess; I63.81 Other cerebral infarction due to occlusion or stenosis of small artery; D80.1 Nonfamilial hypogammaglobulinemia; M86.9 Osteomyelitis, unspecified; I42.9 Cardiomyopathy, unspecified; M46.46 Discitis, unspecified, lumbar region; M47.816 Spondylosis without myelopathy or radiculopathy, lumbar region; G83.24 Monoplegia of upper limb affecting left nondominant side; M48.061 Spinal stenosis, lumbar region without neurogenic claudication; Z20.822 Contact with and (suspected) exposure to COVID-19; J44.9 Chronic obstructive pulmonary disease, unspecified; F32.9 Major depressive disorder, single episode, unspecified; R35.0 Frequency of micturition; I10 Essential (primary) hypertension; R31.9 Hematuria, unspecified; R41.0 Disorientation, unspecified; J32.9 Chronic sinusitis, unspecified; K59.00 Constipation, unspecified; E87.6 Hypokalemia; E83.39 Other disorders of phosphorus metabolism; F41.9 Anxiety disorder, unspecified; E83.51 Hypocalcemia; Z87.891 Personal history of nicotine dependence; Z79.01 Long term (current) use of anticoagulants; Z88.6 Allergy status to analgesic agent; R07.89 Other chest pain
CPT/HCPCS: 36415; 36569; 70450; 71045; 71275; 72020; 72158; 76937; 80048; 80053; 80061; 80202; 80306; 80320; 81000; 82140; 82945; 83605; 83735; 83874; 84100; 84145; 84157; 84484; 85025; 85379; 85610; 85730; 86141; 87040; 87070; 87075; 87077; 87081; 87186; 87205; 87636; 88300; 89051; 93005; 93041; 93306; 93312; 93320; 93325; 94640; 94760; 96361; 96374; 96375; 99291

== ENCOUNTER 2021-06-07 09:02 | Emergency (ER) | payer MEDICARE, MEDICAID ==
[~2021-06-07] VITALS: Ht 193 cm; Wt 92.0 kg
[~2021-06-07 09:02] MED LIST changes: +ACET-93 PO; +ACHD5005 PO; +APIX5TAB PO; +ASPI-1238 PO; +CYAN-41 PO; +DAPT500V3 IV; +LATA2.5D19 OU; +MELO15TA39 PO; +MTP25TSR PO; +MULT-1104 PO; +TIZA-169 PO
[2021-06-07] MEDS ORDERED: VANCOMYCIN INJECTION 2,000 MG in NS IV 500 ML 500 ML IV ONE (09:14)
[2021-06-07] MEDS ORDERED: NS IV 1000 ML 1,000 ML IV SCH (09:15)
[2021-06-07] MEDS ORDERED: CEFEPIME INJECTION 1,000 MG in WATER (STERILE) FOR INJECTION 10 ML IV ONE ×2 (09:15→17:30)
[2021-06-07] MEDS ORDERED: fentaNYL INJ 100 MCG/2 ML AMP IVP ONE ×4 (09:15→14:00)
--- NOTE | 2021-06-07 09:21 | ED Back Pain ---
General Chief Complaint: Back Problems Stated Complaint: WEAKNESS Source of Information: Patient Exam Limitations: No Limitations History of Present Illness Date Seen by Provider: Jun 07, 2021 Time Seen by Provider: 08:53 Initial Comments Patient to the ER by [facility] with chief complaint of progressively and worsening back pain, bilateral leg cramps and weakness and falls. He says has been practically bedbound for the past several days. He has a history of stroke recently and some residual left-sided upper extremity deficits. He also had a viral meningitis and apparently a bloodstream infection. He was to be on 6 weeks of IV antibiotics and was getting them through [facility] however they switched him over to home health. On of last week, 4 days ago was his last dose of antibiotics. [facility] told him that they would not be able to do his antibiotics and he has not restarted them anywhere else. He has a left arm PICC line in place. He is denying any fever. No nausea or vomiting. No diarrhea constipation. Is been using hydrocodone 5 x 325 every 8 hours ar [id number] with his last dose being about 3 in the morning. He says it works pretty well as long as he is not moving around for about 4 hours. He has made an appointment to follow-up with Ortho [address] [place] [address] and they are setting him up for a back surgery when he is done with all his antibiotics. He also noticed some new abrasions to his right knee from his falls and for the past 2 days he has had increased swelling and pain in his right great toe. No history of gout. Patient is on Eliquis Allergies and Home Medications Allergies Coded Allergies: morphine (Unverified Allergy, Severe, pt can take Lortab, 05/11/21) RESP. ISSUES peanut (Unverified Allergy, Severe, 03/31/21) BREATHING ISSUES sumatriptan (Unverified Allergy, Severe, 03/31/21) BREATHING ISSUES Patient Home Medication List Home Medication List Reviewed: Yes Acetaminophen (Acetaminophen) 500 Mg Tablet, 500-1,000 MG PO Q8H PRN for PAIN- MILD (1-4), (Reported) Entered as Reported by: EUGENE GIVENS on 05/10/21 1306 Albuterol Sulfate (Proair Hfa) 1 Puff Puff, 2 PUFF IH Q4H PRN for SHORTNESS OF BREATH, (Reported) Entered as Reported by: MARY LALA on 03/29/21 1414 Apixaban (Eliquis) 5 Mg Tablet, 5 MG PO BID Prescribed by: FREDDIE MESA on 05/14/21 1125 Aspirin (Aspirin EC) 81 Mg Tablet.dr, 81 MG PO DAILY Prescribed by: FREDDIE MESA on 05/14/21 1302 Atorvastatin Calcium (Atorvastatin Calcium) 20 Mg Tablet, 20 MG PO DAILY, (Reported) Entered as Reported by: MARY LALA on 03/29/21 1414 Cyanocobalamin (Vitamin B-12) (Vitamin B-12) 1,000 Mcg Tablet, 1,000 MCG PO DAILY, (Reported) Entered as Reported by: EUGENE GIVENS on 05/10/21 1306 Daptomycin (Daptomycin) 500 Mg Vial, 500 MG IV DAILY Prescribed by: FREDDIE MESA on 05/14/21 1013 Fluticasone Propionate (Fluticasone Propionate) 16 Gm [place].susp, 1-2 SPRAYS NSEACH DAILY, (Reported) Entered as Reported by: MARY LALA on 03/29/21 1414 Fluticasone/Umeclidin/Vilanter (Trelegy Ellipta 100-62.5-25) 1 Each Blst.w.dev, 1 EACH IH DAILY, (Reported) Entered as Reported by: MARY LALA on 03/29/21 1414 Gabapentin (Neurontin) 300 Mg Capsule, 900 MG PO TID, (Reported) Entered as Reported by: EUGENE GIVENS on 05/10/21 1306 Hydrocodone/Acetaminophen (Hydrocodone-Acetamin 5-325 mg) 1 Each Tablet, 1 TAB PO TID PRN for PAIN-MODERATE (5-7) Prescribed by: FREDDIE MESA on 05/14/21 1615 Latanoprost (Xalatan) 2.5 Ml Drops, 1 DROP OU HS, (Reported) Entered as Reported by: EUGENE GIVENS on 05/10/21 1306 Lisinopril (Lisinopril) 5 Mg Tablet, 5 MG PO DAILY, (Reported) Entered as Reported by: MARY LALA on 03/29/21 1414 Meloxicam (Meloxicam) 15 Mg Tablet, 15 MG PO HS, (Reported) Entered as Reported by: EUGENE GIVENS on 05/10/21 1306 Metoprolol Succinate (Metoprolol Succinate) 25 Mg Tab.er.24h, 25 MG PO DAILY Prescribed by: FREDDIE MESA on 05/14/21 1125 Montelukast Sodium (Montelukast Sodium) 10 Mg Tablet, 10 MG PO HS, (Reported) Entered as Reported by: MARY LALA on 03/29/21 1414 Multivit-Min/Folic/Vit K/Lycop (Men's 50 Plus Multivitamin Tab) 1 Each Tablet, 1 EACH PO DAILY, (Reported) Entered as Reported by: EUGENE GIVENS on 05/10/21 1306 Nortriptyline HCl (Nortriptyline HCl) 75 Mg Capsule, 75 MG PO HS, (Reported) Entered as Reported by: MARY LALA on 03/29/21 141 Paroxetine HCl (Paroxetine HCl) 30 Mg Tablet, 60 MG PO HS, (Reported) Entered as Reported by: MARY LALA on 03/29/21 141 Tamsulosin HCl (Flomax) 0.4 Mg Cap, 0.8 MG PO HS, (Reported) Entered as Reported by: MARY LALA on 03/29/21 141 Timolol Maleate (Timolol Maleate 0.5%) 5 Ml Drops, 1 DROP OU DAILY, (Reported) Entered as Reported by: MARY LALA on 03/29/21 141 Tizanidine HCl (Tizanidine HCl) 2 Mg Tablet, 2 MG PO BID PRN for MUSCLE SPASMS, (Reported) Entered as Reported by: MIGUEL VÁZQUEZ on 05/08/212104 Review of Systems Constitutional: chills, diaphoresis, fever, malaise, weakness EENTM: No eye pain Respiratory: No cough, No short of breath Cardiovascular: No chest pain, No palpitations Gastrointestinal: No abdominal pain, No nausea, No vomiting Genitourinary: No discharge, No dysuria Musculoskeletal: No back pain, No joint pain; neck pain Skin: No pruritus, No rash Psychiatric/Neurological: Headache All Other Systems Reviewed Negative Unless Noted: Yes Past Aqkmxlv-Ciydmf-Fnsjed Hx Patient Social History Tobacco Use?: No Use of E-Cig and/or Vaping dev: No Alcohol Use?: No Immunizations Up To Date Second COVID19 Vaccination Rasheed: 3RD DOSE 05/05/21 Seasonal Allergies Seasonal Allergies: No Past Medical History Surgery/Hospitalization HX: PT HAD 3RD MODERNA VACCINE 2 DAYS PRIOR, IS UNABLE TO COMMUNICATE BUT DOES SAY YES WHEN CALL HIS NAME Surgeries: Yes Abdominal, Gallbladder, Orthopedic Respiratory: No Cardiac: Yes Hypertension Neurological: Yes (confused when he came in) Genitourinary: No Prostate Problems Gastrointestinal: Yes Diverticulosis, Polyps, Gall Bladder Disease Musculoskeletal: Yes (?? abscess around psoas ms) Degenerate Disk Disease Endocrine: No HEENT: Yes Cataract Hearing Impairment: Denies Cancer: No Psychosocial: Yes Anxiety, Depression Integumentary: No Blood Disorders: Yes (HYPOGAMULGLOBULINEMIA) Adverse Reaction/Blood Tranf: No Family Medical History Cancer Physical Exam Vital Signs Vital Signs - First Documented 06/07/21 06/07/21 09:02 09:11 Temp 36.9 Pulse 115 Resp 20 B/P (MAP) 148/94 Pulse Ox 97 O2 Delivery Room Air FiO2 97 Capillary Refill : Less Than 3 Seconds Height, Weight, BMI Height: '" Weight: lbs. oz. kg; 25.63 BMI Method: General Appearance: Anxious, Chronically ill HEENT: PERRL/EOMI, Pharynx Normal, Moist Mucous Membranes Neck: Full Range of Motion, Normal Inspection, Non Tender Cardiovascular: Regular Rate, Rhythm, No Edema, Normal Peripheral Pulses Respiratory: Chest Non Tender, Lungs Clear, Normal Breath Sounds, No Accessory Muscle Use, No Respiratory Distress Peripheral Pulses: 2+ Radial Pulses (R), 2+ Radial Pulses (L) Gastrointestinal: Normal Bowel Sounds, Non Tender, Soft Back: Normal Inspection, Vertebral Tenderness (lumbar) Extremity: Normal Capillary Refill, Normal Inspection, Non Tender, No Pedal Edema Neurologic/Psychiatric: Alert, Oriented x3, Normal Mood/Affect, storekeeper helper II-XII Norm as Tested Skin: Normal Color, Warm/Dry Progress/Results/Core Measures Results/Orders Lab Results Laboratory Tests Test 06/07/21 09:13 06/07/21 10:05 06/07/21 12:12 06/07/21 15:57 Range/Units Urine Color YELLOW Urine Clarity CLEAR Urine pH 6.0 5-9 Urine Specific Josephine >=1.030 1.016-1.022 Urine Protein TRACE H NEGATIVE Urine Glucose (UA) NEGATIVE NEGATIVE Urine Ketones 2+ H NEGATIVE Urine Nitrite NEGATIVE NEGATIVE Urine Bilirubin NEGATIVE NEGATIVE Urine Urobilinogen 0.2 < = 1.0 MG/DL Urine Leukocyte Esterase NEGATIVE NEGATIVE Urine RBC (Auto) 2+ H NEGATIVE Urine RBC 10-25 H /HPF Urine WBC 0-2 /HPF Urine Squamous Epithelial Cells RARE /HPF Urine Crystals NONE /LPF Urine Bacteria TRACE /HPF Urine Casts NONE /LPF Urine Mucus SMALL H /LPF Urine Culture Indicated CULTURE PENDING White Blood Count 22.4 H 4.3-11.0 10^3/uL Red Blood Count 4.07 L 4.30-5.52 10^6/uL Hemoglobin 11.5 L 13.3-17.7 g/dL Hematocrit 36 L 40-54 % Mean Corpuscular Volume 89 80-99 fL Mean Corpuscular Hemoglobin 28 25-34 pg Mean Corpuscular Hemoglobin Concent 32 32-36 g/dL Red Cell Distribution Width 12.2 10.0-14.5 % Platelet Count 658 H 130-400 10^3/uL Mean Platelet Volume 8.4 L 9.0-12.2 fL Immature Granulocyte % (Auto) 1 % Neutrophils (%) (Auto) 85 H 42-75 % Lymphocytes (%) (Auto) 9 L 12-44 % Monocytes (%) (Auto) 5 0-12 % Eosinophils (%) (Auto) 0 0-10 % Basophils (%) (Auto) 0 0-10 % Neutrophils # (Auto) 19.0 H 1.8-7.8 10^3/uL Lymphocytes # (Auto) 1.9 1.0-4.0 10^3/uL Monocytes # (Auto) 1.1 H 0.0-1.0 10^3/uL Eosinophils # (Auto) 0.1 0.0-0.3 10^3/uL Basophils # (Auto) 0.1 0.0-0.1 10^3/uL Immature Granulocyte # (Auto) 0.2 H 0.0-0.1 10^3/uL Neutrophils % (Manual) 87 % Lymphocytes % (Manual) 8 % Monocytes % (Manual) 4 % Eosinophils % (Manual) 0 % Basophils % (Manual) 0 % Band Neutrophils 1 % Blood Morphology Comment NORMAL Prothrombin Time 16.0 H 12.2-14.7 SEC INR Comment 1.2 0.8-1.4 Activated Partial Thromboplast Time 54 H 24-35 SEC Sodium Level 134 L 135-145 MMOL/L Potassium Level 4.0 3.6-5.0 MMOL/L Chloride Level 100 98-107 MMOL/L Carbon Dioxide Level 21 21-32 MMOL/L Anion Gap 13 5-14 MMOL/L Blood Urea Nitrogen 12 7-18 MG/DL Creatinine 0.69 0.60-1.30 MG/DL Estimat Glomerular Filtration Rate 118 BUN/Creatinine Ratio 17 Glucose Level 99 70-105 MG/DL Lactic Acid Level 1.15 0.50-2.00 MMOL/L Uric Acid 3.8 2.6-7.2 MG/DL Calcium Level 9.2 8.5-10.1 MG/DL Corrected Calcium 10.0 8.5-10.1 MG/DL Total Bilirubin 0.7 0.1-1.0 MG/DL Aspartate Amino Transf (AST/SGOT) 38 H 5-34 U/L Alanine Aminotransferase (ALT/SGPT) 31 0-55 U/L Alkaline Phosphatase 168 H 40-136 U/L Total Protein 8.9 H 6.4-8.2 GM/DL Albumin 3.0 L 3.2-4.5 GM/DL SARS-CoV-2 RNA (RT-PCR) Not Detected Not Detecte Glucometer 32 *L 70-110 MG/DL Test 06/07/21 16:56 Range/Units Glucometer 115 H 70-110 MG/DL My Orders Orders - RITO EVANS Ct Head/Cervical Spine Wo (06/07/21 09:14) Ct Thoracic/Lumbar Spine Wo (06/07/21 09:14) Cbc With Automated Diff (06/07/21 09:14) Comprehensive Metabolic Panel (06/07/21 09:14) Blood Culture (06/07/21 09:14) Sputum Culture (06/07/21 09:14) Urinalysis (06/07/21 09:14) Urine Culture (06/07/21 09:14) Protime With Inr (06/07/21 09:14) Partial Thromboplastin Time (06/07/21 09:14) Chest 1 View, Ap/Pa Only (06/07/21 09:14) Ed Iv/Invasive Line Start (06/07/21 09:14) Ed Iv/Invasive Line Start (06/07/21 09:14) Vital Signs Adult Sepsis Patie Q15M (06/07/21 09:14) O2 (06/07/21 09:14) Remove Rings In Anticipation O (06/07/21 09:14) Lactic Acid Analyzer (06/07/21 09:14) Ns Iv 1000 Ml (Sodium Chloride 0.9%) (06/07/21 09:15) Cefepime Injection (Maxipime Injection) (06/07/21 09:15) Vancomycin Injection (Vancomycin Injecti (06/07/21 09:14) Fentanyl Inj (Sublimaze Injection) (06/07/21 09:15) Foot, Right, 3 View (06/07/21 09:21) Uric Acid (06/07/21 09:21) Manual Differential (06/07/21 10:05) Fentanyl Inj (Sublimaze Injection) (06/07/21 11:30) Orphenadrine Inj (Ed Only) (Norflex Inje (06/07/21 11:30) Covid 19 Inhouse Test (06/07/21 12:11) Fentanyl Inj (Sublimaze Injection) (06/07/21 12:30) Acetaminophen Tablet (Tylenol Tablet) (06/07/21 12:30) Lactated Ringers (Lr 1000 Ml Iv Solution (06/07/21 14:00) Ketamine Syringe (Ketamine Syringe) (06/07/21 14:00) Fentanyl Inj (Sublimaze Injection) (06/07/21 14:00) Ibuprofen Tablet (Motrin Tablet) (06/07/21 15:30) D50w (Emergency) Syringe (Dextrose 50% 5 (06/07/21 16:00) Accucheck Stat ONCE (06/07/21 15:59) General/Regular (06/07/21 Dinner) Accucheck Stat ONCE (06/07/21 16:20) Accucheck Stat ONCE (06/07/21 17:29) Cefepime Injection (Maxipime Injection) (06/07/21 17:30) Medications Given in ED Current Medications Medications Dose Ordered Sig/Fede Route Start Time Stop Time Status Last Admin Dose Admin Acetaminophen 1,000 mg ONCE ONCE PO 06/07/21 12:30 06/07/21 12:31 DC 06/07/21 12:29 1,000 MG Cefepime HCl 1000 mg/Sterile Water 10 ml @ 200 mls/hr ONCE ONCE IV 06/07/21 09:15 06/07/21 09:19 DC 06/07/21 10:28 200 MLS/HR Cefepime HCl 1000 mg/Sterile Water 10 ml @ 200 mls/hr ONCE ONCE IV 06/07/21 17:30 06/07/21 17:32 DC 06/07/21 18:06 200 MLS/HR Dextrose 25 ml ONCE ONCE IV 06/07/21 16:00 06/07/21 16:01 DC 06/07/21 16:02 25 ML Fentanyl Citrate 50 mcg ONCE ONCE IVP 06/07/21 09:15 06/07/21 09:19 DC 06/07/21 10:20 50 MCG Fentanyl Citrate 50 mcg ONCE ONCE IVP 06/07/21 12:30 06/07/21 12:31 DC 06/07/21 12:31 50 MCG Fentanyl Citrate 75 mcg ONCE ONCE IVP 06/07/21 14:00 06/07/21 14:01 DC 06/07/21 14:03 75 MCG Ibuprofen 800 mg ONCE ONCE PO 06/07/21 15:30 06/07/21 15:31 NJ 06/07/21 15:33 800 MG Ketamine HCl 25 mg ONCE ONCE IV 06/07/21 14:00 06/07/21 14:01 NJ 06/07/21 14:10 25 MG Orphenadrine Citrate 60 mg ONCE ONCE IV 06/07/21 11:30 06/07/21 11:31 DC 06/07/21 11:31 60 MG Vancomycin HCl 2000 mg/Sodium Chloride 500 ml @ 260 mls/hr 0914 ONCE IV 06/07/21 09:14 06/07/21 11:09 DC 06/07/21 10:33 260 MLS/HR Vital Signs/I&O 06/07/21 06/07/21 06/07/21 06/07/21 09:02 09:02 09:11 15:33 Temp 36.9 36.9 37.7 Pulse 115 115 Resp 20 B/P (MAP) 148/94 148/94 (112) Pulse Ox 97 O2 Delivery Room Air Room Air Room Air FiO2 97 Blood Pressure Mean: 112 Progress Progress Note #1: Time: 12:02 Progress Note Fentanyl 50 mcg and Norflex. 20 ml/kg IVF. Progress Note #2: Time: 16:00 Progress Note Patient was given some ketamine and fentanyl for his pain which seemed to help however he was behaving a little oddly and a glucose was obtained demonstrating 32. We gave him half an amp of D50 and ordered a meal. We will recheck a blood sugar about half an hour to 1 hour after he eats. Suspect his hypoglycemia is due to his infection. Diagnostic Imaging Diagonstic Imaging: Xray Plain Films/CT/US/NM/MRI: other (right foot) Comments [facility] [place] NAME: ROCHELLE MOELLER [facility] REC#: [id number] PT STATUS: REG ER : 1965 PHYSICIAN: RITO EVANS MD ADMIT DATE: 06/07/21/ER Draft Date of Exam:06/07/21 FOOT, RIGHT, 3 VIEW INDICATION: Right foot pain. TECHNIQUE: AP, oblique, and lateral views of the right foot are obtained. FINDINGS: No fracture or acute bony abnormality is seen. Joint spaces are unremarkable. There is no erosive bony lesion. IMPRESSION: Negative right foot. Dictated on workstation # [id number] Dict: 06/07/21 1020 Trans: 06/07/21 1023 [id number] Interpreted by: ROCHELLE AZEVEDO MD Electronically signed by: Reviewed: Reviewed by Me Diagonstic Imaging: CT Plain Films/CT/US/NM/MRI: c-spine Comments [facility] [place] NAME: ROCHELLE MOELLER [facility] REC#: [id number] PT STATUS: REG ER : 1965 PHYSICIAN: RITO EVANS MD ADMIT DATE: 06/07/21/ER Draft Date of Exam:06/07/21 CT HEAD/CERVICAL SPINE WO PROCEDURE: CT head and CT cervical spine without contrast. TECHNIQUE: Multiple contiguous axial images were obtained through the brain and cervical spine without the use of intravenous contrast. Sagittal and coronal reformations through the cervical spine were then performed. Auto Exposure Controls were utilized during the CT exam to meet ALARA standards for radiation dose reduction. INDICATION: Trauma. COMPARISON: This study is correlated with the CT head of 05/07/2021. FINDINGS: HEAD: A chronic small subcentimeter focus of hypodensity in the right medial temporal lobe is unchanged. This may be an old lacunar infarct or an incidental Virchow-Levar space but is stable and chronic. The cerebral cortical volume is stable. There is no hydrocephalus. No calvarial fracture deformity. There is no intracerebral hemorrhage. No focal or generalized cerebral edema. No evidence for an elevation of the intracranial pressures. The orbits and sinuses are nonacute where visualized. The basilar cisterns are patent. There has been no change. CT CERVICAL SPINE: There is retrolisthesis of C6 on C7. The posterior cortices are offset about 4 mm. There is widening of the posterior aspect of the C6-C7 disc space as well as widening of the bilateral C6-C7 facets without dain dislocation or true perching. There is widening and some splaying of the spinous processes at the C6-C7 facet. The C6 vertebral body as well as its inferior greater than superior endplate show heterogeneous density, ill-definition, and abnormal lucencies involving the anterior and posterior cortex. A similar appearance also involves the C7 superior endplate. There is prominence of the lower cervical paraspinal soft tissues. The appearance could be on a neoplastic or infectious basis. Further workup with an emergent pre and post contrast cervical spinal MRI would be recommended. The malalignment, bony fragmentation, and retrolisthesis at the C6-C7 levels result in severe canal stenosis. There is at least moderate biforaminal narrowing. At C5-C6, there are degenerative changes with moderate left and mild right foraminal stenosis and likely mild central canal narrowing. The craniocervical junction appears normal and the remaining levels show no other significant finding. The central skull base appears intact. IMPRESSION: CT HEAD: Stable chronic findings with no acute or post traumatic sequelae. CERVICAL CT: There are abnormalities epicentered at the C6 vertebral body where there is malalignment. There is severe stenosis of the canal and foramina with abnormal paraspinal density, splaying of the posterior elements, and widening of the facet joints. An underlying infectious process owing to osteomyelitis and intervertebral discitis could not be differentiated from neoplastic infiltration. A correlative contrast-enhanced MRI is recommended as further evaluation. By imaging, infection is favored, correlate clinically. The malalignments themselves may reflect ligamentous injury from an acute superimposed trauma but this could also be better characterized at MRI. These results will be discussed with the Emergency Room physician. Dictated on workstation # [id number] Dict: 06/07/21 0955 Trans: 06/07/21 1015 [id number] Interpreted by: SONY WHITE Electronically signed by: Reviewed: Reviewed by Me Diagonstic Imaging: CT Plain Films/CT/US/NM/MRI: other (lumbar thorax) Comments [facility] [place] NAME: ROCHELLE MOELLER REC#: [id number] PT STATUS: REG ER : 1965 PHYSICIAN: RITO EVANS MD ADMIT DATE: 06/07/21/ER Signed Date of Exam:06/07/21 CT THORACIC/LUMBAR SPINE WO PROCEDURE: CT thoracic and lumbar spine without contrast. TECHNIQUE: Multiple contiguous axial images were obtained through the thoracic and lumbar spine without the use of intravenous contrast. Sagittal and coronal reformations were then performed. All CT scans use one or more of the following dose optimizing techniques: automated exposure control, MA and/or KvP adjustment based on a patient size and exam type, or iterative reconstruction. INDICATION: Multiple falls. Increasing discoordination. COMPARISON: 05/11/2021. FINDINGS: No acute fracture or dislocation is seen in the thoracic spine. There is slight right convexity curvature of the thoracic spine. The vertebral body heights and disc spaces are well-maintained. No suspicious focal osseous lesions. A small amount of endplate degenerative changes are present at the anterior aspect of the T9-T10 level. No high density material seen within the spinal canal. No evidence of acute spinal canal stenosis. No significant degenerative changes are seen in the thoracic spine. The included lungs demonstrate dependent atelectasis. The paraspinal soft tissues are unremarkable. There has been interval progression, endplate destruction and sclerosis at the L3-L4 level secondary to sequelae of osteomyelitis/discitis. There has also been progression of disc height loss at this level. No new areas of destructive endplate changes are seen to suggest additional areas of osteomyelitis/discitis. Endplate sclerotic changes are present at the L4-L5 level which appear chronic. There is partial osseous fusion across the L5-S1 level. No acute fracture is identified in the lumbar spine. Prominent disc bulge and facet hypertrophy is seen at the L3-L4 level resulting in severe spinal canal stenosis. The remainder of the lumbar spine demonstrates no evidence of high-grade spinal canal stenosis. There is asymmetric prominence of the left iliopsoas musculature relative to the right with scattered calcifications seen in both iliopsoas. 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 No obvious loculated collection is present on this exam although evaluation is not as sensitive as MRI. IMPRESSION: 1. Progression of endplate destruction at the L3-L4 level, representing sequelae of osteomyelitis/discitis. Subsequent severe spinal canal stenosis is seen at the L3-L4 level. 2. No new areas of osteomyelitis/discitis are seen in the thoracic and lumbar spine. No evidence of acute fracture or dislocation. 3. Asymmetric prominence of the left iliopsoas is relative to the right with scattered calcifications within both iliopsoas vasculature. 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 Dictated by: Dictated on workstation # [id number] Dict: 06/07/21 1016 Trans: 06/07/21 1046 [facility] [id number] Interpreted by: ERIN LOPEZ DO Electronically signed by: ERIN LOPEZ DO 06/07/21 1046 Reviewed: Reviewed by Me Consults : Consulting Physician: FREDDIE MESA DO Consults Notes Discussed the case and she recommends the patient will probably need surgical debridement related to the cervical osteomyelitis and tertiary care center such as [facility] would be appropriate. 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 Menchaca. Departure Impression Primary Impression: Acute osteomyelitis of cervical spine Additional Impressions: Sepsis Qualified Codes: A41.9 - Sepsis, unspecified organism; R65.20 - Severe sepsis without septic shock; G93.40 - Encephalopathy, unspecified Hypoglycemia Disposition: XF [facility] Condition: Stable Transfer Transfer Reason: Exceeds level of care (No infectious disease or appropriate orthopedic surgery for cervical spinal debridement) Time Spoke to Accepting Phy: 13:30 Transfer Progress Notes 1200: Discussed the case with the triage nurse at [facility] and they will call us back. They require a Covid screening swab. 1330: Dr. Brand accepts the patient to [facility]. They expect they will have a bed by tonight. Transfer Time: 18:45 Transfer Facility: [facility] Method of Transfer: EMS Departure-Patient Inst. Referrals: NO,LOCAL PHYSICIAN (PCP) Primary Care Physician [facility] (Family) Primary Care Physician RITO EVANS Jun 07, 2021 09:21
[2021-06-07 09:50] LABS: BILIRUBIN,URINE NEGATIVE (NEGATIVE); CLARITY,URINE CLEAR; COLOR,URINE YELLOW; GLUCOSE, URINE (UA) NEGATIVE (NEGATIVE); KETONES,URINE 2+ (NEGATIVE); LEUKOCYTE ESTERASE ,URINE NEGATIVE (NEGATIVE); NITRITE,URINE NEGATIVE (NEGATIVE); PROTEIN,URINE TRACE (NEGATIVE)
[2021-06-07 09:59] LABS: BACTERIA,URINE TRACE /HPF; WBC,URINE 0-2 /HPF
[2021-06-07 10:00] LABS: SQUAMOUS EPITHELIAL CELL,UR RARE /HPF
--- NOTE | 2021-06-07 10:14 | Diagnostic Imaging Report ---
INDICATION: Low back pain, leg cramps AND sepsis. The lungs are clear. There is no failure pattern, effusion or pneumothorax. No free air beneath the diaphragms. IMPRESSION: No acute finding at frontal chest x-ray. Dictated by: Dictated on workstation # [id number]
--- NOTE | 2021-06-07 10:16 | Diagnostic Imaging Report ---
PROCEDURE: CT head and CT cervical spine without contrast. TECHNIQUE: Multiple contiguous axial images were obtained through the brain and cervical spine without the use of intravenous contrast. Sagittal and coronal reformations through the cervical spine were then performed. Auto Exposure Controls were utilized during the CT exam to meet ALARA standards for radiation dose reduction. INDICATION: Trauma. COMPARISON: This study is correlated with the CT head of 05/07/2021. FINDINGS: HEAD: A chronic small subcentimeter focus of hypodensity in the right medial temporal lobe is unchanged. This may be an old lacunar infarct or an incidental Virchow-Levar space but is stable and chronic. The cerebral cortical volume is stable. There is no hydrocephalus. No calvarial fracture deformity. There is no intracerebral hemorrhage. No focal or generalized cerebral edema. No evidence for an elevation of the intracranial pressures. The orbits and sinuses are nonacute where visualized. The basilar cisterns are patent. There has been no change. CT CERVICAL SPINE: There is retrolisthesis of C6 on C7. The posterior cortices are offset about 4 mm. There is widening of the posterior aspect of the C6-C7 disc space as well as widening of the bilateral C6-C7 facets without dain dislocation or true perching. There is widening and some splaying of the spinous processes at the C6-C7 facet. The C6 vertebral body as well as its inferior greater than superior endplate show heterogeneous density, ill-definition, and abnormal lucencies involving the anterior and posterior cortex. A similar appearance also involves the C7 superior endplate. There is prominence of the lower cervical paraspinal soft tissues. The appearance could be on a neoplastic or infectious basis. Further workup with an emergent pre and post contrast cervical spinal MRI would be recommended. The malalignment, bony fragmentation, and retrolisthesis at the C6-C7 levels result in severe canal stenosis. There is at least moderate biforaminal narrowing. At C5-C6, there are degenerative changes with moderate left and mild right foraminal stenosis and likely mild central canal narrowing. The craniocervical junction appears normal and the remaining levels show no other significant finding. The central skull base appears intact. IMPRESSION: CT HEAD: Stable chronic findings with no acute or post traumatic sequelae. CERVICAL CT: There are abnormalities epicentered at the C6 vertebral body where there is malalignment. There is severe stenosis of the canal and foramina with abnormal paraspinal density, splaying of the posterior elements, and widening of the facet joints. An underlying infectious process owing to osteomyelitis and intervertebral discitis could not be differentiated from neoplastic infiltration. A correlative contrast-enhanced MRI is recommended as further evaluation. By imaging, infection is favored, correlate clinically. The malalignments themselves may reflect ligamentous injury from an acute superimposed trauma but this could also be better characterized at MRI. These results will be discussed with the Emergency Room physician. Dictated by: Dictated on workstation # [id number]
[2021-06-07 10:21] LABS: BASOPHILS # (AUTO) 0.1 10^3/uL (0.0-0.1); BASOPHILS % (AUTO) 0 % (0-10); EOSINOPHILS # (AUTO) 0.1 10^3/uL (0.0-0.3); EOSINOPHILS % (AUTO) 0 % (0-10); HEMATOCRIT 36 % (40-54); HEMOGLOBIN 11.5 g/dL (13.3-17.7); LYMPHOCYTES # (AUTO) 1.9 10^3/uL (1.0-4.0); LYMPHOCYTES % (AUTO) 9 % (12-44); MEAN CORPUSCULAR HEMOGLOBIN 28 pg (25-34); MEAN CORPUSCULAR HGB CONC 32 g/dL (32-36); MEAN CORPUSCULAR VOLUME 89 fL (80-99); MEAN PLATELET VOLUME 8.4 fL (9.0-12.2); MONOCYTES # (AUTO) 1.1 10^3/uL (0.0-1.0); MONOCYTES % (AUTO) 5 % (0-12); NEUTROPHILS % (AUTO) 85 % (42-75); PLATELET COUNT 658 10^3/uL (130-400); WHITE BLOOD COUNT 22.4 10^3/uL (4.3-11.0)
--- NOTE | 2021-06-07 10:24 | Diagnostic Imaging Report ---
INDICATION: Right foot pain. TECHNIQUE: AP, oblique, and lateral views of the right foot are obtained. FINDINGS: No fracture or acute bony abnormality is seen. Joint spaces are unremarkable. There is no erosive bony lesion. IMPRESSION: Negative right foot. Dictated by: Dictated on workstation # [id number]
[2021-06-07 10:32] LABS: CALCIUM 9.2 MG/DL (8.5-10.1)
[2021-06-07 10:33] LABS: TOTAL PROTEIN 8.9 GM/DL (6.4-8.2)
[2021-06-07 10:35] LABS: BILIRUBIN,TOTAL 0.7 MG/DL (0.1-1.0)
[2021-06-07 10:37] LABS: CREATININE SERUM 0.69 MG/DL (0.60-1.30)
[2021-06-07 10:38] LABS: INR 1.2 (0.8-1.4)
[2021-06-07 10:40] LABS: URIC ACID 3.8 MG/DL (2.6-7.2)
--- NOTE | 2021-06-07 10:45 | Diagnostic Imaging Report ---
PROCEDURE: CT thoracic and lumbar spine without contrast. TECHNIQUE: Multiple contiguous axial images were obtained through the thoracic and lumbar spine without the use of intravenous contrast. Sagittal and coronal reformations were then performed. All CT scans use one or more of the following dose optimizing techniques: automated exposure control, MA and/or KvP adjustment based on a patient size and exam type, or iterative reconstruction. INDICATION: Multiple falls. Increasing discoordination. COMPARISON: 05/11/2021. FINDINGS: No acute fracture or dislocation is seen in the thoracic spine. There is slight right convexity curvature of the thoracic spine. The vertebral body heights and disc spaces are well-maintained. No suspicious focal osseous lesions. A small amount of endplate degenerative changes are present at the anterior aspect of the T9-T10 level. No high density material seen within the spinal canal. No evidence of acute spinal canal stenosis. No significant degenerative changes are seen in the thoracic spine. The included lungs demonstrate dependent atelectasis. The paraspinal soft tissues are unremarkable. There has been interval progression, endplate destruction and sclerosis at the L3-L4 level secondary to sequelae of osteomyelitis/discitis. There has also been progression of disc height loss at this level. No new areas of destructive endplate changes are seen to suggest additional areas of osteomyelitis/discitis. Endplate sclerotic changes are present at the L4-L5 level which appear chronic. There is partial osseous fusion across the L5-S1 level. No acute fracture is identified in the lumbar spine. Prominent disc bulge and facet hypertrophy is seen at the L3-L4 level resulting in severe spinal canal stenosis. The remainder of the lumbar spine demonstrates no evidence of high-grade spinal canal stenosis. There is asymmetric prominence of the left iliopsoas musculature relative to the right with scattered calcifications seen in both iliopsoas. 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 No obvious loculated collection is present on this exam although evaluation is not as sensitive as MRI. IMPRESSION: 1. Progression of endplate destruction at the L3-L4 level, representing sequelae of osteomyelitis/discitis. Subsequent severe spinal canal stenosis is seen at the L3-L4 level. 2. No new areas of osteomyelitis/discitis are seen in the thoracic and lumbar spine. No evidence of acute fracture or dislocation. 3. Asymmetric prominence of the left iliopsoas is relative to the right with scattered calcifications within both iliopsoas vasculature. 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 Dictated by: Dictated on workstation # [id number]
[2021-06-07 11:06] LABS: BAND NEUTROPHILS 1 %; BASOPHILS % (MANUAL) 0 %; EOSINOPHILS % (MANUAL) 0 %; LYMPHOCYTES % (MANUAL) 8 %; MONOCYTES % (MANUAL) 4 %; NEUTROPHILS % (MANUAL) 87 %; RBC MORPH NORMAL
[2021-06-07] MEDS ORDERED: ORPHENADRINE 60 MG/2 ML (NORFLEX) AMP (ED ONLY) IV ONE (11:30)
[2021-06-07] MEDS ORDERED: ACETAMINOPHEN 500 MG TAB (TYLENOL) PO ONE (12:30)
[2021-06-07] MEDS ORDERED: KETAMINE SYRINGE 50 MG/5 ML SYRINGE IV ONE (14:00)
[2021-06-07] MEDS ORDERED: LACTATED RINGERS 1,000 ML IV SCH (14:00)
[2021-06-07] MEDS ORDERED: IBUPROFEN 800 MG (MOTRIN) TAB PO ONE (15:30)
[2021-06-07] MEDS ORDERED: DEXTROSE 50% 50 ML (IMS) SYR IV ONE (16:00)
[2021-06-07 18:33] VITALS: BP 111/71
== END 2021-06-07 18:35 | disposition short-term general hospital (02) ==
LOC: EDUNIT# 09:02 → ER 09:03
DX: A41.9 Sepsis, unspecified organism (principal); M46.22 Osteomyelitis of vertebra, cervical region; I10 Essential (primary) hypertension; F41.9 Anxiety disorder, unspecified; F32.9 Major depressive disorder, single episode, unspecified; Z86.61 Personal history of infections of the central nervous system; Z79.899 Other long term (current) drug therapy; Z20.822 Contact with and (suspected) exposure to COVID-19
CPT/HCPCS: 36415; 70450; 71045; 72125; 72128; 72131; 73630; 80053; 81000; 82947; 83605; 84550; 85007; 85027; 85610; 85730; 87040; 87077; 87088; 87186; 87636

== ENCOUNTER 2022-01-04 17:31 | Emergency (ER) | payer MEDICARE, MEDICAID ==
[~2022-01-04] VITALS: Ht 195 cm; Wt 88.0 kg
[~2022-01-04 17:31] MED LIST changes: +DAPT500V18 IV; -DAPT500V3 IV; -LISI-729 PO; +LISI5TAB20 PO; +MONT-40 PO; -MONT10TA32 PO
[2022-01-04 17:45] VITALS: BP 125/69
[2022-01-04 19:32] LABS: BILIRUBIN,URINE NEGATIVE (NEGATIVE); CLARITY,URINE CLEAR; COLOR,URINE YELLOW; GLUCOSE, URINE (UA) NEGATIVE (NEGATIVE); KETONES,URINE NEGATIVE (NEGATIVE); LEUKOCYTE ESTERASE ,URINE NEGATIVE (NEGATIVE); NITRITE,URINE NEGATIVE (NEGATIVE); PH,URINE 5.5 (5-9); PROTEIN,URINE NEGATIVE (NEGATIVE)
[2022-01-04 19:41] LABS: BASOPHILS % (AUTO) 1 % (0-10); EOSINOPHILS # (AUTO) 0.3 10^3/uL (0.0-0.3); EOSINOPHILS % (AUTO) 4 % (0-10); HEMATOCRIT 45 % (40-54); HEMOGLOBIN 14.4 g/dL (13.3-17.7); LYMPHOCYTES # (AUTO) 2.7 10^3/uL (1.0-4.0); LYMPHOCYTES % (AUTO) 39 % (12-44); MEAN CORPUSCULAR HEMOGLOBIN 29 pg (25-34); MEAN CORPUSCULAR HGB CONC 32 g/dL (32-36); MEAN CORPUSCULAR VOLUME 90 fL (80-99); MEAN PLATELET VOLUME 9.5 fL (9.0-12.2); MONOCYTES # (AUTO) 0.6 10^3/uL (0.0-1.0); MONOCYTES % (AUTO) 9 % (0-12); NEUTROPHILS # (AUTO) 3.3 10^3/uL (1.8-7.8); NEUTROPHILS % (AUTO) 48 % (42-75); PLATELET COUNT 259 10^3/uL (130-400); WHITE BLOOD COUNT 6.9 10^3/uL (4.3-11.0)
--- NOTE | 2022-01-04 19:41 | Diagnostic Imaging Report ---
PROCEDURE: CT head and CT cervical spine without contrast. TECHNIQUE: Multiple contiguous axial images were obtained through the brain and cervical spine without the use of intravenous contrast. Sagittal and coronal reformations through the cervical spine were then performed. Auto Exposure Controls were utilized during the CT exam to meet ALARA standards for radiation dose reduction. INDICATION: Neurologic deficit. Left hand numbness. History of spine surgery. MRSA. COMPARISON: CT head and cervical spine without contrast 06/07/2021. FINDINGS: CT HEAD: No intracranial hemorrhage, mass effect, hydrocephalus or extra-axial fluid collections. Chronic lacunar infarct in the right basal ganglia. No CT evidence of an acute territorial infarction. Small amount of fluid in the sphenoid sinus. Mastoids are unremarkable. No acute osseous findings. CT CERVICAL SPINE: Again seen is the height loss, anterior wedging of C6 and C7 resulting in 80-90% height loss anteriorly at both levels. There also remains retrolisthesis of the C6 vertebral body in relation to C7 of approximately 0.7 cm. There is an increasing kyphosis centered at C6-C7 compared to the prior exam. Laminectomies have been performed at C5-C7 since the prior. Alignment is otherwise stable. No acute fractures are identified. The lung apices are clear. The visualized paravertebral soft tissues are unremarkable. IMPRESSION: 1. No acute intracranial CT findings. 2. Increasing kyphosis centered at C6-C7 where there is chronic severe anterior wedging and retrolisthesis of C6 on C7. Laminectomies at C5-C7 have been performed since the prior exam. Dictated by: Dictated on workstation # [id number]
[2022-01-04 19:42] LABS: BACTERIA,URINE FEW /HPF; SQUAMOUS EPITHELIAL CELL,UR RARE /HPF; WBC,URINE 0-2 /HPF
--- NOTE | 2022-01-04 19:43 | Diagnostic Imaging Report ---
PROCEDURE: CT thoracic and lumbar spine without contrast. TECHNIQUE: Multiple contiguous axial images were obtained through the thoracic and lumbar spine without the use of intravenous contrast. Sagittal and coronal reformations were then performed. All CT scans use one or more of the following dose optimizing techniques: automated exposure control, MA and/or KvP adjustment based on a patient size and exam type, or iterative reconstruction. INDICATION: Bilateral leg numbness and foot numbness. History of MRSA of the spine and surgeries. COMPARISON: CT thoracic spine and lumbar spine without contrast 06/07/2021. FINDINGS: Normal alignment of the thoracic spine. Thoracic vertebral body heights are preserved with no evidence of fracture. Mild scattered spondylotic changes result in no high-grade spinal canal or neuroforaminal narrowing in the thoracic spine. Since the prior exam, a corpectomy at L3 and L4 with cage device and posterior instrumentation at L1 through the sacroiliac joints have been performed. L4 laminectomy. Normal alignment. There are subtle lucencies about the bilateral L1 pedicle screws. The bilateral L1 pedicle screws are also now discontinuous with the posterior fixation components and are no longer fixed to the connecting rods. Hardware components appear otherwise intact. No high-grade spinal canal stenosis is evident by CT. There is likely moderate bilateral neural foraminal narrowing at L3-L4. No destructive osseous findings are identified. IVC filter. Visualized pelvis is intact. IMPRESSION: 1. Interval corpectomy at L3 and L4 with cage device and posterior instrumentation at L1 through the sacroiliac joints. L4 laminectomy. 2. The posterior fixation components of the bilateral L1 pedicle screws has become dislodged and these pedicle screws are no longer attached to the connecting rods. There are also subtle lucencies about both L1 pedicle screws which could represent early loosening. 3. No acute CT findings in the thoracic spine. Dictated by: Dictated on workstation # [id number]
--- NOTE | 2022-01-04 19:46 | Diagnostic Imaging Report ---
INDICATION: Stroke. COMPARISON is made with prior examination of 06/07/2021. FINDINGS: The heart size, mediastinal configuration, and pulmonary vascularity are within normal limits. There is no pleural effusion, pneumothorax, or pneumonia. The osseous structures are unremarkable. IMPRESSION: No acute cardiopulmonary abnormality. Dictated by: Dictated on workstation # [id number]
[2022-01-04 19:56] LABS: ALANINE AMINOTRANSFERASE 23 U/L (0-55); ALBUMIN 3.9 GM/DL (3.2-4.5); ALKALINE PHOSPHATASE 107 U/L (40-136); BILIRUBIN,TOTAL 0.5 MG/DL (0.1-1.0); BUN/CREATININE RATIO 20; CALCIUM 9.5 MG/DL (8.5-10.1); CARBON DIOXIDE 25 MMOL/L (21-32); CHLORIDE 103 MMOL/L (98-107); CREATININE SERUM 0.88 MG/DL (0.60-1.30); GFR ESTIMATED 100; GLUCOSE 95 MG/DL (70-105); POTASSIUM 4.2 MMOL/L (3.6-5.0); SODIUM 140 MMOL/L (135-145); TOTAL PROTEIN 7.4 GM/DL (6.4-8.2)
[2022-01-04 19:59] LABS: FIBRIN DEGRADATION PRODUCTS 1.18 UG/ML (0.00-0.49); PROTHROMBIN TIME PATIENT 13.2 SEC (12.2-14.7)
--- NOTE | 2022-01-04 20:15 | ED Neurological Problem ---
General Chief Complaint: Neurological Problems Stated Complaint: NUMBNESS, PAIN, Nursing Triage Note: PT BROUGHT BY SON FOR NUMBESS AND TINGLING OF FEET, LEGS, AND HANDS. DENIES CHEST PAIN. 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 PT BROUGHT TO 02 VIA WC. SON AT BEDSIDE. History of Present Illness Date Seen by Provider: Jan 04, 2022 Time Seen by Provider: 18:25 Initial Comments 56 yr M with PMH of Spine surgery end of 2020/ Spinal MRSA infections/encephalitis/CVA in 2020/HTN/DVT/IVC filter on a blood thinner, is here with complaints of numbness and tingling of the bilateral lower extremities, and tingling and pain in the bilateral upper extremities which began a day or 2 ago but has progressively been worsening. Patient also complains of saddle anesthesia which developed today, along with retention of urine. Patient was able to pass urine right before coming to the ER, but he had to strain to urinate. Patient had a normal bowel movement today morning. Patient is unable to walk on his own and needed heavy assistance from his son and also ER staff once he came into the ER. Patient also reports that he can feel his spine popping and something poking out when he feels a pop. This occurs on any type of movement. He is in 9/10 pain. Patient's neurosurgeon is at and he called the office to inform them but was told his doctor has COVID and to go to the nearest ER. Denies headache, neck stiffness, neck pain, chest pain, palpitations, shortness of breath, fever, cough. Allergies and Home Medications Allergies Coded Allergies: morphine (Unverified Allergy, Severe, pt can take Lortab, 05/11/21) RESP. ISSUES peanut (Unverified Allergy, Severe, 03/31/21) BREATHING ISSUES sumatriptan (Unverified Allergy, Severe, 03/31/21) BREATHING ISSUES Patient Home Medication List Home Medication List Reviewed: Yes Acetaminophen (Acetaminophen) 500 Mg Tablet, 500-1,000 MG PO Q8H PRN for PAIN- MILD (1-4), (Reported) Entered as Reported by: EUGENE GIVENS on 05/10/21 1306 Albuterol Sulfate (Proair Hfa) 1 Puff Puff, 2 PUFF IH Q4H PRN for SHORTNESS OF BREATH, (Reported) Entered as Reported by: MARY LALA on 03/29/21 1414 Apixaban (Eliquis) 5 Mg Tablet, 5 MG PO BID Prescribed by: FREDDIE MESA on 05/14/21 1125 Aspirin (Aspirin EC) 81 Mg Tablet.dr, 81 MG PO DAILY Prescribed by: FREDDIE MESA on 05/14/21 1302 Atorvastatin Calcium (Atorvastatin Calcium) 20 Mg Tablet, 20 MG PO DAILY, (Reported) Entered as Reported by: MARY LALA on 03/29/21 1414 Cyanocobalamin (Vitamin B-12) (Vitamin B-12) 1,000 Mcg Tablet, 1,000 MCG PO DAILY, (Reported) Entered as Reported by: EUGENE GIVENS on 05/10/21 1306 Daptomycin (Daptomycin) 500 Mg Vial, 500 MG IV DAILY Prescribed by: FREDDIE MESA on 05/14/21 1013 Fluticasone Propionate (Fluticasone Propionate) 16 Gm [place].susp, 1-2 SPRAYS NSEACH DAILY, (Reported) Entered as Reported by: MARY LALA on 03/29/21 1414 Fluticasone/Umeclidin/Vilanter (Trelegy Ellipta 100-62.5-25) 1 Each Blst.w.dev, 1 EACH IH DAILY, (Reported) Entered as Reported by: MARY LALA on 03/29/21 1414 Gabapentin (Neurontin) 300 Mg Capsule, 900 MG PO TID, (Reported) Entered as Reported by: EUGENE GIVENS on 05/10/21 1306 Hydrocodone/Acetaminophen (Hydrocodone-Acetamin 5-325 mg) 1 Each Tablet, 1 TAB PO TID PRN for PAIN-MODERATE (5-7) Prescribed by: FREDDIE MESA on 05/14/21 1615 Latanoprost (Xalatan) 2.5 Ml Drops, 1 DROP OU HS, (Reported) Entered as Reported by: EUGENE GIVENS on 05/10/21 1306 Lisinopril (Lisinopril) 5 Mg Tablet, 5 MG PO DAILY, (Reported) Entered as Reported by: MARY LALA on 03/29/21 1414 Meloxicam (Meloxicam) 15 Mg Tablet, 15 MG PO HS, (Reported) Entered as Reported by: EUGENE GIVENS on 05/10/21 1306 Metoprolol Succinate (Metoprolol Succinate) 25 Mg Tab.er.24h, 25 MG PO DAILY Prescribed by: FREDDIE MESA on 05/14/21 1125 Montelukast Sodium (Montelukast Sodium) 10 Mg Tablet, 10 MG PO HS, (Reported) Entered as Reported by: MARY LALA on 03/29/21 1414 Multivit-Min/Folic/Vit K/Lycop (Men's 50 Plus Multivitamin Tab) 1 Each Tablet, 1 EACH PO DAILY, (Reported) Entered as Reported by: EUGENE GIVENS on 05/10/21 1306 Nortriptyline HCl (Nortriptyline HCl) 75 Mg Capsule, 75 MG PO HS, (Reported) Entered as Reported by: MARY LALA on 03/29/21 141 Paroxetine HCl (Paroxetine HCl) 30 Mg Tablet, 60 MG PO HS, (Reported) Entered as Reported by: MARY LALA on 03/29/21 141 Tamsulosin HCl (Flomax) 0.4 Mg Cap, 0.8 MG PO HS, (Reported) Entered as Reported by: MARY LALA on 03/29/21 141 Timolol Maleate (Timolol Maleate 0.5%) 5 Ml Drops, 1 DROP OU DAILY, (Reported) Entered as Reported by: MARY LALA on 03/29/21 141 Tizanidine HCl (Tizanidine HCl) 2 Mg Tablet, 2 MG PO BID PRN for MUSCLE SPASMS, (Reported) Entered as Reported by: MIGUEL VÁZQUEZ on 05/08/212104 Review of Systems Review of Systems Constitutional: no symptoms reported Eyes: No Symptoms Reported Ears, Nose, Mouth, Throat: no symptoms reported Respiratory: no symptoms reported Cardiovascular: no symptoms reported Gastrointestinal: no symptoms reported Genitourinary: no symptoms reported Musculoskeletal: back pain, muscle stiffness Skin: no symptoms reported Psychiatric/Neurological: Numbness, Tingling, Weakness Endocrine: No Symptoms Reported Hematologic/Lymphatic: No Symptoms Reported Past Ahqfuwf-Oqxrjb-Hcfvkh Hx Patient Social History Tobacco Use?: No Substance use?: No Alcohol Use?: No Pt feels they are or have been: No Immunizations Up To Date First/Initial COVID19 Vaccinat: 10/2020 Second COVID19 Vaccination Rasheed: 11/2020 COVID19 Vaccine Language Pathologist: MODERNJuan Seasonal Allergies Seasonal Allergies: No Past Medical History Surgery/Hospitalization HX: PMH;SPINE ISSUES, HX MRSA, HTN, HYPERLIPIDEMIA. SURGERY;SPINAL SURGERY 07/2021, KNEE X'S 5, HIP, AND GALLBLADDER. Surgeries: Yes Abdominal, Gallbladder, Orthopedic Respiratory: No Cardiac: Yes Hypertension Neurological: Yes (confused when he came in) Genitourinary: No Prostate Problems Gastrointestinal: Yes Diverticulosis, Polyps, Gall Bladder Disease Musculoskeletal: Yes (?? abscess around psoas ms) Degenerate Disk Disease Endocrine: No HEENT: Yes Cataract Hearing Impairment: Denies Cancer: No Psychosocial: Yes Anxiety, Depression Integumentary: No Blood Disorders: Yes (HYPOGAMULGLOBULINEMIA) Adverse Reaction/Blood Tranf: No Family Medical History Cancer Physical Exam Vital Signs Vital Signs - First Documented 01/04/22 17:45 Temp 36.7 Pulse 74 Resp 18 B/P (MAP) 125/69 (87) Pulse Ox 97 O2 Delivery Room Air Capillary Refill : Less Than 3 Seconds Height, Weight, BMI Height: '" Weight: lbs. oz. kg; 23.00 BMI Method: General Appearance: no apparent distress HEENT: PERRL/EOMI, normal ENT inspection, pharynx normal Neck: non-tender, full range of motion, supple, other (healed surgical scars on posterior neck) Respiratory: chest non-tender, lungs clear, normal breath sounds, no respiratory distress Cardiovascular: normal peripheral pulses, regular rate, rhythm, no edema Gastrointestinal: normal bowel sounds, non tender, soft Back: no CVA tenderness, decreased range of motion, muscle spasm, vertebral tenderness, other (healed surgical scars in the lower back) Extremities: no pedal edema, no calf tenderness, other ( tendernes on movement of extremities. Unable to ambulate on his own.) Neurologic/Psychiatric: music internship II-XII nml as tested, alert, normal mood/affect, oriented x 3, abnormal gait (unable to ambulate without assistance), sensory deficit (Bilateral saddle anesthesia present. ) Crainal Nerves: normal hearing, normal speech, PERRL Skin: normal color Progress/Results/Core Measures Results/Orders Lab Results Laboratory Tests Test 01/04/22 17:50 01/04/22 18:50 01/04/22 19:26 Range/Units White Blood Count 6.9 4.3-11.0 10^3/uL Red Blood Count 4.99 4.30-5.52 10^6/uL Hemoglobin 14.4 13.3-17.7 g/dL Hematocrit 45 40-54 % Mean Corpuscular Volume 90 80-99 fL Mean Corpuscular Hemoglobin 29 25-34 pg Mean Corpuscular Hemoglobin Concent 32 32-36 g/dL Red Cell Distribution Width 14.4 10.0-14.5 % Platelet Count 259 130-400 10^3/uL Mean Platelet Volume 9.5 9.0-12.2 fL Immature Granulocyte % (Auto) 0 % Neutrophils (%) (Auto) 48 42-75 % Lymphocytes (%) (Auto) 39 12-44 % Monocytes (%) (Auto) 9 0-12 % Eosinophils (%) (Auto) 4 0-10 % Basophils (%) (Auto) 1 0-10 % Neutrophils # (Auto) 3.3 1.8-7.8 10^3/uL Lymphocytes # (Auto) 2.7 1.0-4.0 10^3/uL Monocytes # (Auto) 0.6 0.0-1.0 10^3/uL Eosinophils # (Auto) 0.3 0.0-0.3 10^3/uL Basophils # (Auto) 0.0 0.0-0.1 10^3/uL Immature Granulocyte # (Auto) 0.0 0.0-0.1 10^3/uL Prothrombin Time 13.2 12.2-14.7 SEC INR Comment 1.0 0.8-1.4 Activated Partial Thromboplast Time 41 H 24-35 SEC D-Dimer 1.18 H 0.00-0.49 UG/ML Sodium Level 140 135-145 MMOL/L Potassium Level 4.2 3.6-5.0 MMOL/L Chloride Level 103 98-107 MMOL/L Carbon Dioxide Level 25 21-32 MMOL/L Anion Gap 12 5-14 MMOL/L Blood Urea Nitrogen 18 7-18 MG/DL Creatinine 0.88 0.60-1.30 MG/DL Estimat Glomerular Filtration Rate 100 BUN/Creatinine Ratio 20 Glucose Level 95 70-105 MG/DL Calcium Level 9.5 8.5-10.1 MG/DL Corrected Calcium 9.6 8.5-10.1 MG/DL Total Bilirubin 0.5 0.1-1.0 MG/DL Aspartate Amino Transf (AST/SGOT) 26 5-34 U/L Alanine Aminotransferase (ALT/SGPT) 23 0-55 U/L Alkaline Phosphatase 107 40-136 U/L Troponin I < 0.028 <0.028 NG/ML Total Protein 7.4 6.4-8.2 GM/DL Albumin 3.9 3.2-4.5 GM/DL Glucometer 70 70-110 MG/DL Urine Color YELLOW Urine Clarity CLEAR Urine pH 5.5 5-9 Urine Specific [place] 1.025 H 1.016-1.022 Urine Protein NEGATIVE NEGATIVE Urine Glucose (UA) NEGATIVE NEGATIVE Urine Ketones NEGATIVE NEGATIVE Urine Nitrite NEGATIVE NEGATIVE Urine Bilirubin NEGATIVE NEGATIVE Urine Urobilinogen 0.2 < = 1.0 MG/DL Urine Leukocyte Esterase NEGATIVE NEGATIVE Urine RBC (Auto) 2+ H NEGATIVE Urine RBC 5-10 H /HPF Urine WBC 0-2 /HPF Urine Squamous Epithelial Cells RARE /HPF Urine Crystals NONE /LPF Urine Bacteria FEW H /HPF Urine Casts NONE /LPF Urine Mucus SMALL H /LPF Urine Culture Indicated YES My Orders Orders - ANAYELI FRENCH MD Cbc With Automated Diff (01/04/22 18:35) Protime With Inr (01/04/22 18:35) Partial Thromboplastin Time (01/04/22 18:35) Comprehensive Metabolic Panel (01/04/22 18:35) Fibrin Degradation Products (01/04/22 18:35) Troponin I [place] (01/04/22 18:35) Ua Culture If Indicated (01/04/22 18:35) Chest 1 View, Ap/Pa Only (01/04/22 18:35) Catheter(Urinary) Insert & Ass 03,15 (01/04/22 18:35) Ekg Tracing (01/04/22 18:35) Nothing By Mouth (01/04/22 Dinner) Accucheck Stat ONCE (01/04/22 18:35) Ed Iv/Invasive Line Start (01/04/22 18:35) Vital Signs Stroke Patient Q15M (01/04/22 18:35) O2 (01/04/22 18:35) Intake & Output 06,14,22 (01/04/22 18:35) Monitor-Rhythm Ecg Trace Only (01/04/22 18:35) Dysphagia Screening Tool Q10MX1 (01/04/22 18:35) Lipid Panel (01/05/22 06:00) Dexamethasone Injection (Decadron Inje (01/04/22 18:45) Ct Thoracic/Lumbar Spine Wo (01/04/22 18:35) Ct Head/Cervical Spine Wo (01/04/22 18:35) Urine Culture (01/04/22 19:26) Hydromorphone Injection (Dilaudid Inject (01/04/22 20:30) Ketorolac Injection (Toradol Injection) (01/04/22 20:30) Ketorolac Injection (Toradol Injection) (01/04/22 20:32) Medications Given in ED Current Medications Medications Dose Ordered Sig/Fede Route Start Time Stop Time Status Last Admin Dose Admin Dexamethasone Sodium Phosphate 10 mg ONCE ONCE IV 01/04/22 18:45 01/04/22 18:47 DC 01/04/22 18:49 10 MG Hydromorphone HCl 1 mg ONCE ONCE IV 01/04/22 20:30 01/04/22 20:31 DC 01/04/22 20:36 1 MG Ketorolac Tromethamine 15 mg ONCE ONCE IVP 01/04/22 20:30 01/04/22 20:31 DC 01/04/22 20:40 15 MG Vital Signs/I&O 01/04/22 17:45 Temp 36.7 Pulse 74 Resp 18 B/P (MAP) 125/69 (87) Pulse Ox 97 O2 Delivery Room Air Blood Pressure Mean: 87 FSBG Bedside Testing Finger Stick Blood Glucose: 70 Progress Progress Note : Progress Note 1. ACUTE ON CHRONIC SPINAL SURGERY CHANGES: RULE OUT OF CORD COMPRESSION - CT HEAD/ C-SPINE: see report below - CT THORACO-LUMBAR SPINE: There is likely moderate bilateral neural foraminal narrowing at L3-L4. No destructive osseous findings are identified. IVC filter. Visualized pelvis is intact. Interval corpectomy at L3 and L4 with cage device and posterior instrumentation at L1 through the sacroiliac joints. L4 laminectomy. The posterior fixation components of the bilateral L1 pedicle screws has become dislodged and these pedicle screws are nolonger attached to the connecting rods. There are also subtle lucencies about both L1 pedicle screws which could represent early loosening. No acute CT findings in the thoracic spine. - Labs unremarkable - D-dimer is 1.18 but pt has an IVC filter and is on a blood thinner. He has no complaints of chest pain or SOB, and his O2 saturations are 95-100% on room air. No calf tenderness or erythema or edema. - Dexa 10mg iv STAT - Dilaudid 1mg iv and Toradol 15mg iv STAT - Pt's neurosurgeon at is Dr. Gurvinder Anton - Consulted neurosurgery, Dr. Carey who thinks he needs a MRI first and can admit to hospitalist.Will transfer pt to for Neurosurgery consult and MRI. Accepting hospitalist is Dr. Carey. - Pt agrees with plan. - Pt will go by air since there are no ground crews available to transport pt to Diagnostic Imaging Diagonstic Imaging: CT Plain Films/CT/US/NM/MRI: c-spine, head, other (Lumbar and thoracic spine) Comments [facility] [place], [place] NAME: SUNNIROCHELLE [facility] REC#: [id number] PT STATUS: REG ER : 1965 PHYSICIAN: ANAYELI FRENCH MD ADMIT DATE: 01/04/22/ER Signed Date of Exam:01/04/22 CT THORACIC/LUMBAR SPINE WO PROCEDURE: CT thoracic and lumbar spine without contrast. TECHNIQUE: Multiple contiguous axial images were obtained through the thoracic and lumbar spine without the use of intravenous contrast. Sagittal and coronal reformations were then performed. All CT scans use one or more of the following dose optimizing techniques: automated exposure control, MA and/or KvP adjustment based on a patient size and exam type, or iterative reconstruction. INDICATION: Bilateral leg numbness and foot numbness. History of MRSA of the spine and surgeries. COMPARISON: CT thoracic spine and lumbar spine without contrast 06/07/2021. FINDINGS: Normal alignment of the thoracic spine. Thoracic vertebral body heights are preserved with no evidence of fracture. Mild scattered spondylotic changes result in no high-grade spinal canal or neuroforaminal narrowing in the thoracic spine. Since the prior exam, a corpectomy at L3 and L4 with cage device and posterior instrumentation at L1 through the sacroiliac joints have been performed. L4 laminectomy. Normal alignment. There are subtle lucencies about the bilateral L1 pedicle screws. The bilateral L1 pedicle screws are also now discontinuous with the posterior fixation components and are no longer fixed to the connecting rods. Hardware components appear otherwise intact. No high-grade spinal canal stenosis is evident by CT. There is likely moderate bilateral neural foraminal narrowing at L3-L4. No destructive osseous findings are identified. IVC filter. Visualized pelvis is intact. IMPRESSION: 1. Interval corpectomy at L3 and L4 with cage device and posterior instrumentation at L1 through the sacroiliac joints. L4 laminectomy. 2. The posterior fixation components of the bilateral L1 pedicle screws has become dislodged and these pedicle screws are no longer attached to the connecting rods. There are also subtle lucencies about both L1 pedicle screws which could represent early loosening. 3. No acute CT findings in the thoracic spine. Dictated by: Dictated on workstation # [id number] Dict: 01/04/221931 Trans: 01/04/221958 [facility] [id number] Interpreted by: CAROLYNN PETTY MD Electronically signed by: CAROLYNN PETTY MD 01/04/221958 [facility] [place], [place] NAME: ROCHELLE MOELLER [facility] REC#: [id number] PT STATUS: REG ER : 1965 PHYSICIAN: ANAYELI FRENCH MD ADMIT DATE: 01/04/22/ER Signed Date of Exam:01/04/22 CHEST 1 VIEW, AP/PA ONLY INDICATION: Stroke. COMPARISON is made with prior examination of 06/07/2021. FINDINGS: The heart size, mediastinal configuration, and pulmonary vascularity are within normal limits. There is no pleural effusion, pneumothorax, or pneumonia. The osseous structures are unremarkable. IMPRESSION: No acute cardiopulmonary abnormality. Dictated by: Dictated on workstation # [id number] Dict: 01/04/221941 Trans: 01/04/221950 [facility] [id number] Interpreted by: MAK JACKSON MD Electronically signed by: MAK JACKSON MD 01/04/221950 [facility] [place] [place] NAME: ROCHELLE MOELLER [facility] REC#: [id number] PT STATUS: REG ER : 1965 PHYSICIAN: ANAYELI FRENCH MD ADMIT DATE: 01/04/22/ER Signed Date of Exam:01/04/22 CT HEAD/CERVICAL SPINE WO PROCEDURE: CT head and CT cervical spine without contrast. TECHNIQUE: Multiple contiguous axial images were obtained through the brain and cervical spine without the use of intravenous contrast. Sagittal and coronal reformations through the cervical spine were then performed. Auto Exposure Controls were utilized during the CT exam to meet ALARA standards for radiation dose reduction. INDICATION: Neurologic deficit. Left hand numbness. History of spine surgery. MRSA. COMPARISON: CT head and cervical spine without contrast 06/07/2021. FINDINGS: CT HEAD: No intracranial hemorrhage, mass effect, hydrocephalus or extra-axial fluid collections. Chronic lacunar infarct in the right basal ganglia. No CT evidence of an acute territorial infarction. Small amount of fluid in the sphenoid sinus. Mastoids are unremarkable. No acute osseous findings. CT CERVICAL SPINE: Again seen is the height loss, anterior wedging of C6 and C7 resulting in 80-90% height loss anteriorly at both levels. There also remains retrolisthesis of the C6 vertebral body in relation to C7 of approximately 0.7 cm. There is an increasing kyphosis centered at C6-C7 compared to the prior exam. Laminectomies have been performed at C5-C7 since the prior. Alignment is otherwise stable. No acute fractures are identified. The lung apices are clear. The visualized paravertebral soft tissues are unremarkable. IMPRESSION: 1. No acute intracranial CT findings. 2. Increasing kyphosis centered at C6-C7 where there is chronic severe anterior wedging and retrolisthesis of C6 on C7. Laminectomies at C5-C7 have been performed since the prior exam. Dictated by: Dictated on workstation # [id number] Dict: 01/04/221925 Trans: 01/04/221958 [facility] [id number] Interpreted by: CAROLYNN PETTY MD Electronically signed by: CAROLYNN PETTY MD 01/04/221958 Departure Communication (Admissions) Time/Spoke to Admitting Phy: 21:00 Consulted neurosurgery, Dr. Carey who thinks he needs a MRI first and can admit to hospitalist.Will transfer pt to for Neurosurgery consult and MRI. Accepting hospitalist is Dr. Carey. Time/Spoke to Consulting Phy: 20:25 Consulted neurosurgery, Dr. Carey who thinks he needs a MRI first and can admit to hospitalist. Impression Primary Impression: Foraminal stenosis of lumbar region Additional Impressions: Loosening of orthopedic screw Numbness of lower extremity Numbness of upper extremity Saddle anesthesia Disposition: XFER SHT-TRM HOSP Condition: Stable Admissions Decision to Admit Reason: Admit from ER (General) Decision to Admit/Date: Jan 04, 2022 Time/Decision to Admit Time: 20:20 Transfer Transfer Reason: Exceeds level of care Time Spoke to Accepting Phy: 20:25 Transfer Progress Notes Consulted neurosurgery, Dr. Carey who thinks he needs a MRI first and can admit to hospitalist.Will transfer pt to for Neurosurgery consult and MRI. Accepting hospitalist is Dr. Carey. Transfer Facility: Method of Transfer: Air Departure-Patient Inst. Referrals: NO,LOCAL PHYSICIAN (PCP) Primary Care Physician [facility] (Family) Primary Care Physician ANAYELI FRENCH MD Jan 04, 2022 20:15
[2022-01-04] MEDS ORDERED: KETOROLAC 15 MG/ML VIAL IVP ONE (20:30)
[2022-01-04] MEDS ORDERED: HYDROmorphone 2 MG/ML VIAL (DILAUDID) IV ONE (20:30)
[2022-01-04] MEDS ORDERED: KETOROLAC 30 MG/ML VIAL ONE (20:32)
[2022-01-05] MEDS ORDERED: fentaNYL INJ 100 MCG/2 ML AMP IVP ONE ×2 (01:00)
== END 2022-01-05 02:03 | disposition short-term general hospital (02) ==
LOC: EDUNIT# 17:31 → ER 17:36
DX: M48.061 Spinal stenosis, lumbar region without neurogenic claudication (principal); T84.038A Mechanical loosening of other internal prosthetic joint, initial encounter; R20.0 Anesthesia of skin
CPT/HCPCS: 36415; 70450; 71045; 72125; 72128; 72131; 80053; 81000; 82947; 84484; 85025; 85379; 85610; 85730; 87088; 93005

== ENCOUNTER 2022-05-28 12:54 | Emergency (ER) | payer MEDICARE, MEDICAID ==
[~2022-05-28] VITALS: Ht 195.8 cm; Wt 94.8 kg
--- NOTE | 2022-05-28 14:06 | ED Upper Extremity ---
General Chief Complaint: Upper Extremity Stated Complaint: HAND PAIN Nursing Triage Note: PT TO TRIAGE BY WC WITH COMPLAINT OF DIFFICULTY MOVING RIGHT HAND, INCONTINENCE, AND DIFFICULTY WALKING. 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 Source: patient Exam Limitations: no limitations (KELECHI FELIX APRN) History of Present Illness Date Seen by Provider: May 28, 2022 Time Seen by Provider: 14:00 Initial Comments Patient arrives to the emergency department for right hand pain, difficulty walking and urinary urgency for the past several days. Reports that he had similar symptoms in the past and ended up having a spinal abscess and spent time at . Denies fever, nausea, vomiting, Denies injury or recent fall. Was seen at the clinic this morning and told that he can increase his Fentanyl patch back to 50mcg instead of the 25mcg that he was on. Onset: other (2-3 days) Severity: moderate Pain/Injury Location: right hand Method of Injury: unknown Modifying Factors: Worse With Movement; Improves With Pain Medication (KELECHI FELIX APRN) Allergies and Home Medications Allergies Coded Allergies: morphine (Unverified Allergy, Severe, pt can take Lortab, 05/11/21) RESP. ISSUES peanut (Unverified Allergy, Severe, 03/31/21) BREATHING ISSUES sumatriptan (Unverified Allergy, Severe, 03/31/21) BREATHING ISSUES Patient Home Medication List Home Medication List Reviewed: Yes (KELECHI FELIX APRN) Acetaminophen (Acetaminophen) 500 Mg Tablet, 500-1,000 MG PO Q8H PRN for PAIN- MILD (1-4), (Reported) Entered as Reported by: EUGENE GIVENS on 05/10/21 1306 Albuterol Sulfate (Proair Hfa) 1 Puff Puff, 2 PUFF IH Q4H PRN for SHORTNESS OF BREATH, (Reported) Entered as Reported by: MARY LALA on 03/29/21 1414 Apixaban (Eliquis) 5 Mg Tablet, 5 MG PO BID Prescribed by: FREDDIE MESA on 05/14/21 1125 Aspirin (Aspirin EC) 81 Mg Tablet.dr, 81 MG PO DAILY Prescribed by: FREDDIE MESA on 05/14/21 1302 Atorvastatin Calcium (Atorvastatin Calcium) 20 Mg Tablet, 20 MG PO DAILY, (Reported) Entered as Reported by: MARY LALA on 03/29/21 1414 Cyanocobalamin (Vitamin B-12) (Vitamin B-12) 1,000 Mcg Tablet, 1,000 MCG PO DAILY, (Reported) Entered as Reported by: EUGENE GIVENS on 05/10/21 1306 Daptomycin (Daptomycin) 500 Mg Vial, 500 MG IV DAILY Prescribed by: FREDDIE MESA on 05/14/21 1013 Fluticasone Propionate (Fluticasone Propionate) 16 Gm [place].susp, 1-2 SPRAYS NSEACH DAILY, (Reported) Entered as Reported by: MARY LALA on 03/29/21 141 Fluticasone/Umeclidin/Vilanter (Trelegy Ellipta 100-62.5-25) 1 Each Blst.w.dev, 1 EACH IH DAILY, (Reported) Entered as Reported by: MARY LALA on 03/29/21 141 Gabapentin (Neurontin) 300 Mg Capsule, 900 MG PO TID, (Reported) Entered as Reported by: EUGENE GIVENS on 05/10/21 1306 Hydrocodone/Acetaminophen (Hydrocodone-Acetamin 5-325 mg) 1 Each Tablet, 1 TAB PO TID PRN for PAIN-MODERATE (5-7) Prescribed by: FREDDIE MESA on 05/14/21 1615 Latanoprost (Xalatan) 2.5 Ml Drops, 1 DROP OU HS, (Reported) Entered as Reported by: EUGENE GIVENS on 05/10/21 1306 Lisinopril (Lisinopril) 5 Mg Tablet, 5 MG PO DAILY, (Reported) Entered as Reported by: MARY LALA on 03/29/21 1414 Meloxicam (Meloxicam) 15 Mg Tablet, 15 MG PO HS, (Reported) Entered as Reported by: EUGENE GIVENS on 05/10/21 1306 Metoprolol Succinate (Metoprolol Succinate) 25 Mg Tab.er.24h, 25 MG PO DAILY Prescribed by: FREDDIE MESA on 05/14/21 1125 Montelukast Sodium (Montelukast Sodium) 10 Mg Tablet, 10 MG PO HS, (Reported) Entered as Reported by: MARY LALA on 03/29/21 1414 Multivit-Min/Folic/Vit K/Lycop (Men's 50 Plus Multivitamin Tab) 1 Each Tablet, 1 EACH PO DAILY, (Reported) Entered as Reported by: EUGENE GIVENS on 05/10/21 1306 Nortriptyline HCl (Nortriptyline HCl) 75 Mg Capsule, 75 MG PO HS, (Reported) Entered as Reported by: MARY LALA on 03/29/21 141 Paroxetine HCl (Paroxetine HCl) 30 Mg Tablet, 60 MG PO HS, (Reported) Entered as Reported by: MARY LALA on 03/29/21 141 Tamsulosin HCl (Flomax) 0.4 Mg Cap, 0.8 MG PO HS, (Reported) Entered as Reported by: MARY LALA on 03/29/21 141 Timolol Maleate (Timolol Maleate 0.5%) 5 Ml Drops, 1 DROP OU DAILY, (Reported) Entered as Reported by: MARY LALA on 03/29/21 141 Tizanidine HCl (Tizanidine HCl) 2 Mg Tablet, 2 MG PO BID PRN for MUSCLE SPASMS, (Reported) Entered as Reported by: MIGUEL VÁZQUEZ on 05/08/212104 Review of Systems Constitutional: No chills, No diaphoresis, No dizziness, No fever; weakness (generalized) EENTM: no symptoms reported Respiratory: No cough, No short of breath, No stridor, No wheezing Cardiovascular: No chest pain, No palpitations Gastrointestinal: No abdominal pain, No diarrhea, No nausea, No vomiting Genitourinary: No discharge, No dysuria, No frequency; incontinence (urge); No pain Musculoskeletal: back pain (chronic), neck pain (chronic) Skin: No pruritus, No rash (KELECHI FELIX APRN) All Other Systems Reviewed Negative Unless Noted: Yes (KLEECHI FELIX APRN) Past Fznkwxw-Pfgvxv-Wjzrhk Hx Patient Social History Tobacco Use?: No Use of E-Cig and/or Vaping dev: No Substance use?: No Alcohol Use?: No Pt feels they are or have been: No (KELECHI FELIX APRN) Immunizations Up To Date First/Initial COVID19 Vaccinat: 10/2020 Second COVID19 Vaccination Rasheed: 11/2020 Third COVID19 Vaccination Date: 05/2021 (KELECHI FELIX APRN) Seasonal Allergies Seasonal Allergies: No (KELECHI FELIX APRN) Past Medical History Surgery/Hospitalization HX: PMH;SPINE ISSUES, HX MRSA, HTN, HYPERLIPIDEMIA. SURGERY;SPINAL SURGERY 07/2021, KNEE X'S 5, HIP, AND GALLBLADDER. Surgeries: Yes Abdominal, Gallbladder, Orthopedic Respiratory: No Cardiac: Yes Hypertension Neurological: Yes (confused when he came in) Genitourinary: No Prostate Problems Gastrointestinal: Yes Diverticulosis, Polyps, Gall Bladder Disease Musculoskeletal: Yes (?? abscess around psoas ms) Degenerate Disk Disease Endocrine: No HEENT: Yes Cataract Hearing Impairment: Denies Cancer: No Psychosocial: Yes Anxiety, Depression Integumentary: No Blood Disorders: Yes (HYPOGAMULGLOBULINEMIA) Adverse Reaction/Blood Tranf: No (KELECHI FELIX APRN) Family Medical History Reviewed Nursing Family Hx (KELECHI FELIX APRN) Cancer (KELECHI FELIX APRN) Physical Exam Vital Signs Vital Signs - First Documented 05/28/22 13:42 Temp 37.2 Pulse 78 Resp 16 B/P (MAP) 143/81 (101) Pulse Ox 100 O2 Delivery Room Air (SAE CERON MD) Vital Signs Capillary Refill : Less Than 3 Seconds (KELECHI FELIX APRN) Height, Weight, BMI Height: '" Weight: lbs. oz. kg; 24.00 BMI Method: General Appearance: WD/WN, no apparent distress Neck: normal inspection, tender midline (chronic) Cardiovascular: regular rate, rhythm, no edema, no murmur Respiratory: chest non-tender, lungs clear, normal breath sounds, no respiratory distress, no accessory muscle use Gastrointestinal: normal bowel sounds, non tender, soft Back: No muscle spasm; vertebral tenderness (midline lumbar spine tenderness to palpation) Hand: normal inspection, no evidence of injury, normal ROM, Right Neurologic/Psychiatric: alert, normal mood/affect, oriented x 3 Skin: normal color, warm/dry (KELECHI FELIX APRN) Progress/Results/Core Measures Results/Orders Lab Results Laboratory Tests Test 05/28/22 14:24 05/28/22 16:16 Range/Units White Blood Count 6.1 4.3-11.0 10^3/uL Red Blood Count 5.16 4.30-5.52 10^6/uL Hemoglobin 14.6 13.3-17.7 g/dL Hematocrit 45 40-54 % Mean Corpuscular Volume 87 80-99 fL Mean Corpuscular Hemoglobin 28 25-34 pg Mean Corpuscular Hemoglobin Concent 33 32-36 g/dL Red Cell Distribution Width 14.3 10.0-14.5 % Platelet Count 169 130-400 10^3/uL Mean Platelet Volume 8.9 L 9.0-12.2 fL Immature Granulocyte % (Auto) 0 % Neutrophils (%) (Auto) 71 42-75 % Lymphocytes (%) (Auto) 20 12-44 % Monocytes (%) (Auto) 6 0-12 % Eosinophils (%) (Auto) 2 0-10 % Basophils (%) (Auto) 1 0-10 % Neutrophils # (Auto) 4.3 1.8-7.8 10^3/uL Lymphocytes # (Auto) 1.2 1.0-4.0 10^3/uL Monocytes # (Auto) 0.4 0.0-1.0 10^3/uL Eosinophils # (Auto) 0.1 0.0-0.3 10^3/uL Basophils # (Auto) 0.0 0.0-0.1 10^3/uL Immature Granulocyte # (Auto) 0.0 0.0-0.1 10^3/uL Sodium Level 137 135-145 MMOL/L Potassium Level 4.2 3.6-5.0 MMOL/L Chloride Level 104 98-107 MMOL/L Carbon Dioxide Level 27 21-32 MMOL/L Anion Gap 6 5-14 MMOL/L Blood Urea Nitrogen 14 7-18 MG/DL Creatinine 0.83 0.60-1.30 MG/DL Estimat Glomerular Filtration Rate 101 BUN/Creatinine Ratio 17 Glucose Level 88 70-105 MG/DL Lactic Acid Level 1.88 0.50-2.00 MMOL/L Calcium Level 9.3 8.5-10.1 MG/DL Corrected Calcium 9.5 8.5-10.1 MG/DL Total Bilirubin 0.7 0.1-1.0 MG/DL Aspartate Amino Transf (AST/SGOT) 34 5-34 U/L Alanine Aminotransferase (ALT/SGPT) 40 0-55 U/L Alkaline Phosphatase 131 40-136 U/L Total Protein 6.9 6.4-8.2 GM/DL Albumin 3.7 3.2-4.5 GM/DL Urine Color YELLOW Urine Clarity CLEAR Urine pH 5.5 5-9 Urine Specific Lancing >=1.030 1.016-1.022 Urine Protein NEGATIVE NEGATIVE Urine Glucose (UA) NEGATIVE NEGATIVE Urine Ketones NEGATIVE NEGATIVE Urine Nitrite NEGATIVE NEGATIVE Urine Bilirubin NEGATIVE NEGATIVE Urine Urobilinogen 0.2 < = 1.0 MG/DL Urine Leukocyte Esterase NEGATIVE NEGATIVE Urine RBC (Auto) 3+ H NEGATIVE Urine RBC RARE /HPF Urine WBC NONE /HPF Urine Squamous Epithelial Cells 0-2 /HPF Urine Crystals NONE /LPF Urine Bacteria TRACE /HPF Urine Casts NONE /LPF Urine Mucus SMALL H /LPF Urine Culture Indicated NO (SAE CERON MD) Medications Given in ED Current Medications Medications Dose Ordered Sig/Fede Route Start Time Stop Time Status Last Admin Dose Admin Fentanyl Citrate 50 mcg ONCE ONCE IVP 05/28/22 14:15 05/28/22 14:16 DC 05/28/22 14:26 50 MCG (SAE CERON MD) Vital Signs/I&O 05/28/22 05/28/22 13:42 17:15 Temp 37.2 37.2 Pulse 78 88 Resp 16 20 B/P (MAP) 143/81 (101) 121/75 Pulse Ox 100 100 O2 Delivery Room Air Room Air (SAE CERON MD) Blood Pressure Mean: 101 Progress Progress Note : Progress Note Patient with history of spinal abscess in the past and lengthy hospital stay. Reports that he is having similar pain and wants to make sure that symptoms are not getting worse. Is having some urinary urgency and is not making it to the bathroom in time. Which is not normal for him. Will make sure that he does not have an infection in his urine causing these symptoms. No red flag findings were appreciated on exam. 1640: CT and labs were reassuring. Lactic acid and WBC were normal. He was afebrile while he was here in the department in addition. CT scans with no acute changes. Instructed to increase his Fentanyl patch as directed earlier today. Reasons to return to the ER were discussed with patient. (KELECHI FELIX APRN) Diagnostic Imaging Diagonstic Imaging: CT Plain Films/CT/US/NM/MRI: c-spine Comments NAME: ROCHELLE MOELLER REC#: [id number] PT STATUS: REG ER : 1965 PHYSICIAN: KELECHI FELIX APRN ADMIT DATE: 05/28/22/ER Signed Date of Exam:05/28/22 CT CERVICAL SPINE WO PROCEDURE: CT cervical spine without contrast. TECHNIQUE: Multiple contiguous axial images were obtained through the cervical spine without the use of intravenous contrast. Sagittal and coronal reformations were then performed. Auto Exposure Controls were utilized during the CT exam to meet ALARA standards for radiation dose reduction. INDICATION: Neck pain. FINDINGS: There is straightening of the normal cervical lordosis. There has been anterior cervical fusion from C5 through T1. There has been a C6-C7 laminectomy. There is no acute fracture or traumatic subluxation. Hardware is intact. Prevertebral soft tissues are within normal limits. The odontoid is intact and the lateral masses are well aligned. There is bilateral sarbjit-screw lucency at C5. The lung apices are clear. IMPRESSION: 1. Postsurgical changes of an anterior cervical fusion from C5 to T1 with mechanical spacer extending from inferior endplate of C5 through the superior endplate of T1. There has been a C6-C7 laminectomy. There is no acute fracture or traumatic subluxation. 2. Bilateral sarbjit-screw lucency at C5. Dictated by: Dictated on workstation # [id number] Dict: 05/28/22 1534 Trans: 05/28/22 1547 [facility] [id number] Interpreted by: MAK JACKSON MD Electronically signed by: MAK JACKSON MD 05/28/22 1547 Diagonstic Imaging: CT Plain Films/CT/US/NM/MRI: other (lumbar spine) Comments NAME: ROCHELLE MOELLER [facility] REC#: [id number] PT STATUS: REG ER : 1965 PHYSICIAN: KELECHI FELIX APRN ADMIT DATE: 05/28/22/ER Draft Date of Exam:09/10/22 CT LUMBAR SPINE WO EXAMINATION: CT lumbar spine without contrast. TECHNIQUE: Multiple contiguous axial images were obtained through the lumbar spine without the use of intravenous contrast. Sagittal and coronal reformations were then performed. All CT scans use one or more of the following dose optimizing techniques: automated exposure control, MA and/or KvP adjustment based on patient size and exam type or iterative reconstruction. HISTORY: Prior spinal infection, back pain and difficulty walking. COMPARISON: 01/04/2022. FINDINGS: There are postsurgical changes of L3 and L4 corpectomy and interbody spacer placement. Mild height loss at L2 is unchanged. The instrumentation is intact. There is a posterior spinal fusion from L1 through S1. There is mild lucency about the screws within the vertebral body at L2 which is increased from prior exam. The connecting rods are disconnected from the screws at L1. Fusion extends into both iliac wings. There is unchanged mild spinal canal stenosis at L2-L3. No new spinal canal stenosis. No drainable fluid collection. An inferior vena cava filter is present. The aorta is normal. IMPRESSION: Postsurgical changes of corpectomy of L3 and L4 with interbody spacer placement and fusion from L1 through both iliac wings. There is a mild lucency about the screws of L1 with disconnection of the screws from interconnecting rods. Dictated on workstation # [id number] Dict: 05/28/22 1535 Trans: 05/28/22 1549 [facility] [id number] Interpreted by: CHINO DEL TORO MD Electronically signed by: (KELECHI FELIX APRN) Departure Impression Primary Impression: Acute exacerbation of chronic low back pain Disposition: 01 HOME, SELF-CARE Condition: Stable Departure-Patient Inst. Decision time for Depature: 16:47 (KELECHI FELIX APRN) Referrals: NO,LOCAL PHYSICIAN (PCP) Primary Care Physician [facility] (Family) Primary Care Physician Patient Instructions: Chronic Pain Add. Discharge Instructions: 1. Home and rest. 2. Continue pain medications/patch as prescribed. 3. Tylenol/Ibuprofen as needed for pain. 4. Follow up with PCP as needed. 5. Return here if worse or concerns. All discharge instructions reviewed with patient and/or family. Voiced understanding. ATTENDING NOTE: I was attending physician physically present and available for consultation in the emergency department during the care of this patient. I was not directly involved in the delivery of care or decision making process for this patient during this specific encounter. (SAE CERON MD) KELECHI FELIX APRN May 28, 2022 14:06 SAE CERON MD May 28, 2022 19:08
[2022-05-28] MEDS ORDERED: fentaNYL INJ 100 MCG/2 ML AMP IVP ONE (14:15)
[2022-05-28 14:34] LABS: BASOPHILS % (AUTO) 1 % (0-10); EOSINOPHILS # (AUTO) 0.1 10^3/uL (0.0-0.3); EOSINOPHILS % (AUTO) 2 % (0-10); HEMATOCRIT 45 % (40-54); HEMOGLOBIN 14.6 g/dL (13.3-17.7); LYMPHOCYTES # (AUTO) 1.2 10^3/uL (1.0-4.0); LYMPHOCYTES % (AUTO) 20 % (12-44); MEAN CORPUSCULAR HEMOGLOBIN 28 pg (25-34); MEAN CORPUSCULAR HGB CONC 33 g/dL (32-36); MEAN CORPUSCULAR VOLUME 87 fL (80-99); MEAN PLATELET VOLUME 8.9 fL (9.0-12.2); MONOCYTES # (AUTO) 0.4 10^3/uL (0.0-1.0); MONOCYTES % (AUTO) 6 % (0-12); NEUTROPHILS # (AUTO) 4.3 10^3/uL (1.8-7.8); NEUTROPHILS % (AUTO) 71 % (42-75); PLATELET COUNT 169 10^3/uL (130-400); WHITE BLOOD COUNT 6.1 10^3/uL (4.3-11.0)
[2022-05-28 14:40] LABS: ALBUMIN 3.7 GM/DL (3.2-4.5); POTASSIUM 4.2 MMOL/L (3.6-5.0)
[2022-05-28 14:42] LABS: CALCIUM 9.3 MG/DL (8.5-10.1)
[2022-05-28 14:43] LABS: TOTAL PROTEIN 6.9 GM/DL (6.4-8.2)
[2022-05-28 14:45] LABS: BILIRUBIN,TOTAL 0.7 MG/DL (0.1-1.0)
[2022-05-28 14:46] LABS: CREATININE SERUM 0.83 MG/DL (0.60-1.30)
--- NOTE | 2022-05-28 15:45 | Diagnostic Imaging Report ---
PROCEDURE: CT cervical spine without contrast. TECHNIQUE: Multiple contiguous axial images were obtained through the cervical spine without the use of intravenous contrast. Sagittal and coronal reformations were then performed. Auto Exposure Controls were utilized during the CT exam to meet ALARA standards for radiation dose reduction. INDICATION: Neck pain. FINDINGS: There is straightening of the normal cervical lordosis. There has been anterior cervical fusion from C5 through T1. There has been a C6-C7 laminectomy. There is no acute fracture or traumatic subluxation. Hardware is intact. Prevertebral soft tissues are within normal limits. The odontoid is intact and the lateral masses are well aligned. There is bilateral sarbjit-screw lucency at C5. The lung apices are clear. IMPRESSION: 1. Postsurgical changes of an anterior cervical fusion from C5 to T1 with mechanical spacer extending from inferior endplate of C5 through the superior endplate of T1. There has been a C6-C7 laminectomy. There is no acute fracture or traumatic subluxation. 2. Bilateral sarbjit-screw lucency at C5. Dictated by: Dictated on workstation # [id number]
--- NOTE | 2022-05-28 15:50 | Diagnostic Imaging Report ---
EXAMINATION: CT lumbar spine without contrast. TECHNIQUE: Multiple contiguous axial images were obtained through the lumbar spine without the use of intravenous contrast. Sagittal and coronal reformations were then performed. All CT scans use one or more of the following dose optimizing techniques: automated exposure control, MA and/or KvP adjustment based on patient size and exam type or iterative reconstruction. HISTORY: Prior spinal infection, back pain and difficulty walking. COMPARISON: 01/04/2022. FINDINGS: There are postsurgical changes of L3 and L4 corpectomy and interbody spacer placement. Mild height loss at L2 is unchanged. The instrumentation is intact. There is a posterior spinal fusion from L1 through S1. There is mild lucency about the screws within the vertebral body at L2 which is increased from prior exam. The connecting rods are disconnected from the screws at L1. Fusion extends into both iliac wings. There is unchanged mild spinal canal stenosis at L2-L3. No new spinal canal stenosis. No drainable fluid collection. An inferior vena cava filter is present. The aorta is normal. IMPRESSION: Postsurgical changes of corpectomy of L3 and L4 with interbody spacer placement and fusion from L1 through both iliac wings. There is a mild lucency about the screws of L1 with disconnection of the screws from interconnecting rods. Dictated by: Dictated on workstation # [id number]
[2022-05-28 16:23] LABS: BILIRUBIN,URINE NEGATIVE (NEGATIVE); CLARITY,URINE CLEAR; COLOR,URINE YELLOW; GLUCOSE, URINE (UA) NEGATIVE (NEGATIVE); KETONES,URINE NEGATIVE (NEGATIVE); LEUKOCYTE ESTERASE ,URINE NEGATIVE (NEGATIVE); NITRITE,URINE NEGATIVE (NEGATIVE); PH,URINE 5.5 (5-9); PROTEIN,URINE NEGATIVE (NEGATIVE)
[2022-05-28 16:36] LABS: BACTERIA,URINE TRACE /HPF; RBC,URINE RARE /HPF; SQUAMOUS EPITHELIAL CELL,UR 0-2 /HPF
[2022-05-28 17:15] VITALS: BP 121/75
== END 2022-05-28 17:15 | disposition home or self-care (01) ==
LOC: EDUNIT# 12:54 → ER 12:56
DX: M54.50 Low back pain, unspecified (principal); G89.29 Other chronic pain
CPT/HCPCS: 36415; 72125; 72131; 80053; 81000; 83605; 85025